=== PATIENT | male | born 1955 | race Caucasian/White ===

== ENCOUNTER 2018-02-07 08:35 | Observation (INO) | payer BC ==
[2018-02-04 18:41] LABS: BASOPHILS % 0.9 % (0.0-1.0); EOSINOPHILS # (AUTO) 0.1 (0.0-0.4); EOSINOPHILS % 2.9 % (0.0-6.0); HEMATOCRIT 30.9 % (38.2-49.6); HEMOGLOBIN 10.2 g/dL (14.0-18.0); LYMPHOCYTES # (AUTO) 0.9 (1.0-3.2); LYMPHOCYTES % 21.3 % (18.0-39.1); MEAN CORPUSCULAR HEMOGLOBIN 31.2 pg (28-32); MEAN CORPUSCULAR VOLUME 94.5 fL (81-99); MONOCYTES # (AUTO) 0.5 (0.2-0.8); MONOCYTES % 10.9 % (4.4-11.3); NEUTROPHILS # (AUTO) 2.8 (2.1-6.9); NEUTROPHILS % 63.5 % (38.7-80.0); PLATELET COUNT 72 x10e3/uL (140-360); RED BLOOD COUNT 3.27 x10e6/uL (4.3-5.7); RED CELL DISTRIBUTION WIDTH 15.5 % (11.7-14.4)
[2018-02-04 18:56] LABS: ALANINE AMINOTRANSFERASE 20 IU/L (0-55); ALBUMIN 2.7 g/dL (3.5-5.0); ALBUMIN/GLOBULIN RATIO 0.9 (0.8-2.0); ALKALINE PHOSPHATASE 134 IU/L (40-150); ANION GAP 12.6 mmol/L (8-16); BLOOD UREA NITROGEN 8 mg/dL (7-26); BUN/CREATININE RATIO 9 (6-25); CALCIUM 8.7 mg/dL (8.4-10.2); CARBON DIOXIDE 29 mmol/L (22-29); CHLORIDE 101 mmol/L (98-107); CREATININE, SERUM 0.92 mg/dL (0.72-1.25); EST GLOMERULAR FILTRATION RATE > 60 ML/MIN (60-); GLUCOSE 102 mg/dL (74-118); POTASSIUM 3.6 mmol/L (3.5-5.1); SODIUM 139 mmol/L (136-145)
[2018-02-04 18:57] LABS: INR 1.29; PROTHROMBIN TIME 17.2 seconds (11.9-14.5)
[2018-02-04 18:58] LABS: PARTIAL THROMBOPLASTIN TIME 37.4 seconds (23.8-35.5)
--- NOTE | 2018-02-04 19:04 | Diagnostic Imaging Report ---
EXAMINATION: CHEST 2 VIEWS INDICATION: ^PRE ADMIT ^[id number] ^175 COMPARISON: None FINDINGS: PA and lateral views TUBES and LINES: None. LUNGS: Lungs are well inflated. Right lower lobe airspace opacity with mild volume loss. There is no evidence of pneumonia or pulmonary edema. PLEURA: Small right pleural effusion. No pneumothorax. HEART AND MEDIASTINUM: The cardiomediastinal silhouette is unremarkable. BONES AND SOFT TISSUES: Degenerative changes of the thoracic spine. Soft tissues are unremarkable. UPPER ABDOMEN: No free air under the diaphragm. IMPRESSION: Small right pleural effusion with adjacent small airspace opacity of indeterminate significance. Recommend further evaluation due to without IV contrast. Signed by: Dr. Elsa Jensen M.D. on 02/04/2018 7:00 PM
[~2018-02-07] VITALS: Ht 177.8 cm; Wt 89.1 kg
[~2018-02-07 08:35] MED LIST: B-COMPLEX PLUS1 EACH; CALCIUM 500+D1 EACH; COLCRYS0.6 MG PO; ERGOCALCIF8000 UNIT/; FUROSEMIDE40 MG PO; GABAPENTIN100 MG; GENERLAC10 GM/15 M PO; JANUVIA100 MG PO; OMEPRAZOLE40 MG; PRAVASTATIN SOD40 MG PO; SPIRONOLACTONE25 MG PO; TEMAZEPAM15 MG PO; ULTRAM50 MG PO; XIFAXAN550 MG
--- OUTSIDE RECORDS SUMMARY | 2018-02-07 08:37 | XMS REPORT | Clinical Summary ---
Author Author [facility] [employer] Address Unknown Phone Unavailable Care Team Providers Care Swimming Professor Name Role Phone Patric Romero MD PCP Unavailable Allergies No Known Allergies Medications End Date Status Medication Sig Dispensed Refills Start Date Active JANUVIA 25 mg tablet TK 1 T PO QD 11 6 Active lactulose (GENERLAC) 10 Take 45 mL by 0 gram/15 mL solution mouth 2 (two) times a day. Active CALCIUM CARBONATE/VITAMIN Take by 0 D3 (CALTRATE 600 + D mouth. ORAL) Active b complex vitamins Take 1 0 capsule capsule by mouth. Active cholecalciferol, vitamin Take 1,000 0 D3, (VITAMIN D3) 1,000 Units by unit capsule mouth. Active gabapentin (NEURONTIN) TK 1 C PO 2 x 0 100 mg capsule daily 6 Active omeprazole (PriLOSEC) 20 Take 40 mg by 0 MG capsule mouth. Active pravastatin (PRAVACHOL) TK 1 T PO D 0 40 MG tablet 6 Active riFAXimin (XIFAXAN) 550 TK 1 T PO 0 mg tablet BID 6 Active ergocalciferol (VITAMIN Take 50,000 0 D2) 50,000 unit capsule Units by mouth once a week. Active temazepam (RESTORIL) 15 Take 15 mg by 0 mg capsule mouth nightly as needed for sleep. Active traMADol (ULTRAM) 50 mg Take 50 mg by 0 tablet mouth every 6 (six) hours as needed for moderate pain. 08/23/2017 Discontinued ferrous sulfate 325 (65 TK ONE T PO 3 FE) MG tablet TID 6 08/23/2017 Discontinued gabapentin (NEURONTIN) TK 1 C PO TID 0 400 MG capsule 6 08/26/2017 Discontinued XIFAXAN 550 mg tablet TK 1 T PO 10 BID 6 08/23/2017 Discontinued spironolactone TK 2 TS PO QD 3 (ALDACTONE) 50 MG tablet 6 08/26/2017 Discontinued potassium chloride TK 1 T PO BID 10 (K-DUR) 20 MEQ CR tablet 6 08/23/2017 Discontinued pravastatin (PRAVACHOL) TK 1 T PO D 0 40 MG tablet 6 12/24/2017 Discontinued acetaminophen-codeine TK 1 T PO QID 0 (TYLENOL with CODEINE #4) 6 300-60 mg per tablet 08/23/2017 Discontinued omeprazole (PriLOSEC) 40 Take 40 mg by 0 MG capsule mouth daily. 08/23/2017 Discontinued cholecalciferol, vitamin Take 1,000 0 D3, (VITAMIN D3) 1,000 Units by unit tablet mouth daily. 08/26/2017 Discontinued chlordiazePOXIDE Take 5 mg by 0 (LIBRIUM) 5 MG capsule mouth 3 (three) times a day as needed for anxiety. 08/23/2017 Discontinued furosemide (LASIX) 40 mg Take 40 mg by 0 tablet mouth 2 (two) times a day. 08/26/2017 Discontinued VITAMIN B COMPLEX VIT C Take by 0 NO.4 (SUPER B COMPLEX + C mouth. ORAL) 08/26/2017 Discontinued traMADol (ULTRAM) 50 mg Take 50 mg by 0 tablet mouth every 6 (six) hours as needed for moderate pain. 11/29/2017 Discontinued escitalopram (LEXAPRO) 5 Take 5 mg by 0 MG tablet mouth. 08/23/2017 Discontinued acetaminophen-codeine TK 1 T PO 0 (TYLENOL WITH CODEINE #4) QID. 8 300-60 mg per tablet 08/23/2017 Discontinued calcium carbonate-vitamin Take by 0 D3 600 mg(1,500mg) -200 mouth. unit per tablet 11/29/2017 Discontinued ferrous sulfate 325 (65 TK ONE T PO 0 FE) MG tablet TID 6 11/29/2017 Discontinued furosemide (LASIX) 40 mg Take 20 mg by 0 tablet mouth. 8 08/23/2017 Discontinued lactulose (CHRONULAC) 10 Take 45 mL by 0 gram/15 mL solution mouth. 08/26/2017 Discontinued sitaGLIPtin (JANUVIA) 100 TK 1 T PO QD 0 MG tablet 6 11/29/2017 Discontinued spironolactone TK 2 TS PO QD 0 (ALDACTONE) 50 MG tablet 6 12/24/2017 Discontinued apixaban (ELIQUIS) 2.5 mg Take 2.5 mg 0 tablet by mouth 2 (two) times a day. Active Problems Problem Noted Date Impingement syndrome of both shoulders 12/28/2015 Encounters Care Team Description Date Type Specialty Patric Romero MD Alcoholic cirrhosis of liver with ascites (HCC) 01/30/2018 Hospital Radiology Encounter Patric Romero MD Alcoholic cirrhosis of liver with ascites (HCC) (Primary Dx) 01/29/2018 Transcribe Access Orders Patric Romero MD Hematuria syndrome 12/27/2017 Hospital Radiology Encounter Patric Romero MD Hematuria syndrome (Primary Dx) 12/27/2017 Transcribe Access Orders Patric Romero MD Ascites due to alcoholic cirrhosis (HCC) 12/25/2017 Hospital Radiology Encounter Chrissie Huynh 12/24/2017 Telephone Radiology Chrissie Huynh 12/23/2017 Telephone Radiology Patric Romero MD Ascites due to alcoholic cirrhosis (HCC) (Primary Dx) 12/19/2017 Transcribe Access Orders Patric Romero MD Alcoholic cirrhosis of liver with ascites (HCC) 12/10/2017 Hospital Radiology Encounter Patric Romero MD Alcoholic cirrhosis of liver with ascites (HCC) (Primary Dx) 12/09/2017 Transcribe Access Orders Patric Romero MD Alcoholic cirrhosis of liver with ascites (HCC); Other ascites 11/29/2017 Hospital Radiology Encounter Patric Romero MD Alcoholic cirrhosis of liver with ascites (Primary Dx); Other ascites 11/15/2017 Transcribe Access Orders Patric Romero MD Alcoholic cirrhosis of liver with ascites 10/09/2017 Hospital Radiology Encounter Sury Klein 10/08/2017 Telephone Radiology Patric Romero MD Alcoholic cirrhosis of liver with ascites (Primary Dx) 10/07/2017 Transcribe Access Orders Patric Romero MD Alcoholic cirrhosis of liver with ascites 08/26/2017 Hospital Radiology Encounter Patric Romero MD Alcoholic cirrhosis of liver with ascites (Primary Dx) 08/22/2017 Transcribe Access Orders after 02/06/2017 Family History Medical History Relation Name Comments Heart disease Brother Heart disease Brother Hypertension Father Hypertension Mother Relation Name Status Comments Brother Alive Brother Father Mother Social History Date Tobacco Use Types Packs/Day Years Used Quit: 1989 Former Smoker Cigarettes 1 20 Smokeless Tobacco: Former Chew User Alcohol Use Drinks/Week oz/Week Comments No hx quit 4 yrs ago Sex Assigned at Date Recorded Not on file Industry Job Start Date Occupation Not on file Not on file Not on file Travel End Travel History Travel Start No recent travel history available. Last Filed Vital Signs Time Taken Vital Sign Reading 01/30/2018 1:53 PM [employer] Blood Pressure 130/65 01/30/2018 3:30 PM [employer] Pulse 80 12/25/2017 12:07 PM CDT Temperature 36.3 C (97.4 F) 01/30/2018 1:53 PM [employer] Respiratory Rate 17 01/30/2018 3:30 PM [employer] Oxygen Saturation 100% - Inhaled Oxygen - Concentration 12/25/2017 7:40 AM CDT Weight 83.4 kg (183 lb 14.4 oz) 12/25/2017 7:40 AM CDT Height 177.8 cm (5' 10") 12/25/2017 7:40 AM CDT Body Mass Index 26.39 Plan of Treatment Health Maintenance Due Date Last Done Comments COLON CANCER SCREENING 2006 SHINGLES VACCINES (1 of 2006 2) INFLUENZA VACCINE 09/25/2017 Implants Device Identifier Shelf Expiration Date Model / Serial / Lot Implanted Type Area Manufactur er 02/08/2020 [id number] / / [id number] Needle Yueh Centsis 19ga Str 5fr Surgical N/A: N/A COOK 7cm Cath Strl - [id number] Implants; INTERVENTI Implanted: 08/26/2017 (Quantity not Expanders; ONAL on file) Extenders; RADIOLOGY Surgical Wires [id number] / / Needle Yueh Centesis 19ga Pigtail Surgical N/A: N/A COOK Cath 5fr 15cm - [id number] Implants; INTERVENTI Implanted: 10/09/2017 (Quantity not Expanders; ONAL on file) Extenders; RADIOLOGY Surgical Wires 09/12/2020 [id number] / / [id number] Needle Yueh Centsis 19ga Str 5fr Surgical N/A: N/A COOK 7cm Cath Strl - [id number] Implants; INTERVENTI Implanted: 11/29/2017 (Quantity not Expanders; ONAL on file) Extenders; RADIOLOGY Surgical Wires 09/25/2020 [id number] / / [id number] Needle Yueh Centsis 19ga Str 5fr Surgical N/A: N/A COOK 7cm Cath Strl - [id number] Implants; INTERVENTI Implanted: 12/10/2017 (Quantity not Expanders; ONAL on file) Extenders; RADIOLOGY Surgical Wires 10/16/2020 [id number] / / [id number] Needle Yueh Centsis 19ga Str 5fr Surgical N/A: N/A COOK 7cm Cath Strl - [id number] Implants; INTERVENTI Implanted: 12/25/2017 (Quantity not Expanders; ONAL on file) Extenders; RADIOLOGY Surgical Wires Procedures Comments Procedure Name Priority Date/Time Associated Diagnosis US ABDOMINAL PARACENTESIS Routine 01/30/2018 Alcoholic cirrhosis of IMAGING 2:56 PM [employer] liver with ascites (HCC) ESTIMATED GFR Routine 01/30/2018 11:00 AM [employer] PARTIAL THROMBOPLASTIN Routine 01/30/2018 TIME (PTT) 11:00 AM [employer] PROTHROMBIN TIME WITH INR Routine 01/30/2018 11:00 AM [employer] BASIC METABOLIC PANEL Routine 01/30/2018 11:00 AM [employer] HC COMPLETE BLD COUNT Routine 01/30/2018 W/AUTO DIFF 11:00 AM [employer] US PELVIC NON OB LIMITED Routine 12/27/2017 Hematuria syndrome 5:08 PM CDT US ABDOMINAL PARACENTESIS Routine 12/25/2017 Ascites due to alcoholic IMAGING 12:55 PM CDT cirrhosis (HCC) PARTIAL THROMBOPLASTIN Routine 12/25/2017 TIME (PTT) 8:43 AM CDT PROTHROMBIN TIME WITH INR Routine 12/25/2017 8:43 AM CDT US ABDOMINAL PARACENTESIS Routine 12/10/2017 Alcoholic cirrhosis of IMAGING 2:03 PM CDT liver with ascites (HCC) ESTIMATED GFR Routine 12/10/2017 11:34 AM CDT PARTIAL THROMBOPLASTIN Routine 12/10/2017 TIME (PTT) 11:34 AM CDT PROTHROMBIN TIME WITH INR Routine 12/10/2017 11:34 AM CDT BASIC METABOLIC PANEL Routine 12/10/2017 11:34 AM CDT HC COMPLETE BLD COUNT Routine 12/10/2017 W/AUTO DIFF 11:34 AM CDT US ABDOMINAL PARACENTESIS Routine 11/29/2017 Alcoholic cirrhosis of IMAGING 10:11 AM CDT liver with ascites (HCC) Other ascites ESTIMATED GFR Routine 11/29/2017 7:44 AM CDT PARTIAL THROMBOPLASTIN Routine 11/29/2017 TIME (PTT) 7:44 AM CDT PROTHROMBIN TIME WITH INR Routine 11/29/2017 7:44 AM CDT BASIC METABOLIC PANEL Routine 11/29/2017 7:44 AM CDT HC COMPLETE BLD COUNT Routine 11/29/2017 W/AUTO DIFF 7:44 AM CDT POC GLUCOSE Routine 11/29/2017 7:39 AM CDT US ABDOMINAL PARACENTESIS Routine 10/09/2017 Alcoholic cirrhosis of IMAGING 9:16 AM CDT liver with ascites ZZESTIMATED GFR Routine 10/09/2017 7:00 AM CDT PARTIAL THROMBOPLASTIN Routine 10/09/2017 TIME (PTT) 7:00 AM CDT PROTHROMBIN TIME WITH INR Routine 10/09/2017 7:00 AM CDT BASIC METABOLIC PANEL Routine 10/09/2017 7:00 AM CDT HC COMPLETE BLD COUNT Routine 10/09/2017 W/AUTO DIFF 7:00 AM CDT US ABDOMINAL PARACENTESIS Routine 08/26/2017 Alcoholic cirrhosis of IMAGING 2:22 PM CDT liver with ascites POC GLUCOSE Routine 08/26/2017 12:45 PM CDT MANUAL DIFFERENTIAL Routine 08/26/2017 12:45 PM CDT ZZESTIMATED GFR Routine 08/26/2017 12:45 PM CDT PARTIAL THROMBOPLASTIN Routine 08/26/2017 TIME (PTT) 12:45 PM CDT PROTHROMBIN TIME WITH INR Routine 08/26/2017 12:45 PM CDT BASIC METABOLIC PANEL Routine 08/26/2017 12:45 PM CDT CBC WITH PLATELET AND Routine 08/26/2017 DIFFERENTIAL 12:45 PM CDT after 02/06/2017 Results * US Abdominal Paracentesis Imaging (01/30/2018 2:56 PM [employer]) Only the most recent of 6 results within the time period is included. Narrative Performed At EXAMINATION:US ABDOMINAL PARACENTESIS IMAGING [facility] CLINICAL HISTORY: K70.31 Alcoholic cirrhosis of liver with ascites, k70.31 COMPARISON: Paracentesis from December 25, 2017 TECHNIQUE: The procedure's risks, benefits, and alternatives were discussed with the patient and written, informed consent was obtained. Using ultrasound guidance, a site for needle entry was selected and the overlying skin was prepped and draped in the usual sterile fashion. 1% buffered lidocaine was used for local anesthesia. A 5 Micronesian Yueh catheter was inserted into the peritoneal cavity. 5 L of yellow peritoneal fluid was removed. Aspirated fluid was also sent for laboratory analysis. The patient tolerated the procedure without difficulty. IMPRESSION: Ultrasound-guided diagnostic and therapeuticparacentesis. [id number] Procedure Note Hm Interface, Radiology Results Incoming - 01/30/2018 5:37 PM [employer] EXAMINATION: US ABDOMINAL PARACENTESIS IMAGING CLINICAL HISTORY: K70.31 Alcoholic cirrhosis of liver with ascites, k70.31 COMPARISON: Paracentesis from December 25, 2017 TECHNIQUE: The procedure's risks, benefits, and alternatives were discussed with the patient and written, informed consent was obtained. Using ultrasound guidance, a site for needle entry was selected and the overlying skin was prepped and draped in the usual sterile fashion. 1% buffered lidocaine was used for local anesthesia. A 5 Micronesian Yueh catheter was inserted into the peritoneal cavity. 5 L of yellow peritoneal fluid was removed. Aspirated fluid was also sent for laboratory analysis. The patient tolerated the procedure without difficulty. IMPRESSION: Ultrasound-guided diagnostic and therapeutic paracentesis. [id number] Performing Organization Address City/[facility]/Zipcode Phone Number RELL [phone] [place] [address] * Estimated GFR (01/30/2018 11:00 AM [employer]) Only the most recent of 3 results within the time period is included. Estimated GFR 81 mL/min/1.73 m2 [facility] Comment: [facility] CatergoryUnitsInte rpretation G1 >=90 Normal or high G2 60-89Mildly decreased G4x67-78 Mildly to moderately decreased L2e48-62 Moderately to severely decreased G4 15-29Severely decreased G5 <15Kidney failure The eGFR was calculated using the Chronic Kidney Disease Epidemiology Collaboration (CKD-EPI) equation. Interpretation is based on recommendations of the National Kidney Foundation-Kidney Disease Outcomes Quality Initiative (NKF-KDOQI) published in 2014. Specimen Plasma specimen Performing Organization Address [facility] Cent[facility]ode Phone Number [facility] [address] [place] [address] PATHOLOGY AND GENOMIC MEDICINE [place] [address] [address] * Partial thromboplastin time, activated (01/30/2018 11:00 AM [employer]) Only the most recent of 6 results within the time period is included. PTT 39.3 (H) 23.0 - 36.0 sec [facility] Comment: [facility] PTT therapeutic range for unfractionated heparin is 61.0-112.0 seconds which corresponds to Anti-Xa 0.3-0.7 U/ml. Note:Change in Panic Value The PTT Panic Value is changing from 110 sec. to 100 sec. due to new instrumentation and reagents. Correlation studies have been performed to validate this result. Specimen Blood Performing Organization Address City/[facility]/Zipcode Phone Number [facility] [address] [place] [address] PATHOLOGY AND [facility] MEDICINE [address] * Prothrombin time with INR (01/30/2018 11:00 AM [employer]) Only the most recent of 6 results within the time period is included. Prothrombin time 15.5 (H) 11.5 - 14.5 sec [facility] INR 1.26 [facility] Comment: [facility] For patients on anticoagulant therapy, reference ranges below: Indication: INR Value Treatment of Venous Thrombosis, 2.0-3.0 pulmonary emboli, or prophylaxis of a venous thrombosis, or systemic emboli. High dose, high risk patients 3.0-4.5 with mechanical valves. NOTE:INR values over 3.0 are sometimes associated with gastrointestinal hemorrhage, especially values over 4.0. Specimen Blood Performing Organization Address City/[facility]/Zipcode Phone Number [facility] [address] [place] [phone] PATHOLOGY AND [facility] MEDICINE [address] * CBC with platelet and differential (01/30/2018 11:00 AM [employer]) Only the most recent of 5 results within the time period is included. WBC 3.4 (L) 4.2 - 11.0 k/uL [facility] RBC 3.37 (L) 4.04 - 5.86 m/uL [facility] HGB 10.3 (L) 13.0 - 17.3 g/dL [facility] HCT 32.3 (L) 34.0 - 45.0 % [facility] MCV 95.8 80.0 - 98.0 fL [facility] MCH 30.6 27.0 - 34.0 pg [facility] MCHC 31.9 31.5 - 36.5 g/dL [facility] RDW - SD 56.6 (H) 37.0 - 51.0 fL [facility] MPV 10.8 (H) 7.4 - 10.4 fL [facility] Platelet count 64 (L) 150 - 400 k/uL [facility] Nucleated RBC 0.00 /100 WBC [facility] Neutrophils 68.5 (H) 36.0 - 66.0 % [facility] Lymphocytes 19.2 (L) 24.0 - 44.0 % [facility] Monocytes 8.5 (H) 0.0 - 6.0 % [facility] Eosinophils 2.9 0.0 - 6.0 % [facility] Basophils 0.6 0.0 - 1.2 % [facility] Immature granulocytes 0.3 0.0 - 1.0 % [facility] Specimen Blood Performing Organization Address City/[facility] [place] [address] PATHOLOGY AND GENOMIC MEDICINE [address] * Basic metabolic panel (01/30/2018 11:00 AM [employer]) Only the most recent of 5 results within the time period is included. Sodium 142 135 - 150 mEq/L [facility] Potassium 3.6 3.5 - 5.0 mEq/L [facility] Chloride 101 98 - 112 mEq/L [facility] CO2 33 (H) 24 - 31 mmol/L [facility] Anion gap 8@ANIO 7 - 15 mEq/L [facility] BUN 9 7 - 18 mg/dL [facility] Creatinine 1.00 0.70 - 1.20 mg/dL [facility] Glucose 88 65 - 100 mg/dL [facility] Calcium 9.0 8.8 - 10.2 mg/dL [facility] Specimen Plasma specimen Performing Organization Address City/[facility]/Zipcode Phone Number [facility] [address] [facility] [place] [address] PATHOLOGY AND GENOMIC MEDICINE [facility] [address] [place], [place] [id number] [place] [address] * US Pelvic Non Ob Limited (12/27/2017 5:08 PM CDT) Narrative Performed At Procedure: US PELVIC NON OB LIMITED [facility] REFERRING PHYSICIAN: PATRIC ROMERO HISTORY: R31.9 Hematuriaunspecified, HEMATURIA SYNDROME COMPARISON: None TECHNIQUE: Transabdominal grayscale and Doppler pelvic ultrasound was performed. FINDINGS: The prevoid urinary bladder volume is 143 ACC. The postvoid volume is 49.4 cc. The urinary bladder wall measuring approximately 5.4 mm on the prevoid images. Moderate ascites is noted. IMPRESSION: Unilateral wall thickening which may be due to poor distention. However, cystitis cannot be entirely excluded. Recommend clinical correlation. [id number] Procedure Note Interface, Radiology Results Incoming - 12/27/2017 5:48 PM CDT Procedure: US PELVIC NON OB LIMITED REFERRING PHYSICIAN: PATRIC ROMERO HISTORY: R31.9 Hematuria unspecified, HEMATURIA SYNDROME COMPARISON: None TECHNIQUE: Transabdominal grayscale and Doppler pelvic ultrasound was performed. FINDINGS: The prevoid urinary bladder volume is 143 ACC. The postvoid volume is 49.4 cc. The urinary bladder wall measuring approximately 5.4 mm on the prevoid images. Moderate ascites is noted. IMPRESSION: Unilateral wall thickening which may be due to poor distention. However, cystitis cannot be entirely excluded. Recommend clinical correlation. [id number] Performing Organization Address City/State/Zipcode Phone Number [facility] [address] [place] [address] * POC glucose (11/29/2017 7:39 AM CDT) Only the most recent of 2 results within the time period is included. POC glucose 109 (H) 65 - 100 mg/dL [facility] DEPARTMENT OF Comment: PATHOLOGY AND Meter ID: [id number] GENOMIC MEDICINE Conductor Sleeping Car: Lori Jones Performing Organization Address City/State/Zipcode Phone Number [facility] DEPARTMENT OF [address] [place] [address] PATHOLOGY AND GENOMIC MEDICINE * Estimated GFR (10/09/2017 7:00 AM CDT) Only the most recent of 2 results within the time period is included. GFR Non Af Amer 68 mL/min/1.73 m2 [facility] DEPARTMENT OF PATHOLOGY AND GENOMIC MEDICINE GFR Af Amer 82 mL/min/1.73 m2 [facility] DEPARTMENT OF Comment: PATHOLOGY AND Chronic kidney disease: <60 GENOMIC MEDICINE mL/min/1.73m2 Kidney failure: <15 mL/min/1.73m2 The estimated GFR is calculated from the IDMS-traceable Modification of Diet in Renal Disease Equation. The accuracy of the calculation is poor when the creatinine is normal. Calculated values >90 mL/min/1.73m2 are not reported. This equation has not been validated in children (<18 years), women, the elderly (>70 years), or ethnic groups other than Caucasians and Americans. Specimen Plasma specimen Performing Organization Address City/State/[facility] Cent[facility]ode Phone Number [place] [phone] [facility] [place] [address] PATHOLOGY AND GENOMIC MEDICINE * Manual differential (08/26/2017 12:45 PM CDT) Manual differential PERFORMED [facility] DEPARTMENT OF PATHOLOGY AND GENOMIC MEDICINE Neutrophils 79.0 (H) 36.0 - 66.0 % [facility] DEPARTMENT OF PATHOLOGY AND GENOMIC MEDICINE Lymphocytes 17.0 (L) 24.0 - 44.0 % [facility] DEPARTMENT OF PATHOLOGY AND GENOMIC MEDICINE Monocytes 4.0 0.0 - 6.0 % [facility] DEPARTMENT OF PATHOLOGY AND GENOMIC MEDICINE Eosinophils 0.0 0.0 - 6.0 % [facility] DEPARTMENT OF PATHOLOGY AND GENOMIC MEDICINE Basophils 0.0 0.0 - 1.2 % [facility] DEPARTMENT OF PATHOLOGY AND GENOMIC MEDICINE Metamyelocytes 0 0 - 1 % [facility] DEPARTMENT OF PATHOLOGY AND GENOMIC MEDICINE Promyelocytes 0 0 - 1 % [facility] DEPARTMENT OF PATHOLOGY AND GENOMIC MEDICINE Platelet slide review Decreased (A) [facility] DEPARTMENT OF PATHOLOGY AND GENOMIC MEDICINE Ovalocytes Few [facility] DEPARTMENT OF PATHOLOGY AND GENOMIC MEDICINE Enlarged platelets Rare [facility] DEPARTMENT OF PATHOLOGY AND GENOMIC MEDICINE Performing Organization Address City/State/Zipcode Phone Number [facility] [address] [facility] [place] [address] PATHOLOGY AND GENOMIC MEDICINE after 02/06/2017 Insurance Payer Benefit Subscriber ID Type Phone Address Plan / Group BCBS BCBS xxxxxxxxxxxx PPO CHOICE PPO/CHERIE HODGES PPO Advance Directives Patient has advance care planning documents on file. For more information, [place] contact: Chris Pike [address] [place] [address]
--- OUTSIDE RECORDS SUMMARY | 2018-02-07 08:38 | XMS REPORT ---
[facility] Address Unknown Phone Unavailable Care Team Providers Care Pile Driving Technician Name Role Phone MEAGAN LEY Unavailable Unavailable ANANDA VELAZQUEZ Unavailable Unavailable Costa IRBY Unavailable Unavailable DELMAR RENNER Unavailable Unavailable Costa WALLACE Unavailable Unavailable ALAN, ARIF Unavailable Unavailable Problems This patient has no known problems. Allergies, Adverse Reactions, Alerts This patient has no known allergies or adverse reactions. Medications This patient has no known medications. Results Test Description Test Time Test Comments Text Results Atomic Results Result Comments CHEST 2 VIEWS 2018-02-04 18:59:00 [place] [address] Patient Name: SANAZ GRADY MR #: [id number] : 1955 Age/Sex: 62/M Req #: [id number] Adm Physician: Ordered by: MEAGAN LEY MD Report #: [id number] Location: OR Room/Bed: Procedure: [id number] DX/CHEST 2 VIEWS Exam Date: 02/04/18 Exam Time: 1754 REPORT STATUS: Signed EXAMINATION: CHEST 2 VIEWS INDICATION: PRE ADMIT [id number] COMPARISON: None FINDINGS: PA and lateral views TUBES and LINES: None. LUNGS: Lungs are well inflated. Right lower lobe airspace opacity with mild volume loss. There is no evidence of pneumonia or pulmonary edema. PLEURA: Small right pleural effusion. No pneumothorax. HEART AND MEDIASTINUM: The cardiomediastinal silhouette is unremarkable. BONES AND SOFT TISSUES: Degenerative changes of the thoracic spine. Soft tissues are unremarkable. UPPER ABDOMEN: No free air under the diaphragm. IMPRESSION: Small right pleural effusion with adjacent small airspace opacity of indeterminate significance. Recommend further evaluation due to without IV contrast. Signed by: Dr. Elsa Jensen M.D. on 02/04/2018 7:00 PM Dictated By: ELSA JENSEN MD 99 Transcribed By: CHRISTINA on 02/04/181899 COPY TO: MEAGAN LEY MD BODY FLUID CULTURE + GRAM STAIN 2018-01-04 13:30:00 CULTURE (BEAKER) (test wnvw=9915) No growth GRAM STAIN RESULT (BEAKER) (test pbye=0676) No White blood cells seen GRAM STAIN RESULT (BEAKER) (test adqu=37774) No organisms seen POCT-GLUCOSE [id number] 08:45:00* Test Item Value Reference Range Comments POC-GLUCOSE METER (BEAKER) (test owjm=2545) 102 mg/dL 70-110 TESTED AT [facility] [address] [facility] [address] BODY FLUID CELL COUNT WITH [id number] 17:16:00* Test Item Value Reference Range Comments APPEARANCE FLUID (BEAKER) (test bfbb=660) Slightly Hazy Clear COLOR FLUID (BEAKER) (test hvww=071) Straw Colorless, Straw RBC FLUID (BEAKER) (test crvb=716) 1420 /cu mm <=1 ADJUSTED WBC FLUID (BEAKER) (test sqcw=4416) 103 /cu mm <=5 LINING CELLS (BEAKER) (test jzij=7475) 10 /cu mm <=1 NEUTROPHILS FLUID (BEAKER) (test hmsb=7522) 0 % LYMPHS FLUID (BEAKER) (test euko=843) 26 % MONO/MACROPHAGE FLUID (BEAKER) (test wbna=302) 74 % EOSINOPHILS FLUID (BEAKER) (test cgta=755) 0 % BASO FLUID (BEAKER) (test xctk=349) 0 % CONTAINER BODY FLUID (BEAKER) (test sldt=9743) EDTA Tube U/S, [id number] 10:04:00Referring: Dr. Francis Jeronimo Jr.Reason for exam:->ascitesFINAL REPORT PROCEDURE: Ultrasound- guided paracentesis. INDICATION: 62-year-old man with ascites. DESCRIPTION: After obtaining informed written consent, ultrasound scan of the abdomen identified ascites in the right lower quadrant. The overlying skin was prepped and draped in the usual, sterile fashion and local 1% lidocaine anesthesia was administered. A 5 Palau[place] catheter was advanced into the peritoneal cavity and 4500 cc of serous fluid was removed. The catheter was removed without immediate complication. Samples were sent for analysis. IMPRESSION:Uncomplicated ultrasound-guided paracentesis with 4500 cc fluid removed. Signed: Chad Palma Verified Date/Time: 01/01/2018 10:04:31 Reading Location: [address] Ultrasound Reading Room GLOBIN [id number] 09:06:00* Test Item Value Reference Range Comments HEMOGLOBIN A1C (BEAKER) (test yiip=537) 5.5 % 4.3-6.1 POCT-GLUCOSE [id number] 08:15:00* Test Item Value Reference Range Comments POC-GLUCOSE METER (BEAKER) (test kwfu=2453) 138 mg/dL 70-110 TESTED AT [address] [address] CBC W/PLT COUNT & AUTO [id number] 05:21:00* Test Item Value Reference Range Comments WHITE BLOOD CELL COUNT (BEAKER) (test uvch=491) 3.8 K/ L 3.5-10.5 RED BLOOD CELL COUNT (BEAKER) (test seyf=235) 3.02 M/ L 4.63-6.08 HEMOGLOBIN (BEAKER) (test nski=933) 9.2 GM/DL 13.7-17.5 HEMATOCRIT (BEAKER) (test puyg=241) 29.3 % 40.1-51.0 MEAN CORPUSCULAR VOLUME (BEAKER) (test kcxa=982) 97.0 fL 79.0-92.2 MEAN CORPUSCULAR HEMOGLOBIN (BEAKER) (test paxo=380) 30.5 pg 25.7-32.2 MEAN CORPUSCULAR HEMOGLOBIN CONC (BEAKER) (test nyns=021) 31.4 GM/DL 32.3-36.5 RED CELL DISTRIBUTION WIDTH (BEAKER) (test kbyk=624) 16.3 % 11.6-14.4 PLATELET COUNT (BEAKER) (test rupb=674) 62 K/CU MM 150-450 MEAN PLATELET VOLUME (BEAKER) (test mkgj=518) 11.0 fL 9.4-12.4 NUCLEATED RED BLOOD CELLS (BEAKER) (test avzy=215) 0 /100 WBC 0-0 NEUTROPHILS RELATIVE PERCENT (BEAKER) (test puex=516) 84 % LYMPHOCYTES RELATIVE PERCENT (BEAKER) (test ovbl=533) 10 % MONOCYTES RELATIVE PERCENT (BEAKER) (test bjxm=562) 6 % EOSINOPHILS RELATIVE PERCENT (BEAKER) (test iyaj=356) 0 % BASOPHILS RELATIVE PERCENT (BEAKER) (test nbge=244) 0 % NEUTROPHILS ABSOLUTE COUNT (BEAKER) (test tknj=854) 3.24 K/ L 1.78-5.38 LYMPHOCYTES ABSOLUTE COUNT (BEAKER) (test ufuw=632) 0.38 K/ L 1.32-3.57 MONOCYTES ABSOLUTE COUNT (BEAKER) (test gbwe=927) 0.21 K/ L 0.30-0.82 EOSINOPHILS ABSOLUTE COUNT (BEAKER) (test lwxb=307) 0.00 K/ L 0.04-0.54 BASOPHILS ABSOLUTE COUNT (BEAKER) (test ccys=892) 0.00 K/ L 0.01-0.08 IMMATURE GRANULOCYTES-RELATIVE PERCENT (BEAKER) (test xpiy=4620) 0 % 0-1 [id number] 05:15:00* Test Item Value Reference Range Comments PHOSPHORUS (BEAKER) (test aing=306) 3.0 mg/dL 2.3-4.7 [id number] 05:15:00* Test Item Value Reference Range Comments MAGNESIUM (BEAKER) (test syal=449) 1.9 mg/dL 1.6-2.6 BASIC METABOLIC [id number] 05:15:00* Test Item Value Reference Range Comments SODIUM (BEAKER) (test cksr=648) 135 meq/L 136-145 POTASSIUM (BEAKER) (test gcdc=442) 3.9 meq/L 3.5-5.1 CHLORIDE (BEAKER) (test aukg=516) 110 meq/L 98-107 CO2 (BEAKER) (test rgvr=768) 21 meq/L 22-29 BLOOD UREA NITROGEN (BEAKER) (test kdwd=497) 12 mg/dL 7-21 CREATININE (BEAKER) (test yiqk=944) 1.16 mg/dL 0.57-1.25 GLUCOSE RANDOM (BEAKER) (test gyif=842) 137 mg/dL 70-105 CALCIUM (BEAKER) (test tlah=009) 8.5 mg/dL 8.4-10.2 EGFR (BEAKER) (test iaus=8122) 64 mL/min/1.73 sq m ESTIMATED GFR IS NOT ACCURATE CREATININE CLEARANCE IN PREDICTING GLOMERULAR FILTRATION RATE. ESTIMATED GFR IS NOT APPLICABLE FOR DIALYSIS PATIENTS. HEPATIC FUNCTION [id number] 05:15:00* Test Item Value Reference Range Comments TOTAL PROTEIN (BEAKER) (test ckmq=501) 5.5 gm/dL 6.0-8.3 ALBUMIN (BEAKER) (test tdds=8344) 2.9 g/dL 3.5-5.0 BILIRUBIN TOTAL (BEAKER) (test kfku=127) 0.8 mg/dL 0.2-1.2 BILIRUBIN DIRECT (BEAKER) (test jxee=241) 0.4 mg/dL 0.1-0.5 ALKALINE PHOSPHATASE (BEAKER) (test aqnd=409) 64 U/L 40-150 AST (SGOT) (BEAKER) (test fhmm=086) 55 U/L 5-34 ALT (SGPT) (BEAKER) (test edds=804) 26 U/L 6-55 PROTHROMBIN [id number] 04:59:00* Test Item Value Reference Range Comments PROTIME (BEAKER) (test adaw=344) 18.6 seconds 11.7-14.7 INR (BEAKER) (test yixb=772) 1.6 <=5.9 RECOMMENDED COUMADIN/WARFARIN INR THERAPY RANGESSTANDARD DOSE: 2.0 - 3.0 Inclu tabatha: PROPHYLAXIS for venous thrombosis, systemic embolization; TREATMENT for jace ous thrombosis and/or pulmonary embolus.HIGH RISK: Target INR is 2.5-3.5 for pat ients with mechanical heart valves.POCT-GLUCOSE [id number] 22:18:00* Test Item Value Reference Range Comments POC-GLUCOSE METER (BEAKER) (test npkn=4887) 203 mg/dL 70-110 TESTED AT [facility] [address] [facility] [address] POCT-GLUCOSE [id number] 16:47:00* Test Item Value Reference Range Comments POC-GLUCOSE METER (BEAKER) (test mxbw=8698) 164 mg/dL 70-110 TESTED AT [facility] [address] [facility] [address] [place], [id number] 11:58:00Referring: Dr. Francis Jeronimo Jr.Reason for Exam:->Ascites, Portal HypertensionFINAL REPORT Procedure: TIPS, 01/01/2008 HISTORY: Refractory ascites and hydrothorax Anesthesia: General Modality: Ultrasound and fluoroscopy, fluoroscopy time: 24.1 minutes, total dose: 945 mGy, reference air method Approach: Right internal jugular vein TECHNIQUE: After obtaining written informed consent, this procedure was performed without untoward effect. Right internal jugular vein was evaluated with ultrasound and found be patent. Images the patent vein were saved on PACS. Right internal jugular vein was accessed percutaneously and a catheter was advanced into the inferior vena cava. Subsequent, hepatic vein was catheterized and a sheath placed. A coaxial 16-gauge/21-gauge, Colapinto/Chiba needle complex was advanced in the liver. Two passes were made with a 21-gauge needle for entering the left portal vein. A catheter was then advanced centrally followed by portography. The main portal vein exhibits mild narrowing. There is retrograde flow down the inferior mesenteric vein. The tract through the liver was initially dilated with a 6 mm balloon catheter permitting placement of a 10 Palauan long sheath. A Viatorr 8 cm in length, up to 10 mm in diameter stent graft was placed with its distal portion in the main portal vein. The Viatorr was dilated to 8 mm in diameter but there was a residual 14 mm gradient. A 9 mm balloon was then used to dilate the stent graft reducing the portosystemic gradi ent to 7- 8 mm. The catheters were removed and hemostasis was obtained. CONCLUSI ON: Placement of TIPS. Signed: Celestine Landerosort Verified Date/Time: 12/31 11:58:08 Reading Location: [facility] P048 Angio Body Reading Room Electr onically signed by: CELESTINE LANDEROS M.D. on 12/31/2017 11:58 AM POCT-GLUCOSE [id number] 11:46:00* Test Item Value Reference Range Comments POC-GLUCOSE METER (BEAKER) (test alhe=6556) 136 mg/dL 70-110 TESTED AT [facility] [address] [facility] [address] COMPREHENSIVE METABOLIC [id number] 07:32:00* Test Item Value Reference Range Comments TOTAL PROTEIN (BEAKER) (test zyyg=961) 7.1 gm/dL 6.0-8.3 ALBUMIN (BEAKER) (test xrpy=6083) 3.7 g/dL 3.5-5.0 ALKALINE PHOSPHATASE (BEAKER) (test afaf=478) 78 U/L 40-150 BILIRUBIN TOTAL (BEAKER) (test tnbx=675) 0.8 mg/dL 0.2-1.2 SODIUM (BEAKER) (test bixe=726) 137 meq/L 136-145 POTASSIUM (BEAKER) (test btog=689) 3.7 meq/L 3.5-5.1 CHLORIDE (BEAKER) (test ahdq=997) 108 meq/L 98-107 CO2 (BEAKER) (test rhdw=563) 26 meq/L 22-29 BLOOD UREA NITROGEN (BEAKER) (test fayv=295) 12 mg/dL 7-21 CREATININE (BEAKER) (test yryg=692) 1.32 mg/dL 0.57-1.25 GLUCOSE RANDOM (BEAKER) (test lbmo=966) 109 mg/dL 70-105 CALCIUM (BEAKER) (test apvj=024) 9.0 mg/dL 8.4-10.2 AST (SGOT) (BEAKER) (test llpv=634) 35 U/L 5-34 ALT (SGPT) (BEAKER) (test nnqi=981) 17 U/L 6-55 EGFR (BEAKER) (test fiiw=7929) 55 mL/min/1.73 sq m ESTIMATED GFR IS NOT ACCURATE CREATININE CLEARANCE IN PREDICTING GLOMERULAR FILTRATION RATE. ESTIMATED GFR IS NOT APPLICABLE FOR DIALYSIS PATIENTS. PT/[id number] 07:09:00* Test Item Value Reference Range Comments PROTIME (BEAKER) (test hczt=788) 16.7 seconds 11.7-14.7 INR (BEAKER) (test glry=070) 1.4 <=5.9 PARTIAL THROMBOPLASTIN TIME (BEAKER) (test nlek=092) 28.9 seconds 22.5-36.0 RECOMMENDED COUMADIN/WARFARIN INR THERAPY RANGESSTANDARD DOSE: 2.0 - 3.0 Inclu tabatha: PROPHYLAXIS for venous thrombosis, systemic embolization; TREATMENT for jace ous thrombosis and/or pulmonary embolus.HIGH RISK: Target INR is 2.5-3.5 for pat ients with mechanical heart valves.CBC (HEMOGRAM ONLY)2017-12-31 07:03:00* Test Item Value Reference Range Comments WHITE BLOOD CELL COUNT (BEAKER) (test afrm=095) 2.2 K/ L 3.5-10.5 RED BLOOD CELL COUNT (BEAKER) (test zklp=632) 3.44 M/ L 4.63-6.08 HEMOGLOBIN (BEAKER) (test jguq=205) 10.2 GM/DL 13.7-17.5 HEMATOCRIT (BEAKER) (test mnkt=490) 33.1 % 40.1-51.0 MEAN CORPUSCULAR VOLUME (BEAKER) (test itug=262) 96.2 fL 79.0-92.2 MEAN CORPUSCULAR HEMOGLOBIN (BEAKER) (test dkmo=076) 29.7 pg 25.7-32.2 MEAN CORPUSCULAR HEMOGLOBIN CONC (BEAKER) (test fuhe=614) 30.8 GM/DL 32.3-36.5 RED CELL DISTRIBUTION WIDTH (BEAKER) (test mnuu=268) 16.2 % 11.6-14.4 PLATELET COUNT (BEAKER) (test eiio=262) 66 K/CU MM 150-450 MEAN PLATELET VOLUME (BEAKER) (test lorb=713) 10.1 fL 9.4-12.4 NUCLEATED RED BLOOD CELLS (BEAKER) (test aqfw=493) 0 /100 WBC 0-0 BLOOD [id number] 23:01:00* Test Item Value Reference Range Comments CULTURE (BEAKER) (test ujes=6284) No growth in 5 days BLOOD [id number] 23:01:00* Test Item Value Reference Range Comments CULTURE (BEAKER) (test vlzi=6280) No growth in 5 days RAD, CHEST, 2 [id number] 19:07:00Referring: Dr. Francis Jeronimo Jr.Reason for exam:->ABDOMINAL PAINReason for exam:->TREMORSFINAL REPORT Technique: 2 views of the chest COMPARISON: 11/19/2017 FINDINGS: There is a moderate right pleural effusion with nonspecific adjacent airspace disease. Lungs otherwise grossly clear. Cardiac silhouette is within normal limits. No acute skeletal abnormality. Signed: Ray Escobar MDReport Verified Date/Time: 12/24/2017 19:07:07 Reading Location: [facility] Mammo Reading Room , ABDOMEN 2017-12-24 17:52:00Referring: Dr. Francis Jeronimo Jr.FINAL REPORT DOSE REDUCTION: The examination was performed according to departmental dose-optimization program which includes automated exposure control, adjustment of the mA and/or kV according to patient size and/or use of iterative reconstruction technique. TECHNIQUE: CT of the abdomen and pelvis without intravenous contrast. Enteric contrast was not administered. COMPARISON: CT of the abdomen and pelvis, 11/16/2017 DISCUSSION: Limited study without intravenous contrast; detection of some masses, vascular pathology, and infecti ous/inflammatory process may be difficult. There is a partially depicted moder ate right pleural effusion. There is right lower lobe consolidation/atelectasis. Liver is nodular suggesting cirrhosis. Spleen is enlarged. Mild fatty infiltrat ion of the pancreas. Punctate nonobstructing bilateral renal stones are seen. A 1.2 cm right renal cyst is seen. Otherwise noncontrast appearance of the kidneys is unremarkable. Gallstones are suspected. No findings of cholecystitis. No bile duct dilatation. Large amount of stool throughout the colon. No evidence of co lonic obstruction. There are severe wall thickening involving the cecum and asce nding colon. Mild to moderate wall thickening elsewhere. The pattern is similar to CT from 11/16/2017. There are multifocal areas of small bowel dilatation of sm all bowel wall thickening. Degree of dilatation is decreased when compared to . A clear transition point within the small bowel is difficult to visuali ze. Some of the distal small bowel is decompressed. This probably represents mul tifocal enterocolitis, or sequela of ascites/hypoalbuminemia. A moderate partial small bowel obstruction cannot excluded. No bowel wall pneumatosis. No free ext raluminal air. Moderate amount of ascites with diffuse mesenteric edema and stra nding. No definite well-defined abscess. Upper abdominal and mesenteric lymph no tabatha are grossly stable. Aorta and IVC are normal in caliber. Upper abdominal jace ous collaterals are seen. Evaluation of the vasculature is limited without contr ast. The bladder, prostate and seminal vesicles are unremarkable. Right inguinal hernia containing fluid. There is soft tissue anasarca elsewhere. Degenerative changes along the spine. IMPRESSION: 1. Partially depicted moderate right pleura l effusion with right lower lobe consolidation. 2. Multifocal colonic and small bowel wall thickening with areas of small bowel dilatation. Findings are similar to the CT of 11/16/2017, although decreased in severity when compared to the pre vious exam. Appearance is nonspecific, this could represent multifocal enterocol itis, and/or partial small bowel obstruction. 3. Moderate amount of ascites. Sig donavan: Ray Escobar MDReport Verified Date/Time: 12/24/2017 17:52:09 Reading Locat ion: [facility] Mammo Reading Room [id number] 17:40:00* Test Item Value Reference Range Comments AMMONIA (BEAKER) (test vzok=012) 43 mol/L 18-72 [id number] 16:08:00* Test Item Value Reference Range Comments LIPASE (BEAKER) (test ojis=530) 20 U/L 8-78 [id number] 16:08:00* Test Item Value Reference Range Comments AMYLASE (BEAKER) (test rhks=730) 25 U/L 25-125 BASIC METABOLIC [id number] 16:08:00* Test Item Value Reference Range Comments SODIUM (BEAKER) (test rmtz=772) 137 meq/L 136-145 POTASSIUM (BEAKER) (test nsyc=657) 4.2 meq/L 3.5-5.1 CHLORIDE (BEAKER) (test euja=590) 108 meq/L 98-107 CO2 (BEAKER) (test qyav=377) 21 meq/L 22-29 BLOOD UREA NITROGEN (BEAKER) (test eykw=820) 13 mg/dL 7-21 CREATININE (BEAKER) (test aayd=005) 1.36 mg/dL 0.57-1.25 GLUCOSE RANDOM (BEAKER) (test ywht=038) 139 mg/dL 70-105 CALCIUM (BEAKER) (test geoz=376) 9.1 mg/dL 8.4-10.2 EGFR (BEAKER) (test lahx=5274) 53 mL/min/1.73 sq m ESTIMATED GFR IS NOT ACCURATE CREATININE CLEARANCE IN PREDICTING GLOMERULAR FILTRATION RATE. ESTIMATED GFR IS NOT APPLICABLE FOR DIALYSIS PATIENTS. HEPATIC FUNCTION [id number] 16:08:00* Test Item Value Reference Range Comments TOTAL PROTEIN (BEAKER) (test opcx=103) 6.9 gm/dL 6.0-8.3 ALBUMIN (BEAKER) (test rnge=1906) 3.5 g/dL 3.5-5.0 BILIRUBIN TOTAL (BEAKER) (test kuyq=227) 1.0 mg/dL 0.2-1.2 BILIRUBIN DIRECT (BEAKER) (test wpyg=086) 0.5 mg/dL 0.1-0.5 ALKALINE PHOSPHATASE (BEAKER) (test cvdo=471) 91 U/L 40-150 AST (SGOT) (BEAKER) (test zikq=477) 28 U/L 5-34 ALT (SGPT) (BEAKER) (test kqao=611) 13 U/L 6-55 CBC W/PLT COUNT & AUTO [id number] 15:42:00* Test Item Value Reference Range Comments WHITE BLOOD CELL COUNT (BEAKER) (test yqzb=331) 3.8 K/ L 3.5-10.5 RED BLOOD CELL COUNT (BEAKER) (test ngla=953) 3.38 M/ L 4.63-6.08 HEMOGLOBIN (BEAKER) (test dfim=644) 10.0 GM/DL 13.7-17.5 HEMATOCRIT (BEAKER) (test dyyn=879) 32.5 % 40.1-51.0 MEAN CORPUSCULAR VOLUME (BEAKER) (test tnbz=405) 96.2 fL 79.0-92.2 MEAN CORPUSCULAR HEMOGLOBIN (BEAKER) (test prjt=009) 29.6 pg 25.7-32.2 MEAN CORPUSCULAR HEMOGLOBIN CONC (BEAKER) (test betu=913) 30.8 GM/DL 32.3-36.5 RED CELL DISTRIBUTION WIDTH (BEAKER) (test lisn=115) 16.3 % 11.6-14.4 PLATELET COUNT (BEAKER) (test omng=222) 74 K/CU MM 150-450 MEAN PLATELET VOLUME (BEAKER) (test khva=562) 10.7 fL 9.4-12.4 NUCLEATED RED BLOOD CELLS (BEAKER) (test tcbg=864) 0 /100 WBC 0-0 NEUTROPHILS RELATIVE PERCENT (BEAKER) (test iaoj=923) 70 % LYMPHOCYTES RELATIVE PERCENT (BEAKER) (test djgd=303) 15 % MONOCYTES RELATIVE PERCENT (BEAKER) (test dkcd=692) 13 % EOSINOPHILS RELATIVE PERCENT (BEAKER) (test xppd=982) 1 % BASOPHILS RELATIVE PERCENT (BEAKER) (test fuot=114) 1 % NEUTROPHILS ABSOLUTE COUNT (BEAKER) (test xoid=872) 2.62 K/ L 1.78-5.38 LYMPHOCYTES ABSOLUTE COUNT (BEAKER) (test xnss=028) 0.56 K/ L 1.32-3.57 MONOCYTES ABSOLUTE COUNT (BEAKER) (test shht=775) 0.50 K/ L 0.30-0.82 EOSINOPHILS ABSOLUTE COUNT (BEAKER) (test fnji=184) 0.03 K/ L 0.04-0.54 BASOPHILS ABSOLUTE COUNT (BEAKER) (test myiw=755) 0.02 K/ L 0.01-0.08 IMMATURE GRANULOCYTES-RELATIVE PERCENT (BEAKER) (test bqaz=8149) 1 % 0-1 BLOOD GAS, [id number] 11:32:00* Test Item Value Reference Range Comments PH ARTERIAL (BEAKER) (test wmqp=838) 7.41 7.35-7.45 PCO2 ARTERIAL (BEAKER) (test oaeh=480) 35 mmHg 35-45 PO2 ARTERIAL (BEAKER) (test yitu=636) 89 mmHg 80-90 O2 SATURATION ARTERIAL (BEAKER) (test mdqv=950) 96.9 % 96.0-97.0 HCO3 ARTERIAL (BEAKER) (test vsja=227) 22 mmol/L 21-29 BASE EXCESS ARTERIAL (BEAKER) (test jucr=794) -2.3 mmol/L -2.0-3.0 PATIENT TEMPERATURE (BEAKER) (test sfle=9979) 37.0 C FIO2 (BEAKER) (test lryg=5215) 21.0 % MR, ABDOMEN, [id number] 10:31:00Referring: Dr. Francis Jeronimo Jr.FINAL REPORT MRI of the abdomen. CLINICAL HISTORY: Portal vein thrombosisscreen for HCC. COMPARISON STUDY: CT scan dated November 16, 2017 and MRI dated June 27, 2017. Technique: Multiplanar, multisequence imaging of the abdomen was acquired both pre and post administration of intravenous gadolinium in a dynamic fashion. No oral contrast was administered. FINDINGS: A moderate to large right-sided pleural effusion is seen. There is no left-sided effusion. The liver is nodular and cirrhotic in appearance. Post administration of intravenous gadolinium in a dynamic fashion, no suspicious enhancing masses are seen. A tiny cyst is seen in the peripheral portion of the medial segment of the left lobe. There is partial thrombosis of the portal vein proximally, as on previous. The more distal portal vein measures 9 mm. The degree of thrombus is similar. No SMV thrombosis seen. There is artifact from the patient's ascites which is mil m-yv-isvhgddi in nature. The pancreas, kidneys and adrenal glands are unremarkab le. Evidence of portal systemic shunting is seen with multiple dilated short gas tric veins. Retroperitoneal collaterals also seen with some prominence of the re troperitoneal soft tissue, stable. The spleen is enlarged measuring 17.4 cm in l ength. Aorta is normal in caliber. Retroperitoneal collaterals are seen. There a re prominent upper abdominal lymph nodes, as on previous. The visualized osseous structures demonstrate marrow conversion. IMPRESSION:1. Moderately large right- sided pleural effusion with adjacent atelectasis or consolidation, similar to pr evious.2. Gxyr-nc-cnfuujba ascites, also similar to previous.3. Nodular, cirrhot ic appearing liver with no suspicious masses. Evidence of portal hypertension wi th splenomegaly and portosystemic shunting.4. Partial thrombosis of the proximal portal vein, similar to previous. Signed: John Richardson MDReport Verified Deion e/Time: 12/12/2017 10:31:25 Reading Location: [facility] C013Y CT Body Reading Room -[id number] 09:16:00* Test Item Value Reference Range Comments POC-CREATININE (BEAKER) (test ecqg=2961) 0.9 mg/dL 0.6-1.3 TESTED AT [address] [address] POC-EGFR (BEAKER) (test vuqd=4197) 86 mL/min/1.73M2 MISCELLANEOUS LAB [id number] 10:40:00* Test Item Value Reference Range Comments SCAN RESULT (test ubse=[id number]) BODY FLUID CULTURE + GRAM [id number] 15:44:00* Test Item Value Reference Range Comments CULTURE (BEAKER) (test qpsf=8425) No growth GRAM STAIN RESULT (BEAKER) (test crzr=7741) 1+ WBCs GRAM STAIN RESULT (BEAKER) (test htkj=08602) No organisms seen BODY FLUID CULTURE + GRAM [id number] 15:44:00* Test Item Value Reference Range Comments CULTURE (BEAKER) (test cxfz=4241) No growth GRAM STAIN RESULT (BEAKER) (test iaff=9645) 1+ WBCs GRAM STAIN RESULT (BEAKER) (test acey=38349) No organisms seen POCT-GLUCOSE [id number] 13:22:00* Test Item Value Reference Range Comments POC-GLUCOSE METER (BEAKER) (test sbwi=1690) 122 mg/dL 70-110 TESTED AT [place] [id number] [facility] [id number] CYTOMEGALOVIRUS ANTIBODY, [id number] 13:10:00* Test Item Value Reference Range Comments CYTOMEGALOVIRUS, IGG (BEAKER) (test xzfn=7772) Positive Negative, Equivocal CMV IgG Result Interpretation: </=0.8 Al Negative 0.9-1.0 Al Equivocal >/=1.1 Al PositiveCYTOMEGALOVIRUS ANTIBODY, [id number] 13:10:00* Test Item Value Reference Range Comments CYTOMEGALOVIRUS IGM ANTIBODY (BEAKER) (test lsne=1434) Negative Negative, Equivocal CMV IgM Result Interpretation: </=0.8 Al Negative 0.9-1.0 Al Equivocal > /=1.1 Al PositiveEBV ANTIBODY, [id number] 13:10:00* Test Item Value Reference Range Comments DELFINO BALDWIN VIRAL CAPSID ANTIGEN IGG (BEAKER) (test eaze=6590) Positive Negative, Equivocal Delfino Baldwin Viral Capsid Antigen IgG Result Interpretation: </=0.8 Al Negative 0.9-1.0 Al Equivocal >/=1.1 Al PositiveEBV ANTIBODY, [id number] 13:10:00* Test Item Value Reference Range Comments DELFINO BALDWIN VIRAL CAPSID ANTIGEN IGM (BEAKER) (test qbva=8311) Negative Negative, Equivocal Delfino Baldwin Viral Capsid Antigen IgM Result Interpretation: </=0.8 Al Negative 0.9-1.0 Al Equivocal >/=1.1 Al PositivePOCT-GLUCOSE [id number] 07:46:00* Test Item Value Reference Range Comments POC-GLUCOSE METER (BEAKER) (test msar=8150) 187 mg/dL 70-110 TESTED AT [facility] [address] [facility] [address] [id number] 05:21:00* Test Item Value Reference Range Comments PHOSPHORUS (BEAKER) (test ytfz=240) 2.7 mg/dL 2.3-4.7 [id number] 05:21:00* Test Item Value Reference Range Comments MAGNESIUM (BEAKER) (test pcrm=052) 1.7 mg/dL 1.6-2.6 BASIC METABOLIC [id number] 05:21:00* Test Item Value Reference Range Comments SODIUM (BEAKER) (test iifd=931) 135 meq/L 136-145 POTASSIUM (BEAKER) (test kpnu=666) 3.8 meq/L 3.5-5.1 CHLORIDE (BEAKER) (test katv=215) 102 meq/L 98-107 CO2 (BEAKER) (test nhja=071) 28 meq/L 22-29 BLOOD UREA NITROGEN (BEAKER) (test eswv=482) 15 mg/dL 7-21 CREATININE (BEAKER) (test uyfr=952) 1.50 mg/dL 0.57-1.25 GLUCOSE RANDOM (BEAKER) (test wzmh=517) 137 mg/dL 70-105 CALCIUM (BEAKER) (test mnqy=462) 8.6 mg/dL 8.4-10.2 EGFR (BEAKER) (test hhzv=5741) 48 mL/min/1.73 sq m ESTIMATED GFR IS NOT ACCURATE CREATININE CLEARANCE IN PREDICTING GLOMERULAR FILTRATION RATE. ESTIMATED GFR IS NOT APPLICABLE FOR DIALYSIS PATIENTS. CBC W/PLT COUNT & AUTO [id number] 04:54:00* Test Item Value Reference Range Comments WHITE BLOOD CELL COUNT (BEAKER) (test qhzy=122) 2.1 K/ L 3.5-10.5 RED BLOOD CELL COUNT (BEAKER) (test iffj=878) 2.82 M/ L 4.63-6.08 HEMOGLOBIN (BEAKER) (test lomv=273) 8.4 GM/DL 13.7-17.5 HEMATOCRIT (BEAKER) (test thkl=217) 27.3 % 40.1-51.0 MEAN CORPUSCULAR VOLUME (BEAKER) (test jwzs=376) 96.8 fL 79.0-92.2 MEAN CORPUSCULAR HEMOGLOBIN (BEAKER) (test ohek=808) 29.8 pg 25.7-32.2 MEAN CORPUSCULAR HEMOGLOBIN CONC (BEAKER) (test zmbj=824) 30.8 GM/DL 32.3-36.5 RED CELL DISTRIBUTION WIDTH (BEAKER) (test eivk=508) 14.6 % 11.6-14.4 PLATELET COUNT (BEAKER) (test vycj=299) 85 K/CU MM 150-450 MEAN PLATELET VOLUME (BEAKER) (test aywr=341) 10.3 fL 9.4-12.4 NUCLEATED RED BLOOD CELLS (BEAKER) (test mali=315) 0 /100 WBC 0-0 NEUTROPHILS RELATIVE PERCENT (BEAKER) (test fydz=095) 65 % LYMPHOCYTES RELATIVE PERCENT (BEAKER) (test ymln=325) 21 % MONOCYTES RELATIVE PERCENT (BEAKER) (test ihhi=408) 11 % EOSINOPHILS RELATIVE PERCENT (BEAKER) (test vboy=609) 2 % BASOPHILS RELATIVE PERCENT (BEAKER) (test ydnu=921) 1 % NEUTROPHILS ABSOLUTE COUNT (BEAKER) (test azfg=711) 1.36 K/ L 1.78-5.38 LYMPHOCYTES ABSOLUTE COUNT (BEAKER) (test lrlq=305) 0.43 K/ L 1.32-3.57 MONOCYTES ABSOLUTE COUNT (BEAKER) (test joxu=824) 0.23 K/ L 0.30-0.82 EOSINOPHILS ABSOLUTE COUNT (BEAKER) (test dwjk=764) 0.04 K/ L 0.04-0.54 BASOPHILS ABSOLUTE COUNT (BEAKER) (test bmqe=391) 0.01 K/ L 0.01-0.08 IMMATURE GRANULOCYTES-RELATIVE PERCENT (BEAKER) (test xhxp=9101) 1 % 0-1 POCT-GLUCOSE [id number] 16:40:00* Test Item Value Reference Range Comments POC-GLUCOSE METER (BEAKER) (test hach=4880) 167 mg/dL 70-110 TESTED AT [address] [address] RAD, CHEST, 1 VIEW, NON [id number] 12:42:00Referring: Dr. Francis Jeronimo Jr.Reason for exam:->eval R pleural effusionShould this be performed at the bedside?->YesFINAL REPORT CLINICAL HISTORY: eval R pleural effusion TECHNIQUE: 1 view of the chest. COMPARISON: 11/18/2017 IMPRESSION: There are mildly increased right lung airspace opacities. A small right pleural effusion is unchanged. The left lung remains relatively well- aerated. The cardiomediastinal silhouette is within normal limits for size. Signed: Mariya Wiggins Verified Date/Time: 11/19/2017 12:42:26 Reading Location: [facility] Radiology Reading Room -GLUCOSE [id number] 12:14:00* Test Item Value Reference Range Comments POC-GLUCOSE METER (BEAKER) (test atgg=9303) 199 mg/dL 70-110 TESTED AT [address] [address] RAD, MANDIBLE, MIN 4 [id number] 10:36:00Referring: Dr. Francis Jeronimo Jr.Reason for exam:->liver transplant evalShould this be performed at the bedside?->YesFINAL REPORT CLINICAL HISTORY: liver transplant eval TECHNIQUE: Five views of the mandible COMPARISON: None IMPRESSION: The paranasal sinuses appear to be well-aerated. There is dental hardware, but the mandible is otherwise intact. Signed: Mariya Wiggins Verified Date/Time: 11/19/2017 10:36:00 Reading Location: [facility] Radiology Reading Room U/S, ABDOMINAL, WITH [id number] 09:44:00Referring: Dr. Francis Jeronimo Jr. Reason for exam:->evaluate presents of PVT (noted on MRI 06/2017)FINAL REPORT Ultrasound of the Abdomen and Doppler evaluation Clinical History: Evaluate presence of portal vein thrombosis Discussion: Sonographic evaluation of the abdomen is performed. In addition, color Doppler and spectral wave form analysis evaluations of the abdominal vasculature are performed. Liver: 12.6 cm in length at the right midclavicular line. Cirrhotic in morphology with markedly coarse in echotexture. No discrete mass is identified by ultrasound. Main portal vein diameter 1.5 cm. There is thrombus at the splenoportal confluence. Biliary tree: Common duct 6 mm. No biliary dilatation. Gallbladder: Contains multiple small shadowing calculi. Wall thickening is nonspecific. Negative sonographic Camacho's sign. Pancreas: Partially visualized, unremarkable. Ascites: Present. There is also a right pleural effusion. Spleen: 18.4 cm in length. Kidneys: Right kidney 10.8 x 5.2 x 5 cm. Left kidney 12.6 x 6.4 x 4.5 cm. Normal cortical echogenicity. No mass. In the left upper pole, there is a 3 mm shadowing stone. No hydronephrosis. IVC/Aorta: Segments partially seen. Unremarkable Doppler: The peak systolic velocity of the main portal vein is 31 cm/sec, slightly increased. There is thrombosis of the splenoportal confluence. The main portal, right portal, and left portal veins demonstrate normal direction of flow, hepatopetal. The splenic vein is visualized at the splenic hilum and demonstrates normal direction of flow, hepatopetal. The proper hepatic, right hepatic, and left hepatic arteries demonstrate normal arterial wave forms, resistive indices are mildly elevated, measuring 0.8. Segments of the right hepatic, middle hepatic, and left hepatic veins visualized demonstrate flow and phasic venous waveforms. Impression: Cirrhosis, splenomegaly, and ascites. Right pleural effusion. Thrombosis at the splenoportal confluence. Main, left and r ight portal veins are patent. Mildly elevated hepatic artery resistive indices, in keeping with liver parenchymal disease. Cholelithiasis. Nonspecific gallbladd er wall thickening. 3 mm nonobstructive stone at the upper pole of the left kidn ey. Signed: Farheen Venturaeport Verified Date/Time: 11/19/2017 09:44:31 Reading L ocation: [place] B1 P006J Ultrasound Reading Room IUM, [id number] 04:48:00* Test Item Value Reference Range Comments CALCIUM IONIZED (BEAKER) (test tddl=399) 1.09 mmol/L 1.12-1.27 PH, BLOOD (BEAKER) (test gmpj=5149) 7.50 [id number] 04:46:00* Test Item Value Reference Range Comments PHOSPHORUS (BEAKER) (test wmaq=400) 2.6 mg/dL 2.3-4.7 [id number] 04:46:00* Test Item Value Reference Range Comments MAGNESIUM (BEAKER) (test ybpe=787) 1.8 mg/dL 1.6-2.6 BASIC METABOLIC [id number] 04:46:00* Test Item Value Reference Range Comments SODIUM (BEAKER) (test nqmj=399) 139 meq/L 136-145 POTASSIUM (BEAKER) (test zhvk=007) 3.7 meq/L 3.5-5.1 CHLORIDE (BEAKER) (test srml=414) 105 meq/L 98-107 CO2 (BEAKER) (test tlek=119) 26 meq/L 22-29 BLOOD UREA NITROGEN (BEAKER) (test cdbc=416) 14 mg/dL 7-21 CREATININE (BEAKER) (test teau=186) 1.57 mg/dL 0.57-1.25 GLUCOSE RANDOM (BEAKER) (test mzfl=472) 115 mg/dL 70-105 CALCIUM (BEAKER) (test iyqm=661) 9.1 mg/dL 8.4-10.2 EGFR (BEAKER) (test blud=3783) 45 mL/min/1.73 sq m ESTIMATED GFR IS NOT ACCURATE CREATININE CLEARANCE IN PREDICTING GLOMERULAR FILTRATION RATE. ESTIMATED GFR IS NOT APPLICABLE FOR DIALYSIS PATIENTS. HEPATIC FUNCTION [id number] 04:46:00* Test Item Value Reference Range Comments TOTAL PROTEIN (BEAKER) (test vdvj=090) 6.2 gm/dL 6.0-8.3 ALBUMIN (BEAKER) (test qvux=0560) 3.6 g/dL 3.5-5.0 BILIRUBIN TOTAL (BEAKER) (test rxrv=636) 0.6 mg/dL 0.2-1.2 BILIRUBIN DIRECT (BEAKER) (test pzep=312) 0.3 mg/dL 0.1-0.5 ALKALINE PHOSPHATASE (BEAKER) (test wzsi=149) 54 U/L 40-150 AST (SGOT) (BEAKER) (test bruk=855) 15 U/L 5-34 ALT (SGPT) (BEAKER) (test rbak=038) 8 U/L 6-55 [id number] 04:35:00* Test Item Value Reference Range Comments PARTIAL THROMBOPLASTIN TIME (BEAKER) (test jsgs=406) 36.4 seconds 22.5-36.0 PROTHROMBIN TIME/[id number] 04:33:00* Test Item Value Reference Range Comments PROTIME (BEAKER) (test hzsz=404) 18.2 seconds 11.7-14.7 INR (BEAKER) (test yfyg=996) 1.5 <=5.9 RECOMMENDED COUMADIN/WARFARIN INR THERAPY RANGESSTANDARD DOSE: 2.0 - 3.0 Inclu tabatha: PROPHYLAXIS for venous thrombosis, systemic embolization; TREATMENT for jace ous thrombosis and/or pulmonary embolus.HIGH RISK: Target INR is 2.5-3.5 for pat ients with mechanical heart valves.CBC (HEMOGRAM ONLY)2017-11-19 04:27:00* Test Item Value Reference Range Comments WHITE BLOOD CELL COUNT (BEAKER) (test mvcd=826) 1.9 K/ L 3.5-10.5 RED BLOOD CELL COUNT (BEAKER) (test cjus=055) 2.95 M/ L 4.63-6.08 HEMOGLOBIN (BEAKER) (test bytf=351) 8.7 GM/DL 13.7-17.5 HEMATOCRIT (BEAKER) (test qhqq=392) 28.5 % 40.1-51.0 MEAN CORPUSCULAR VOLUME (BEAKER) (test avwr=287) 96.6 fL 79.0-92.2 MEAN CORPUSCULAR HEMOGLOBIN (BEAKER) (test jtol=975) 29.5 pg 25.7-32.2 MEAN CORPUSCULAR HEMOGLOBIN CONC (BEAKER) (test lzqk=180) 30.5 GM/DL 32.3-36.5 RED CELL DISTRIBUTION WIDTH (BEAKER) (test qxou=447) 14.8 % 11.6-14.4 PLATELET COUNT (BEAKER) (test ixog=507) 86 K/CU MM 150-450 MEAN PLATELET VOLUME (BEAKER) (test ejyk=449) 9.9 fL 9.4-12.4 NUCLEATED RED BLOOD CELLS (BEAKER) (test mpnv=607) 0 /100 WBC 0-0 CRYPTOCOCCAL [id number] 02:15:00* Test Item Value Reference Range Comments CRYPTOCOCCAL ANTIGEN, SERUM (BEAKER) (test ytut=9317) Negative Negative, Interference [id number] 02:11:00* Test Item Value Reference Range Comments RPR SCREEN (BEAKER) (test wmct=705) Nonreactive Nonreactive POCT-GLUCOSE [id number] 23:18:00* Test Item Value Reference Range Comments POC-GLUCOSE METER (BEAKER) (test rygx=8762) 184 mg/dL 70-110 TESTED AT [facility] [address] [facility] [address] EOSINOPHIL SMEAR, [id number] 22:28:00* Test Item Value Reference Range Comments EOSINOPHIL SMEAR, URINE (BEAKER) (test glkr=3545) No EOS seen No EOS seen URINALYSIS W/ [id number] 22:18:00* Test Item Value Reference Range Comments COLOR (BEAKER) (test hehs=859) Yellow CLARITY (BEAKER) (test jdpa=953) Clear SPECIFIC GRAVITY UA (BEAKER) (test rzpk=489) 1.033 1.001-1.035 PH UA (BEAKER) (test bmkx=032) 6.0 5.0-8.0 PROTEIN UA (BEAKER) (test dkur=397) 10 mg/dL Negative GLUCOSE UA (BEAKER) (test ufis=350) Negative Negative KETONES UA (BEAKER) (test arzc=453) Negative Negative BILIRUBIN UA (BEAKER) (test jqui=936) Negative Negative BLOOD UA (BEAKER) (test zahm=815) Negative Negative NITRITE UA (BEAKER) (test lacv=312) Negative Negative LEUKOCYTE ESTERASE UA (BEAKER) (test hcco=819) Negative Negative UROBILINOGEN UA (BEAKER) (test xkxq=223) 0.2 mg/dL 0.2-1.0 RBC UA (BEAKER) (test bseh=667) 3 /HPF WBC UA (BEAKER) (test fuog=493) 2 /HPF SOURCE(BEAKER) (test xdnn=0618) Urine, Voided HIV-1 ANTIGEN WITH HIV-1/2 [id number] 21:16:00* Test Item Value Reference Range Comments HIV-1 ANTIGEN WITH HIV 1\T\2 ANTIBODY (2) (BEAKER) (test fcpj=7717) Nonreactive Nonreactive This screening test for HIV antigen/antibodies may give false positive results. All reactive specimens are submitted for confirmatory testing, the results of wh ich will be reported separately. Only a reactive HIV antigen/antibody test in co njunction with a positive confirmatory test indicates HIV infection.HEMOGLOBIN [id number] 20:31:00* Test Item Value Reference Range Comments HEMOGLOBIN A1C (BEAKER) (test texn=086) 5.3 % 4.3-6.1 [id number] 19:41:00* Test Item Value Reference Range Comments PROSTATE SPECIFIC ANTIGEN (BEAKER) (test mwno=612) 0.4 ng/mL 0.0-4.0 [id number] 19:26:00* Test Item Value Reference Range Comments T4 TOTAL (BEAKER) (test fggm=039) 4.6 ug/dL 4.9-11.7 [id number] 19:26:00* Test Item Value Reference Range Comments T3 TOTAL (BEAKER) (test bcys=993) 50 ng/dL 48-159 CARCINOEMBRYONIC ANTIGEN (CEA)2017-11-18 19:26:00* Test Item Value Reference Range Comments CARCINOEMBRYONIC ANTIGEN (BEAKER) (test hncr=864) 6.1 ng/mL 0.0-5.0 VITAMIN D, [id number] 19:26:00* Test Item Value Reference Range Comments VITAMIN D 25-OH (BEAKER) (test itpi=0558) 24.6 ng/mL 6.6-49.9 Effective 12/05/2016: Reference Range ChangeNew: 6.6-49.9 ng/mL Previous: 13.0 -47.8 ng/mLRecommended Vitamin D Target Range: 30.0-40.0 ng/[id number] 19:12:00* Test Item Value Reference Range Comments ACTIVATED CLOTTING TIME (BEAKER) (test gcpr=376) 158 sec TESTED AT [facility] [address] [facility] [address] [id number] 19:07:00* Test Item Value Reference Range Comments TRANSFERRIN (BEAKER) (test fesq=807) 114 mg/dL 174-382 URIC [id number] 18:43:00* Test Item Value Reference Range Comments URIC ACID (BEAKER) (test arpy=609) 10.3 mg/dL 2.6-7.2 LIPID [id number] 18:43:00* Test Item Value Reference Range Comments TRIGLYCERIDES (BEAKER) (test hvas=322) 48 mg/dL CHOLESTEROL (BEAKER) (test pvqr=333) 95 mg/dL HDL CHOLESTEROL (BEAKER) (test tkbe=051) 23 mg/dL LDL CHOLESTEROL CALCULATED (BEAKER) (test kkeu=460) 62 mg/dL Triglyceride Reference Range: Low Risk <150 Borderline 150-199 High Risk 200-499 Very High Risk >=500Cholesterol Reference Range: Low Risk <200 Borderline 200-239 High Risk >240HDL Cholesterol Reference Range: Low Risk >=60 High Risk <40LDL Cholesterol Reference Range: Optimal <100 Near Optimal 100-129 Borderline 130-159 High 160-189 Very High >=190 GAMMA GLUTAMYL TRANSFERASE (GGT)2017-11-18 18:43:00* Test Item Value Reference Range Comments GAMMA GLUTAMYL TRANSFERASE (BEAKER) (test abmt=905) 23 U/L 9-64 [id number] 18:40:00* Test Item Value Reference Range Comments ETHANOL (BEAKER) (test syna=313) < mg/dL <=10 [id number] 18:39:00* Test Item Value Reference Range Comments FIBRINOGEN LEVEL (BEAKER) (test wxuo=541) 178 mg/dl 225-434 [id number] 18:35:00* Test Item Value Reference Range Comments ACTIVATED CLOTTING TIME (BEAKER) (test kveo=399) 175 sec TESTED AT [place] [address] [id number] 17:17:00* Test Item Value Reference Range Comments ACTIVATED CLOTTING TIME (BEAKER) (test zfhu=528) 208 sec TESTED AT [place] [address] [id number] 15:51:00* Test Item Value Reference Range Comments ACTIVATED CLOTTING TIME (BEAKER) (test lxda=189) 191 sec TESTED AT [place] [address] [id number] 15:39:00* Test Item Value Reference Range Comments ACTIVATED CLOTTING TIME (BEAKER) (test trec=616) 175 sec TESTED AT [place] [address] POCT-GLUCOSE [id number] 12:27:00* Test Item Value Reference Range Comments POC-GLUCOSE METER (BEAKER) (test ikwq=2140) 198 mg/dL 70-110 TESTED AT [place] [address] LACTATE DEHYDROGENASE (LDH)2017-11-18 10:49:00* Test Item Value Reference Range Comments LACTATE DEHYDROGENASE (BEAKER) (test mnyx=490) 135 U/L 125-220 CBC W/PLT COUNT & AUTO [id number] 08:55:00* Test Item Value Reference Range Comments WHITE BLOOD CELL COUNT (BEAKER) (test fisz=758) 1.7 K/ L 3.5-10.5 RED BLOOD CELL COUNT (BEAKER) (test fcul=805) 2.74 M/ L 4.63-6.08 HEMOGLOBIN (BEAKER) (test pefh=448) 8.1 GM/DL 13.7-17.5 HEMATOCRIT (BEAKER) (test bena=949) 26.3 % 40.1-51.0 MEAN CORPUSCULAR VOLUME (BEAKER) (test oerk=088) 96.0 fL 79.0-92.2 MEAN CORPUSCULAR HEMOGLOBIN (BEAKER) (test gkvt=098) 29.6 pg 25.7-32.2 MEAN CORPUSCULAR HEMOGLOBIN CONC (BEAKER) (test ekor=203) 30.8 GM/DL 32.3-36.5 RED CELL DISTRIBUTION WIDTH (BEAKER) (test eeob=365) 14.7 % 11.6-14.4 PLATELET COUNT (BEAKER) (test lavf=180) 75 K/CU MM 150-450 MEAN PLATELET VOLUME (BEAKER) (test gjbo=974) 10.0 fL 9.4-12.4 NUCLEATED RED BLOOD CELLS (BEAKER) (test qrcm=296) 0 /100 WBC 0-0 (CELLAVISION MANUAL DIFF)2017-11-18 08:55:00* Test Item Value Reference Range Comments NEUTROPHILS - REL (CELLAVISION)(BEAKER) (test samu=9178) 74 % LYMPHOCYTES - REL (CELLAVISION)(BEAKER) (test uutw=2402) 14 % MONOCYTES - REL (CELLAVISION)(BEAKER) (test lbqt=7603) 9 % EOSINOPHILS - REL (CELLAVISION)(BEAKER) (test waav=8740) 2 % BLASTS - REL (CELLAVISION)(BEAKER) (test maxw=3020) 1 % 0-0 NEUTROPHILS - ABS (CELLAVISION)(BEAKER) (test wsoi=5425) 1.26 K/ul 1.78-5.38 LYMPHOCYTES - ABS (CELLAVISION)(BEAKER) (test lxpi=5310) 0.24 K/ul 1.32-3.57 MONOCYTES - ABS (CELLAVISION)(BEAKER) (test fjha=8315) 0.15 K/uL 0.30-0.82 EOSINOPHILS - ABS (CELLAVISION)(BEAKER) (test gycr=4777) 0.03 K/uL 0.04-0.54 BLASTS - ABS (CELLAVISION)(BEAKER) (test mrut=9461) 0.02 K/uL 0.00-0.00 TOTAL COUNTED (BEAKER) (test mexf=5877) 100 SMUDGE CELLS (BEAKER) (test bjbl=7387) Present GIANT PLATELETS (BEAKER) (test blxg=225) Present ANISOCYTOSIS (BEAKER) (test lgby=497) 1+ few POIKILOCYTES (BEAKER) (test zbfu=580) 1+ few OVALOCYTES (BEAKER) (test ogzz=127) 1+ few TEAR DROP CELLS (BEAKER) (test skbd=561) 1+ few STOMATOCYTES (BEAKER) (test lpch=788) 1+ few ARTIFACT (CELLAVISION)(BEAKER) (test nuzz=5284) Present PLATELET CONCENTRATION (CELLAVISION)(BEAKER) (test hclb=5826) Decreased Received comment: User comments: Slide comments: POCT-GLUCOSE [id number] 08:33:00* Test Item Value Reference Range Comments POC-GLUCOSE METER (BEAKER) (test fjam=4000) 101 mg/dL 70-110 TESTED AT [facility] [address] [facility] [address] RAD, CHEST, 1 VIEW, NON [id number] 08:03:00Referring: Dr. Francis Jeronimo Jr.Reason for exam:->upright, eval pleural effusionShould this be performed at the bedside?->YesFINAL REPORT CHEST AP PORTABLE Comparison exam: 11/17/2017 History provided: Pleural effusion evaluation 1200 cc right thoracentesis was performed yesterday. There is a small amount of residual effusion on the right. The lungs are otherwise clear and heart size and vascularity normal. IMPRESSION: Small residual right pleural effusion is stable. Signed: Shaye Monsivais MDReport Verified Date/Time: 11/18/2017 08:03:02 Reading Location: [facility] Diagnostic Imaging Reading Room - [facility] 1310.12 PHORUS 2017-11-18 05:58:00* Test Item Value Reference Range Comments PHOSPHORUS (BEAKER) (test akpe=116) 2.3 mg/dL 2.3-4.7 [id number] 05:58:00* Test Item Value Reference Range Comments MAGNESIUM (BEAKER) (test tckf=423) 1.8 mg/dL 1.6-2.6 HEPATIC FUNCTION [id number] 05:58:00* Test Item Value Reference Range Comments TOTAL PROTEIN (BEAKER) (test xrzx=066) 6.3 gm/dL 6.0-8.3 ALBUMIN (BEAKER) (test bvcm=4205) 3.8 g/dL 3.5-5.0 BILIRUBIN TOTAL (BEAKER) (test oeib=339) 0.9 mg/dL 0.2-1.2 BILIRUBIN DIRECT (BEAKER) (test pwui=188) 0.5 mg/dL 0.1-0.5 ALKALINE PHOSPHATASE (BEAKER) (test xbxy=599) 51 U/L 40-150 AST (SGOT) (BEAKER) (test mswo=387) 15 U/L 5-34 ALT (SGPT) (BEAKER) (test xmng=778) 8 U/L 6-55 COMPREHENSIVE METABOLIC [id number] 05:58:00* Test Item Value Reference Range Comments TOTAL PROTEIN (BEAKER) (test bjta=925) 6.3 gm/dL 6.0-8.3 ALBUMIN (BEAKER) (test urux=0380) 3.8 g/dL 3.5-5.0 ALKALINE PHOSPHATASE (BEAKER) (test xcxg=384) 51 U/L 40-150 BILIRUBIN TOTAL (BEAKER) (test uttm=285) 0.9 mg/dL 0.2-1.2 SODIUM (BEAKER) (test hzvi=804) 141 meq/L 136-145 POTASSIUM (BEAKER) (test gdxz=367) 3.4 meq/L 3.5-5.1 CHLORIDE (BEAKER) (test lhnn=092) 103 meq/L 98-107 CO2 (BEAKER) (test aktd=165) 29 meq/L 22-29 BLOOD UREA NITROGEN (BEAKER) (test npig=798) 14 mg/dL 7-21 CREATININE (BEAKER) (test tmhx=962) 1.38 mg/dL 0.57-1.25 GLUCOSE RANDOM (BEAKER) (test tcju=246) 92 mg/dL 70-105 CALCIUM (BEAKER) (test fixz=626) 9.7 mg/dL 8.4-10.2 AST (SGOT) (BEAKER) (test hgqe=387) 15 U/L 5-34 ALT (SGPT) (BEAKER) (test jmuo=883) 8 U/L 6-55 EGFR (BEAKER) (test ljpy=7485) 52 mL/min/1.73 sq m ESTIMATED GFR IS NOT ACCURATE CREATININE CLEARANCE IN PREDICTING GLOMERULAR FILTRATION RATE. ESTIMATED GFR IS NOT APPLICABLE FOR DIALYSIS PATIENTS. PROTHROMBIN TIME/[id number] 05:49:00* Test Item Value Reference Range Comments PROTIME (BEAKER) (test muob=539) 19.0 seconds 11.7-14.7 INR (BEAKER) (test spng=088) 1.6 <=5.9 RECOMMENDED COUMADIN/WARFARIN INR THERAPY RANGESSTANDARD DOSE: 2.0 - 3.0 Inclu tabatha: PROPHYLAXIS for venous thrombosis, systemic embolization; TREATMENT for jace ous thrombosis and/or pulmonary embolus.HIGH RISK: Target INR is 2.5-3.5 for pat ients with mechanical heart valves.CALCIUM, [id number] 04:08:00* Test Item Value Reference Range Comments CALCIUM IONIZED (BEAKER) (test etpo=528) 1.14 mmol/L 1.12-1.27 PH, BLOOD (BEAKER) (test vqom=7795) 7.48 POCT-GLUCOSE [id number] 23:37:00* Test Item Value Reference Range Comments POC-GLUCOSE METER (BEAKER) (test zfjv=2718) 131 mg/dL 70-110 TESTED AT [facility] [address] [facility] [address] SODIUM, RANDOM [id number] 22:22:00* Test Item Value Reference Range Comments SODIUM URINE (BEAKER) (test blwl=034) 21 meq/L Reference Range: No NormalsCREATININE, RANDOM [id number] 22:20:00* Test Item Value Reference Range Comments CREATININE URINE (BEAKER) (test iaxd=019) 129.1 mg/dL Reference Range: No NormalsPROTEIN, RANDOM [id number] 22:20:00* Test Item Value Reference Range Comments PROTEIN, URINE (BEAKER) (test mvad=9314) 11 mg/dL 0-14 BODY FLUID CELL COUNT WITH [id number] 17:26:00* Test Item Value Reference Range Comments APPEARANCE FLUID (BEAKER) (test bhmw=401) Slightly Hazy Clear COLOR FLUID (BEAKER) (test yszq=985) Straw Colorless, Straw RBC FLUID (BEAKER) (test ygwh=777) 140 /cu mm <=1 ADJUSTED WBC FLUID (BEAKER) (test gmkd=4109) 150 /cu mm <=5 LINING CELLS (BEAKER) (test iokr=1549) 5 /cu mm <=1 NEUTROPHILS FLUID (BEAKER) (test dagi=8617) 11 % LYMPHS FLUID (BEAKER) (test xdhe=037) 23 % MONO/MACROPHAGE FLUID (BEAKER) (test mupg=842) 66 % EOSINOPHILS FLUID (BEAKER) (test edfn=032) 0 % BASO FLUID (BEAKER) (test zokg=335) 0 % CONTAINER BODY FLUID (BEAKER) (test ymvx=4984) EDTA Tube BODY FLUID CELL COUNT WITH [id number] 16:50:00* Test Item Value Reference Range Comments APPEARANCE FLUID (BEAKER) (test fjwb=241) Slightly Hazy Clear COLOR FLUID (BEAKER) (test ohyv=574) Straw Colorless, Straw RBC FLUID (BEAKER) (test eyvp=451) 960 /cu mm <=1 ADJUSTED WBC FLUID (BEAKER) (test pkkw=2818) 239 /cu mm <=5 LINING CELLS (BEAKER) (test hgxp=6663) 21 /cu mm <=1 NEUTROPHILS FLUID (BEAKER) (test ttze=2455) 10 % LYMPHS FLUID (BEAKER) (test sesj=465) 11 % MONO/MACROPHAGE FLUID (BEAKER) (test ysua=205) 79 % EOSINOPHILS FLUID (BEAKER) (test gdgs=436) 0 % BASO FLUID (BEAKER) (test rfhc=446) 0 % CONTAINER BODY FLUID (BEAKER) (test lcnd=6066) EDTA Tube ALBUMIN, BODY [id number] 15:23:00* Test Item Value Reference Range Comments ALBUMIN FLUID (BEAKER) (test qnuc=186) 1.1 gm/dL Reference Range: No Normals Assay performance has not been validated for this type of specimen.PROTEIN, BODY [id number] 15:05:00* Test Item Value Reference Range Comments PROTEIN FLUID (BEAKER) (test svqj=520) 1.8 g/dL Absence of reference range indicates that normals have not been defined.Assay pe rformance has not been validated for this type of specimen.POCT-GLUCOSE METER 2017-11-17 14:55:00* Test Item Value Reference Range Comments POC-GLUCOSE METER (BEAKER) (test mvak=1239) 127 mg/dL 70-110 TESTED AT [facility] [address] [facility] [address] LACTATE DEHYDROGENASE (LDH), BODY [id number] 14:37:00* Test Item Value Reference Range Comments LACTATE DEHYDROGENASE FLUID (BEAKER) (test uvgo=897) < U/L Light's criteria identifies effusions if one or more are pre Absence of reference range indicates that normals have not been defined.Assay pe rformance has not been validated for this type of specimen.PROTEIN, BODY FLUID 2017-11-17 14:37:00* Test Item Value Reference Range Comments PROTEIN FLUID (BEAKER) (test hulm=246) 2.6 g/dL Light's criteria identifies effusions if one or more are pre Absence of reference range indicates that normals have not been defined.Assay pe rformance has not been validated for this type of specimen.RAD, CHEST, 1 VIEW, NON [id number] 13:22:00Referring: Dr. Francis Jeronimo Jr.Reason for exam:- >post right thoracentesisReason for exam:->us room 1FINAL REPORT Chest, 1 view Clinical history: post right thoracentesisus room 1 Comparison: Same date Discussion: There has been interval decrease in right pleural effusion. No definite pneumothorax is seen. There is bibasilar atelectasis. The cardiac silhouette is magnified by portable technique. No acute osseous abnormality. Signed: Chung Mclean MDReport Verified Date/Time: 11/17/2017 13:22:54 Reading Location: [address] Ortho Consult Reading Room U/S, [id number] 13:21:00Referring: Dr. Francis Jeronimo Jr.Laterality?- >RightReason for exam:->fluid, pleural effusionFINAL REPORT Ultrasound guided right thoracentesis: Pre/post procedure diagnosis: Pleural effusion Approach: Right Posterior Lateral Intercostal Sedation: None Local Anesthesia: 1% Xylocaine Findings: The risks, benefits, and alternatives of the procedure were explained. Questions were answered, and informed, written consent was then obtained. After an appropriate site for drainage was found, the skin was prepped and draped, and local anesthesia was given. A 5 F multipurpose catheter was inserted into the right pleural space, and approximately 1200 cc of clear yellow pleural fluid was aspirated. Specimen were collected for the lab. No immediate complications were noted. A post-procedure chest radiograph is pending. Estimated blood loss: None. Impression: Uncomplicated ultrasound-guided right thoracentesis Signed: Chung Mclean Verified Date/Time: 11/17/2017 13:21:46 Reading Location: [place] [address] Ortho Consult Reading Room U/S, [id number] 12:58:00Referring: Dr. Francis Jeronimo Jr.Reason for exam:->ABDOMINAL PAINFINAL REPORT Procedure: Ultrasound Guided Paracentesis: Pre procedure Diagnosis: Ascites Post procedure Diagnosis: Same Sedation: None Local anesthesia: 1% Xylocaine. Description/findings: The risks, benefits, and alternatives of the procedure were explained. Questions were answered, and informed, written consent was then obtained. The right lower quadrant was prepped and draped and local anesthesia given. A 5 F paracentesis catheter was inserted into the peritoneal space and 3700 cc of clear yellow ascites was aspirated. Specimen were collected for the lab. No immediate complications were noted. Estimated blood loss: none. Impression: Uncomplicated ultrasound-guided paracentesis Signed: Chung Mclean Verified Date/Time: 11/17/2017 12:58:55 Reading Location: [place] [address] Ortho Consult Reading Room , CHEST, 1 VIEW, NON [id number] 09:17:00Referring: Dr. Francis Jeronimo Jr.Reason for exam:->pleural effusionShould this be performed at the bedside?-> YesFINAL REPORT CHEST ONE VIEW HISTORY: Pleural effusion COMPARISON: 10/25/2017 FINDINGS: Single portable AP examination of the chest was performed. Small to moderate right pleural effusion, likely increased since 10/25/2017. There is mild vascular congestion. No left pleural effusion. No pneumothorax. Cardiac shadow normal in size. Nasogastric tube passes below the diaphragm, with the tip not imaged. Signed: Mita Mata Verified Date/Time: 11/17/2017 09:17:19 Reading Location: [place] [address] Transitional Reading Room [id number] 07:01:00* Test Item Value Reference Range Comments MAGNESIUM (BEAKER) (test ykcc=348) 1.5 mg/dL 1.6-2.6 BASIC METABOLIC [id number] 07:01:00* Test Item Value Reference Range Comments SODIUM (BEAKER) (test gnhz=465) 140 meq/L 136-145 POTASSIUM (BEAKER) (test jsvo=952) 4.6 meq/L 3.5-5.1 CHLORIDE (BEAKER) (test vczw=327) 103 meq/L 98-107 CO2 (BEAKER) (test onzn=729) 29 meq/L 22-29 BLOOD UREA NITROGEN (BEAKER) (test igna=082) 17 mg/dL 7-21 CREATININE (BEAKER) (test dara=721) 1.43 mg/dL 0.57-1.25 GLUCOSE RANDOM (BEAKER) (test ervb=880) 112 mg/dL 70-105 CALCIUM (BEAKER) (test cmho=051) 10.0 mg/dL 8.4-10.2 EGFR (BEAKER) (test nbcs=9369) 50 mL/min/1.73 sq m ESTIMATED GFR IS NOT ACCURATE CREATININE CLEARANCE IN PREDICTING GLOMERULAR FILTRATION RATE. ESTIMATED GFR IS NOT APPLICABLE FOR DIALYSIS PATIENTS. HEPATIC FUNCTION [id number] 07:01:00* Test Item Value Reference Range Comments TOTAL PROTEIN (BEAKER) (test ubzf=302) 6.5 gm/dL 6.0-8.3 ALBUMIN (BEAKER) (test pcfs=6859) 3.5 g/dL 3.5-5.0 BILIRUBIN TOTAL (BEAKER) (test wpni=253) 0.7 mg/dL 0.2-1.2 BILIRUBIN DIRECT (BEAKER) (test jpug=935) 0.4 mg/dL 0.1-0.5 ALKALINE PHOSPHATASE (BEAKER) (test upkv=566) 63 U/L 40-150 AST (SGOT) (BEAKER) (test eccs=704) 18 U/L 5-34 ALT (SGPT) (BEAKER) (test sgzc=478) 9 U/L 6-55 PROTHROMBIN [id number] 06:41:00* Test Item Value Reference Range Comments PROTIME (BEAKER) (test lpev=884) 17.2 seconds 11.7-14.7 INR (BEAKER) (test suto=673) 1.4 <=5.9 RECOMMENDED COUMADIN/WARFARIN INR THERAPY RANGESSTANDARD DOSE: 2.0 - 3.0 Inclu tabatha: PROPHYLAXIS for venous thrombosis, systemic embolization; TREATMENT for jace ous thrombosis and/or pulmonary embolus.HIGH RISK: Target INR is 2.5-3.5 for pat ients with mechanical heart valves.CBC (HEMOGRAM ONLY)2017-11-17 06:34:00* Test Item Value Reference Range Comments WHITE BLOOD CELL COUNT (BEAKER) (test pjei=630) 1.9 K/ L 3.5-10.5 RED BLOOD CELL COUNT (BEAKER) (test qtxp=476) 2.98 M/ L 4.63-6.08 HEMOGLOBIN (BEAKER) (test fdmu=983) 9.0 GM/DL 13.7-17.5 HEMATOCRIT (BEAKER) (test sxzo=251) 28.7 % 40.1-51.0 MEAN CORPUSCULAR VOLUME (BEAKER) (test cqfp=153) 96.3 fL 79.0-92.2 MEAN CORPUSCULAR HEMOGLOBIN (BEAKER) (test dljd=151) 30.2 pg 25.7-32.2 MEAN CORPUSCULAR HEMOGLOBIN CONC (BEAKER) (test oxzc=723) 31.4 GM/DL 32.3-36.5 RED CELL DISTRIBUTION WIDTH (BEAKER) (test oazo=192) 15.0 % 11.6-14.4 PLATELET COUNT (BEAKER) (test laiz=430) 72 K/CU MM 150-450 MEAN PLATELET VOLUME (BEAKER) (test pnxx=790) 10.7 fL 9.4-12.4 NUCLEATED RED BLOOD CELLS (BEAKER) (test taqc=886) 0 /100 WBC 0-0 POCT-GLUCOSE [id number] 06:24:00* Test Item Value Reference Range Comments POC-GLUCOSE METER (BEAKER) (test fhdm=8477) 123 mg/dL 70-110 TESTED AT [facility] [address] [facility] [address] [place], [id number] 21:36:00Referring: Dr. Francis Jeronimo Jr.Reason for exam:->abdominal painWhat is the patient's sedation requirement?->No Sedation FINAL REPORT CLINICAL HISTORY: Acute abdominal pain, con cern for bowel obstruction FINDINGS: Multiple axial images of the abdomen and pe lvis were performed without intravenous contrast. Oral contrast was not given. T his exam was performed according to our departmental dose-optimization program, which includes automated exposure control, adjustment of the mA and/or kV accord ing to patient size and/or use of the iterative reconstruction technique. Compar jacinta:None. Lower chest: Moderate to large right pleural effusion, partially visu alized. Adjacent atelectasis versus pneumonitis. Visualized cardiac contours nor mal. Liver: Small nodular liver, consistent with cirrhosis Gallbladder and bilia ry tree: Cholelithiasis Spleen: Splenomegaly, measuring at least 17 cm in cranio caudal dimension Adrenal Glands: No significant findings. Kidneys and ureters: S everal punctate nonobstructing left kidney stones. Punctate nonobstructing right kidney stone. No ureteral stone or noncontrast CT evidence of obstructive uropa thy. Stomach and Duodenum: Distended with fluid Pancreas: Atrophic Bowel: Multip le dilated small bowel loops in the midabdomen. No definite transition point. St ool and gas is present in normal caliber large intestine. No pneumatosis intesti nalis. Appendix: Nonvisualized Bladder: No significant findings. Major vascul ar structures: Atherosclerotic calcifications Reproductive organs: No significan t findings Other: Moderate to large volume ascites including extension into a ri ght inguinal hernia. Skeleton: No acute bony abnormality. IMPRESSION: Multip le dilated small bowel loops in the midabdomen without definite transition point the appearance is nonspecific and could reflect an early or partial small bowel obstruction versus enteritis with infectious, inflammatory and ischemic causes considered. Cirrhosis and evidence of portal hypertension, including moderate to large volume ascites. Cholelithiasis. Moderate to large right pleural effusion with adjacent atelectasis versus pneumonitis. Bilateral nonobstructing kidney st ones. Signed: Binh Saucedo Verified Date/Time: 11/16/2017 21:36:01 Re ading Location: [address] Reading Room [id number] 20:55:00* Test Item Value Reference Range Comments LIPASE (BEAKER) (test fsze=189) 21 U/L 8-78 BASIC METABOLIC [id number] 20:55:00* Test Item Value Reference Range Comments SODIUM (BEAKER) (test pqqc=008) 137 meq/L 136-145 POTASSIUM (BEAKER) (test cozm=304) 4.1 meq/L 3.5-5.1 CHLORIDE (BEAKER) (test bxvu=209) 99 meq/L 98-107 CO2 (BEAKER) (test repz=652) 28 meq/L 22-29 BLOOD UREA NITROGEN (BEAKER) (test iyza=813) 16 mg/dL 7-21 CREATININE (BEAKER) (test ttcy=801) 1.51 mg/dL 0.57-1.25 GLUCOSE RANDOM (BEAKER) (test oobz=738) 145 mg/dL 70-105 CALCIUM (BEAKER) (test oged=331) 10.9 mg/dL 8.4-10.2 EGFR (BEAKER) (test ohye=8671) 47 mL/min/1.73 sq m ESTIMATED GFR IS NOT ACCURATE CREATININE CLEARANCE IN PREDICTING GLOMERULAR FILTRATION RATE. ESTIMATED GFR IS NOT APPLICABLE FOR DIALYSIS PATIENTS. HEPATIC FUNCTION [id number] 20:55:00* Test Item Value Reference Range Comments TOTAL PROTEIN (BEAKER) (test rkux=012) 7.8 gm/dL 6.0-8.3 ALBUMIN (BEAKER) (test qemw=4305) 4.2 g/dL 3.5-5.0 BILIRUBIN TOTAL (BEAKER) (test kglh=092) 1.1 mg/dL 0.2-1.2 BILIRUBIN DIRECT (BEAKER) (test uasa=637) 0.5 mg/dL 0.1-0.5 ALKALINE PHOSPHATASE (BEAKER) (test akzj=435) 75 U/L 40-150 AST (SGOT) (BEAKER) (test qphn=886) 21 U/L 5-34 ALT (SGPT) (BEAKER) (test iquf=536) 11 U/L 6-55 CBC W/PLT COUNT & AUTO [id number] 20:41:00* Test Item Value Reference Range Comments WHITE BLOOD CELL COUNT (BEAKER) (test ouit=815) 3.6 K/ L 3.5-10.5 RED BLOOD CELL COUNT (BEAKER) (test tomy=979) 3.48 M/ L 4.63-6.08 HEMOGLOBIN (BEAKER) (test nkop=666) 10.3 GM/DL 13.7-17.5 HEMATOCRIT (BEAKER) (test lbjj=433) 33.2 % 40.1-51.0 MEAN CORPUSCULAR VOLUME (BEAKER) (test osxj=476) 95.4 fL 79.0-92.2 MEAN CORPUSCULAR HEMOGLOBIN (BEAKER) (test rxdm=964) 29.6 pg 25.7-32.2 MEAN CORPUSCULAR HEMOGLOBIN CONC (BEAKER) (test nmpc=487) 31.0 GM/DL 32.3-36.5 RED CELL DISTRIBUTION WIDTH (BEAKER) (test ijij=500) 15.0 % 11.6-14.4 PLATELET COUNT (BEAKER) (test bmrq=533) 83 K/CU MM 150-450 MEAN PLATELET VOLUME (BEAKER) (test htqp=229) 9.6 fL 9.4-12.4 NUCLEATED RED BLOOD CELLS (BEAKER) (test oewg=612) 0 /100 WBC 0-0 (CELLAVISION MANUAL DIFF)2017-11-16 20:41:00* Test Item Value Reference Range Comments NEUTROPHILS - REL (CELLAVISION)(BEAKER) (test otdk=4378) 86 % LYMPHOCYTES - REL (CELLAVISION)(BEAKER) (test smcl=0712) 6 % MONOCYTES - REL (CELLAVISION)(BEAKER) (test xwuh=4789) 3 % EOSINOPHILS - REL (CELLAVISION)(BEAKER) (test amtd=2556) 1 % BASOPHILS - REL (CELLAVISION)(BEAKER) (test vxsi=8741) 1 % ATYPICAL LYMPHOCYTES - REL (CELLAVISION)(BEAKER) (test oopq=5828) 3 % 0-0 NEUTROPHILS - ABS (CELLAVISION)(BEAKER) (test wgqt=9302) 3.10 K/ul 1.78-5.38 LYMPHOCYTES - ABS (CELLAVISION)(BEAKER) (test tmpd=1682) 0.22 K/ul 1.32-3.57 MONOCYTES - ABS (CELLAVISION)(BEAKER) (test lhbp=1930) 0.11 K/uL 0.30-0.82 EOSINOPHILS - ABS (CELLAVISION)(BEAKER) (test owxb=5327) 0.04 K/uL 0.04-0.54 BASOPHILS - ABS (CELLAVISION)(BEAKER) (test potl=7146) 0.04 K/uL 0.01-0.08 ATYPICAL LYMPHOCYTES - ABS (CELLAVISION)(BEAKER) (test krza=7082) 0.11 K/uL 0.00-0.00 TOTAL COUNTED (BEAKER) (test miaf=5339) 100 WBC MORPHOLOGY (BEAKER) (test rlql=818) Normal PLT MORPHOLOGY (BEAKER) (test jwey=303) Normal ANISOCYTOSIS (BEAKER) (test qxqy=502) 1+ few MACROCYTES (BEAKER) (test elqd=036) 1+ few POIKILOCYTES (BEAKER) (test nqer=835) 1+ few OVALOCYTES (BEAKER) (test snbd=237) 2+ moderate TEAR DROP CELLS (BEAKER) (test qevt=978) 1+ few ARTIFACT (CELLAVISION)(BEAKER) (test xlep=2217) Present PLATELET CONCENTRATION (CELLAVISION)(BEAKER) (test wqmz=0940) Decreased Received comment: User comments: Slide comments: CBC W/PLT COUNT & AUTO [id number] 14:49:00* Test Item Value Reference Range Comments WHITE BLOOD CELL COUNT (BEAKER) (test rffo=195) 4.9 K/ L 3.5-10.5 RED BLOOD CELL COUNT (BEAKER) (test mwvw=698) 3.47 M/ L 4.63-6.08 HEMOGLOBIN (BEAKER) (test abjr=971) 10.4 GM/DL 13.7-17.5 HEMATOCRIT (BEAKER) (test ompk=778) 33.8 % 40.1-51.0 MEAN CORPUSCULAR VOLUME (BEAKER) (test iuxn=142) 97.4 fL 79.0-92.2 MEAN CORPUSCULAR HEMOGLOBIN (BEAKER) (test eofk=629) 30.0 pg 25.7-32.2 MEAN CORPUSCULAR HEMOGLOBIN CONC (BEAKER) (test hlzq=401) 30.8 GM/DL 32.3-36.5 RED CELL DISTRIBUTION WIDTH (BEAKER) (test piik=808) 15.5 % 11.6-14.4 PLATELET COUNT (BEAKER) (test fglj=909) 99 K/CU MM 150-450 MEAN PLATELET VOLUME (BEAKER) (test wsso=389) 10.4 fL 9.4-12.4 NUCLEATED RED BLOOD CELLS (BEAKER) (test jvli=514) 0 /100 WBC 0-0 (CELLAVISION MANUAL DIFF)2017-11-15 14:49:00* Test Item Value Reference Range Comments NEUTROPHILS - REL (CELLAVISION)(BEAKER) (test phhu=6666) 86 % LYMPHOCYTES - REL (CELLAVISION)(BEAKER) (test dpjc=8428) 9 % MONOCYTES - REL (CELLAVISION)(BEAKER) (test dodq=9464) 4 % EOSINOPHILS - REL (CELLAVISION)(BEAKER) (test wqxx=4704) 1 % NEUTROPHILS - ABS (CELLAVISION)(BEAKER) (test sulk=9202) 4.21 K/ul 1.78-5.38 LYMPHOCYTES - ABS (CELLAVISION)(BEAKER) (test tiuk=5548) 0.44 K/ul 1.32-3.57 MONOCYTES - ABS (CELLAVISION)(BEAKER) (test gfki=9491) 0.20 K/uL 0.30-0.82 EOSINOPHILS - ABS (CELLAVISION)(BEAKER) (test xdcc=3055) 0.05 K/uL 0.04-0.54 TOTAL COUNTED (BEAKER) (test aywo=3887) 100 WBC MORPHOLOGY (BEAKER) (test xccz=540) Normal PLT MORPHOLOGY (BEAKER) (test glai=898) Normal ANISOCYTOSIS (BEAKER) (test mtav=350) 1+ few POIKILOCYTES (BEAKER) (test tsat=337) 1+ few ARTIFACT (CELLAVISION)(BEAKER) (test lwpp=8131) Present PLATELET CONCENTRATION (CELLAVISION)(BEAKER) (test ctjv=7741) Decreased Received comment: User comments: Slide comments: ALPHA FETOPROTEIN (AFP), TUMOR [id number] 13:54:00* Test Item Value Reference Range Comments ALPHA-FETOPROTEIN (BEAKER) (test vblc=9229) < ng/mL <10.0 HEPATIC FUNCTION [id number] 13:40:00* Test Item Value Reference Range Comments TOTAL PROTEIN (BEAKER) (test kgqp=073) 7.9 gm/dL 6.0-8.3 ALBUMIN (BEAKER) (test snyg=3701) 4.3 g/dL 3.5-5.0 BILIRUBIN TOTAL (BEAKER) (test efmb=327) 1.5 mg/dL 0.2-1.2 BILIRUBIN DIRECT (BEAKER) (test hgkc=396) 0.6 mg/dL 0.1-0.5 ALKALINE PHOSPHATASE (BEAKER) (test faln=871) 80 U/L 40-150 AST (SGOT) (BEAKER) (test kxtr=667) 21 U/L 5-34 ALT (SGPT) (BEAKER) (test eehi=074) 10 U/L 6-55 BASIC METABOLIC [id number] 13:40:00* Test Item Value Reference Range Comments SODIUM (BEAKER) (test tpgg=163) 137 meq/L 136-145 POTASSIUM (BEAKER) (test yzoy=229) 4.9 meq/L 3.5-5.1 CHLORIDE (BEAKER) (test xjrt=336) 101 meq/L 98-107 CO2 (BEAKER) (test ujdd=647) 26 meq/L 22-29 BLOOD UREA NITROGEN (BEAKER) (test gawm=208) 15 mg/dL 7-21 CREATININE (BEAKER) (test tkvb=715) 1.39 mg/dL 0.57-1.25 GLUCOSE RANDOM (BEAKER) (test iymk=058) 115 mg/dL 70-105 CALCIUM (BEAKER) (test dcyb=762) 11.0 mg/dL 8.4-10.2 EGFR (BEAKER) (test ppor=6421) 52 mL/min/1.73 sq m ESTIMATED GFR IS NOT ACCURATE CREATININE CLEARANCE IN PREDICTING GLOMERULAR FILTRATION RATE. ESTIMATED GFR IS NOT APPLICABLE FOR DIALYSIS PATIENTS. PROTHROMBIN [id number] 13:20:00* Test Item Value Reference Range Comments PROTIME (BEAKER) (test ligi=849) 16.2 seconds 11.7-14.7 INR (BEAKER) (test elss=714) 1.3 <=5.9 RECOMMENDED COUMADIN/WARFARIN INR THERAPY RANGESSTANDARD DOSE: 2.0 - 3.0 Inclu tabatha: PROPHYLAXIS for venous thrombosis, systemic embolization; TREATMENT for jace ous thrombosis and/or pulmonary embolus.HIGH RISK: Target INR is 2.5-3.5 for pat ients with mechanical heart valves.URINE [id number] 11:56:00* Test Item Value Reference Range Comments CULTURE (BEAKER) (test qstk=0152) No growth BLOOD [id number] 00:00:00* Test Item Value Reference Range Comments CULTURE (BEAKER) (test amsw=7768) No growth in 5 days BLOOD [id number] 00:00:00* Test Item Value Reference Range Comments CULTURE (BEAKER) (test wxvi=1357) No growth in 5 days BODY FLUID CULTURE + GRAM [id number] 15:01:00* Test Item Value Reference Range Comments CULTURE (BEAKER) (test pvtc=8803) No growth GRAM STAIN RESULT (BEAKER) (test tpfz=3582) <1+ WBCs GRAM STAIN RESULT (BEAKER) (test dnhv=84005) No organisms seen POCT-GLUCOSE [id number] 12:47:00* Test Item Value Reference Range Comments POC-GLUCOSE METER (BEAKER) (test dylc=6261) 179 mg/dL 70-110 TESTED AT [address] [address] BASIC METABOLIC [id number] 12:09:00* Test Item Value Reference Range Comments SODIUM (BEAKER) (test cpba=298) 135 meq/L 136-145 POTASSIUM (BEAKER) (test qgtu=048) 3.6 meq/L 3.5-5.1 CHLORIDE (BEAKER) (test caps=308) 105 meq/L 98-107 CO2 (BEAKER) (test tuqs=689) 25 meq/L 22-29 BLOOD UREA NITROGEN (BEAKER) (test uxwu=423) 20 mg/dL 7-21 CREATININE (BEAKER) (test fxwg=368) 1.59 mg/dL 0.57-1.25 GLUCOSE RANDOM (BEAKER) (test puoy=157) 145 mg/dL 70-105 CALCIUM (BEAKER) (test edih=620) 7.9 mg/dL 8.4-10.2 EGFR (BEAKER) (test tzmj=4563) 44 mL/min/1.73 sq m ESTIMATED GFR IS NOT ACCURATE CREATININE CLEARANCE IN PREDICTING GLOMERULAR FILTRATION RATE. ESTIMATED GFR IS NOT APPLICABLE FOR DIALYSIS PATIENTS. CBC W/PLT COUNT & AUTO [id number] 10:45:00* Test Item Value Reference Range Comments WHITE BLOOD CELL COUNT (BEAKER) (test efnn=608) 1.8 K/ L 3.5-10.5 RED BLOOD CELL COUNT (BEAKER) (test hizh=829) 3.01 M/ L 4.63-6.08 HEMOGLOBIN (BEAKER) (test pyxx=127) 9.2 GM/DL 13.7-17.5 HEMATOCRIT (BEAKER) (test ayam=122) 29.1 % 40.1-51.0 MEAN CORPUSCULAR VOLUME (BEAKER) (test rnnj=351) 96.7 fL 79.0-92.2 MEAN CORPUSCULAR HEMOGLOBIN (BEAKER) (test rhad=668) 30.6 pg 25.7-32.2 MEAN CORPUSCULAR HEMOGLOBIN CONC (BEAKER) (test xrkt=142) 31.6 GM/DL 32.3-36.5 RED CELL DISTRIBUTION WIDTH (BEAKER) (test hixx=403) 13.7 % 11.6-14.4 PLATELET COUNT (BEAKER) (test tgqo=510) 79 K/CU MM 150-450 MEAN PLATELET VOLUME (BEAKER) (test vrte=341) 10.4 fL 9.4-12.4 NUCLEATED RED BLOOD CELLS (BEAKER) (test rqgd=606) 0 /100 WBC 0-0 (CELLAVISION MANUAL DIFF)2017-10-30 10:45:00* Test Item Value Reference Range Comments NEUTROPHILS - REL (CELLAVISION)(BEAKER) (test bcsy=8239) 72 % LYMPHOCYTES - REL (CELLAVISION)(BEAKER) (test hrcc=5728) 18 % MONOCYTES - REL (CELLAVISION)(BEAKER) (test sfyk=8128) 5 % EOSINOPHILS - REL (CELLAVISION)(BEAKER) (test omts=8034) 4 % ATYPICAL LYMPHOCYTES - REL (CELLAVISION)(BEAKER) (test ksps=1400) 1 % 0-0 NEUTROPHILS - ABS (CELLAVISION)(BEAKER) (test pexo=5413) 1.30 K/ul 1.78-5.38 LYMPHOCYTES - ABS (CELLAVISION)(BEAKER) (test beaw=8723) 0.32 K/ul 1.32-3.57 MONOCYTES - ABS (CELLAVISION)(BEAKER) (test johc=9572) 0.09 K/uL 0.30-0.82 EOSINOPHILS - ABS (CELLAVISION)(BEAKER) (test ojdf=8685) 0.07 K/uL 0.04-0.54 ATYPICAL LYMPHOCYTES - ABS (CELLAVISION)(BEAKER) (test zdnz=8285) 0.02 K/uL 0.00-0.00 TOTAL COUNTED (BEAKER) (test pell=0487) 100 SMUDGE CELLS (BEAKER) (test esbj=3148) Present GIANT PLATELETS (BEAKER) (test jpqb=481) Present ANISOCYTOSIS (BEAKER) (test foxi=759) 1+ few POIKILOCYTES (BEAKER) (test flap=665) 1+ few ARTIFACT (CELLAVISION)(BEAKER) (test ejci=4485) Present PLATELET CONCENTRATION (CELLAVISION)(BEAKER) (test bosj=5513) Decreased Received comment: User comments: Slide comments: POCT-GLUCOSE [id number] 07:20:00* Test Item Value Reference Range Comments POC-GLUCOSE METER (BEAKER) (test nrgp=0864) 109 mg/dL 70-110 TESTED AT [facility] [address] [facility] [address] [id number] 06:20:00* Test Item Value Reference Range Comments PHOSPHORUS (BEAKER) (test xkgw=422) 1.9 mg/dL 2.3-4.7 [id number] 06:20:00* Test Item Value Reference Range Comments MAGNESIUM (BEAKER) (test gekt=869) 1.9 mg/dL 1.6-2.6 COMPREHENSIVE METABOLIC [id number] 06:20:00* Test Item Value Reference Range Comments TOTAL PROTEIN (BEAKER) (test aqph=612) 6.7 gm/dL 6.0-8.3 ALBUMIN (BEAKER) (test dypy=9566) 4.2 g/dL 3.5-5.0 ALKALINE PHOSPHATASE (BEAKER) (test khef=368) 49 U/L 40-150 BILIRUBIN TOTAL (BEAKER) (test pfbq=631) 0.5 mg/dL 0.2-1.2 SODIUM (BEAKER) (test blaa=212) 141 meq/L 136-145 POTASSIUM (BEAKER) (test geix=733) 3.8 meq/L 3.5-5.1 CHLORIDE (BEAKER) (test wepp=064) 109 meq/L 98-107 CO2 (BEAKER) (test smdo=716) 24 meq/L 22-29 BLOOD UREA NITROGEN (BEAKER) (test yadr=461) 19 mg/dL 7-21 CREATININE (BEAKER) (test ptqy=009) 1.63 mg/dL 0.57-1.25 GLUCOSE RANDOM (BEAKER) (test gfdz=130) 98 mg/dL 70-105 CALCIUM (BEAKER) (test aild=559) 8.3 mg/dL 8.4-10.2 AST (SGOT) (BEAKER) (test esla=476) 16 U/L 5-34 ALT (SGPT) (BEAKER) (test gegv=224) 8 U/L 6-55 EGFR (BEAKER) (test zwjm=4934) 43 mL/min/1.73 sq m ESTIMATED GFR IS NOT ACCURATE CREATININE CLEARANCE IN PREDICTING GLOMERULAR FILTRATION RATE. ESTIMATED GFR IS NOT APPLICABLE FOR DIALYSIS PATIENTS. CALCIUM, [id number] 06:08:00* Test Item Value Reference Range Comments CALCIUM IONIZED (BEAKER) (test wkps=875) 1.06 mmol/L 1.12-1.27 PH, BLOOD (BEAKER) (test cxai=4270) 7.33 POCT-GLUCOSE [id number] 22:49:00* Test Item Value Reference Range Comments POC-GLUCOSE METER (BEAKER) (test cqdb=6653) 186 mg/dL 70-110 TESTED AT [facility] [address] [facility] [address] URINALYSIS W/ [id number] 18:35:00* Test Item Value Reference Range Comments COLOR (BEAKER) (test zdjd=683) Yellow CLARITY (BEAKER) (test jhtu=981) Clear SPECIFIC GRAVITY UA (BEAKER) (test vife=658) 1.016 1.001-1.035 PH UA (BEAKER) (test fhtc=987) 6.0 5.0-8.0 PROTEIN UA (BEAKER) (test svod=058) 10 mg/dL Negative GLUCOSE UA (BEAKER) (test ypgs=998) Negative Negative KETONES UA (BEAKER) (test bpkc=406) Negative Negative BILIRUBIN UA (BEAKER) (test gedo=967) Negative Negative BLOOD UA (BEAKER) (test ijee=789) Small Negative NITRITE UA (BEAKER) (test zoxj=498) Negative Negative LEUKOCYTE ESTERASE UA (BEAKER) (test xgrw=017) Negative Negative UROBILINOGEN UA (BEAKER) (test llhx=626) 0.2 mg/dL 0.2-1.0 RBC UA (BEAKER) (test dafk=533) 12 /HPF WBC UA (BEAKER) (test cbna=900) 8 /HPF SQUAMOUS EPITHELIAL (BEAKER) (test ytsg=113) 1 /HPF HYALINE CASTS (BEAKER) (test mvau=871) 2 /LPF SOURCE(BEAKER) (test wvrp=5564) Urine, Voided POCT-GLUCOSE [id number] 17:51:00* Test Item Value Reference Range Comments POC-GLUCOSE METER (BEAKER) (test afwa=4829) 99 mg/dL 70-110 TESTED AT [facility] [address] [facility] [address] POCT-GLUCOSE [id number] 12:34:00* Test Item Value Reference Range Comments POC-GLUCOSE METER (BEAKER) (test eqqe=7901) 226 mg/dL 70-110 TESTED AT [place] [id number] [facility] [address] CBC W/PLT COUNT & AUTO [id number] 08:05:00* Test Item Value Reference Range Comments WHITE BLOOD CELL COUNT (BEAKER) (test coew=203) 1.7 K/ L 3.5-10.5 RED BLOOD CELL COUNT (BEAKER) (test mouk=501) 2.95 M/ L 4.63-6.08 HEMOGLOBIN (BEAKER) (test zhln=589) 8.9 GM/DL 13.7-17.5 HEMATOCRIT (BEAKER) (test rzok=424) 28.3 % 40.1-51.0 MEAN CORPUSCULAR VOLUME (BEAKER) (test bltd=228) 95.9 fL 79.0-92.2 MEAN CORPUSCULAR HEMOGLOBIN (BEAKER) (test cpnl=750) 30.2 pg 25.7-32.2 MEAN CORPUSCULAR HEMOGLOBIN CONC (BEAKER) (test gtlx=112) 31.4 GM/DL 32.3-36.5 RED CELL DISTRIBUTION WIDTH (BEAKER) (test kdjg=884) 13.6 % 11.6-14.4 PLATELET COUNT (BEAKER) (test erzg=647) 81 K/CU MM 150-450 MEAN PLATELET VOLUME (BEAKER) (test bqda=417) 10.0 fL 9.4-12.4 NUCLEATED RED BLOOD CELLS (BEAKER) (test dalk=094) 0 /100 WBC 0-0 (CELLAVISION MANUAL DIFF)2017-10-29 08:05:00* Test Item Value Reference Range Comments NEUTROPHILS - REL (CELLAVISION)(BEAKER) (test bxkq=9182) 78 % LYMPHOCYTES - REL (CELLAVISION)(BEAKER) (test yhsz=1278) 13 % MONOCYTES - REL (CELLAVISION)(BEAKER) (test bdvj=1551) 5 % EOSINOPHILS - REL (CELLAVISION)(BEAKER) (test maus=2505) 1 % BASOPHILS - REL (CELLAVISION)(BEAKER) (test jomu=3668) 2 % BANDS - REL (CELLAVISION)(BEAKER) (test glkw=4906) 1 % 0-10 NEUTROPHILS - ABS (CELLAVISION)(BEAKER) (test qdlr=8379) 1.33 K/ul 1.78-5.38 LYMPHOCYTES - ABS (CELLAVISION)(BEAKER) (test ramd=4376) 0.22 K/ul 1.32-3.57 MONOCYTES - ABS (CELLAVISION)(BEAKER) (test qunw=7732) 0.09 K/uL 0.30-0.82 EOSINOPHILS - ABS (CELLAVISION)(BEAKER) (test vyqd=6239) 0.02 K/uL 0.04-0.54 BASOPHILS - ABS (CELLAVISION)(BEAKER) (test yrib=4497) 0.03 K/uL 0.01-0.08 BANDS - ABS (CELLAVISION)(BEAKER) (test bjmg=3025) 0.02 K/uL 0.00-0.80 TOTAL COUNTED (BEAKER) (test mqis=0963) 100 WBC MORPHOLOGY (BEAKER) (test uxby=824) Normal PLT MORPHOLOGY (BEAKER) (test qbhm=674) Normal ANISOCYTOSIS (BEAKER) (test bggw=006) 1+ few MICROCYTES (BEAKER) (test bnar=714) 1+ few POIKILOCYTES (BEAKER) (test gqxy=613) 2+ moderate OVALOCYTES (BEAKER) (test uqgx=243) 1+ few ARTIFACT (CELLAVISION)(BEAKER) (test qpcc=0964) Present PLATELET CONCENTRATION (CELLAVISION)(BEAKER) (test hcty=3283) Decreased Received comment: User comments: Slide comments: POCT-GLUCOSE [id number] 07:52:00* Test Item Value Reference Range Comments POC-GLUCOSE METER (BEAKER) (test fpmu=0280) 107 mg/dL 70-110 TESTED AT [facility] [address] [facility] [address] [id number] 07:50:00* Test Item Value Reference Range Comments PHOSPHORUS (BEAKER) (test mcgx=908) 2.2 mg/dL 2.3-4.7 [id number] 07:50:00* Test Item Value Reference Range Comments MAGNESIUM (BEAKER) (test bylv=173) 1.7 mg/dL 1.6-2.6 COMPREHENSIVE METABOLIC [id number] 07:50:00* Test Item Value Reference Range Comments TOTAL PROTEIN (BEAKER) (test ceiw=656) 6.4 gm/dL 6.0-8.3 ALBUMIN (BEAKER) (test sbwt=9521) 3.8 g/dL 3.5-5.0 ALKALINE PHOSPHATASE (BEAKER) (test kadu=747) 48 U/L 40-150 BILIRUBIN TOTAL (BEAKER) (test hwdq=340) 0.7 mg/dL 0.2-1.2 SODIUM (BEAKER) (test nmqa=948) 138 meq/L 136-145 POTASSIUM (BEAKER) (test osxo=234) 3.5 meq/L 3.5-5.1 CHLORIDE (BEAKER) (test xijc=188) 106 meq/L 98-107 CO2 (BEAKER) (test waex=344) 24 meq/L 22-29 BLOOD UREA NITROGEN (BEAKER) (test zisd=779) 19 mg/dL 7-21 CREATININE (BEAKER) (test wgnv=492) 1.48 mg/dL 0.57-1.25 GLUCOSE RANDOM (BEAKER) (test hubm=165) 99 mg/dL 70-105 CALCIUM (BEAKER) (test jxmz=722) 8.3 mg/dL 8.4-10.2 AST (SGOT) (BEAKER) (test pmwi=514) 16 U/L 5-34 ALT (SGPT) (BEAKER) (test szge=770) 7 U/L 6-55 EGFR (BEAKER) (test knbp=3798) 48 mL/min/1.73 sq m ESTIMATED GFR IS NOT ACCURATE CREATININE CLEARANCE IN PREDICTING GLOMERULAR FILTRATION RATE. ESTIMATED GFR IS NOT APPLICABLE FOR DIALYSIS PATIENTS. CREATINE KINASE (CK)2017-10-29 07:50:00* Test Item Value Reference Range Comments CREATINE KINASE TOTAL (BEAKER) (test schk=440) 32 U/L 29-200 CALCIUM, [id number] 07:29:00* Test Item Value Reference Range Comments CALCIUM IONIZED (BEAKER) (test oybf=551) 1.02 mmol/L 1.12-1.27 PH, BLOOD (BEAKER) (test tnet=6890) 7.43 POCT-GLUCOSE [id number] 00:42:00* Test Item Value Reference Range Comments POC-GLUCOSE METER (BEAKER) (test mvua=8502) 192 mg/dL 70-110 TESTED AT [facility] [address] [facility] [address] CREATININE, RANDOM [id number] 17:52:00* Test Item Value Reference Range Comments CREATININE URINE (BEAKER) (test crkw=760) 105.1 mg/dL Reference Range: No NormalsPROTEIN, RANDOM [id number] 17:52:00* Test Item Value Reference Range Comments PROTEIN, URINE (BEAKER) (test gmtc=6993) 9 mg/dL 0-14 SODIUM, RANDOM [id number] 17:52:00* Test Item Value Reference Range Comments SODIUM URINE (BEAKER) (test sikl=696) 63 meq/L Reference Range: No NormalsEOSINOPHIL SMEAR, [id number] 17:23:00* Test Item Value Reference Range Comments EOSINOPHIL SMEAR, URINE (BEAKER) (test zrmm=7395) Rare EOS=less than 5% WBCs seen are EOS No EOS seen URINALYSIS W/ [id number] 17:06:00* Test Item Value Reference Range Comments COLOR (BEAKER) (test mtxo=073) Yellow CLARITY (BEAKER) (test wmrc=623) Clear SPECIFIC GRAVITY UA (BEAKER) (test dzyx=639) 1.013 1.001-1.035 PH UA (BEAKER) (test qcpe=322) 6.5 5.0-8.0 PROTEIN UA (BEAKER) (test mudd=137) 10 mg/dL Negative GLUCOSE UA (BEAKER) (test awmw=109) Negative Negative KETONES UA (BEAKER) (test ywjt=498) Negative Negative BILIRUBIN UA (BEAKER) (test gsay=968) Negative Negative BLOOD UA (BEAKER) (test qvcn=406) Moderate Negative NITRITE UA (BEAKER) (test uqrd=814) Negative Negative LEUKOCYTE ESTERASE UA (BEAKER) (test qamj=523) Negative Negative UROBILINOGEN UA (BEAKER) (test mjtc=627) 0.2 mg/dL 0.2-1.0 RBC UA (BEAKER) (test rjxc=234) 24 /HPF WBC UA (BEAKER) (test owyo=700) 3 /HPF SQUAMOUS EPITHELIAL (BEAKER) (test qiyi=132) < /HPF CRYSTALS, URINE (BEAKER) (test uaib=4923) Rare SOURCE(BEAKER) (test uyzu=2173) POCT-GLUCOSE [id number] 16:52:00* Test Item Value Reference Range Comments POC-GLUCOSE METER (BEAKER) (test qslg=1034) 161 mg/dL 70-110 TESTED AT [facility] [address] [facility] [address] BODY FLUID CELL COUNT WITH [id number] 14:12:00* Test Item Value Reference Range Comments APPEARANCE FLUID (BEAKER) (test wovl=444) Clear Clear COLOR FLUID (BEAKER) (test yxfj=291) Yellow Colorless, Straw RBC FLUID (BEAKER) (test akko=056) 215 /cu mm <=1 ADJUSTED WBC FLUID (BEAKER) (test ufru=8100) 358 /cu mm <=5 LINING CELLS (BEAKER) (test gvvj=7790) 36 /cu mm <=1 NEUTROPHILS FLUID (BEAKER) (test dkhh=0682) 3 % LYMPHS FLUID (BEAKER) (test dnpc=801) 51 % MONO/MACROPHAGE FLUID (BEAKER) (test bcbm=271) 46 % EOSINOPHILS FLUID (BEAKER) (test blir=888) 0 % BASO FLUID (BEAKER) (test pgxm=791) 0 % CONTAINER BODY FLUID (BEAKER) (test ktcj=9177) EDTA Tube POCT-GLUCOSE [id number] 11:46:00* Test Item Value Reference Range Comments POC-GLUCOSE METER (BEAKER) (test alyr=2048) 204 mg/dL 70-110 TESTED AT [address] [address] U/S, [id number] 10:24:00Referring: Dr. Francis Jeronimo Jr.Send for cell count and cultureReason for exam:->large ascites. Please limit to 5L due to URSULA. Last took eliquis on 10/24/17INAL REPORT Procedure: Ultrasound Guided Paracentesis: Pre procedure Diagnosis: Ascites Post procedure Diagnosis: Same Sedation: None Local anesthesia: 1% Xylocaine. Description/findings: The risks, benefits, and alternatives of the procedure were explained. Questions were answered, and informed, written consent was then obtained. The right lower quadrant was prepped and draped and local anesthesia given. A 5 F paracentesis catheter was inserted into the peritoneal space and 4200 cc of clear yellow ascites was aspirated. Specimen were collected for the lab. No immediate complications were noted. Estimated blood loss: none. Impression: Uncomplicated ultrasound-guided paracentesis Signed: [facility] Verified Date/Time: 10/28/2017 10:24:00 Reading Location: [address] Consult Reading Room -GLUCOSE [id number] 07:53:00* Test Item Value Reference Range Comments POC-GLUCOSE METER (BEAKER) (test ckji=0460) 119 mg/dL 70-110 TESTED AT [facility] [address] [facility] [address] CBC W/PLT COUNT & AUTO [id number] 07:43:00* Test Item Value Reference Range Comments WHITE BLOOD CELL COUNT (BEAKER) (test heny=639) 1.9 K/ L 3.5-10.5 RED BLOOD CELL COUNT (BEAKER) (test wjsu=355) 2.97 M/ L 4.63-6.08 HEMOGLOBIN (BEAKER) (test tbzp=483) 9.0 GM/DL 13.7-17.5 HEMATOCRIT (BEAKER) (test yahf=790) 28.8 % 40.1-51.0 MEAN CORPUSCULAR VOLUME (BEAKER) (test krcv=711) 97.0 fL 79.0-92.2 MEAN CORPUSCULAR HEMOGLOBIN (BEAKER) (test pawi=587) 30.3 pg 25.7-32.2 MEAN CORPUSCULAR HEMOGLOBIN CONC (BEAKER) (test blpm=338) 31.3 GM/DL 32.3-36.5 RED CELL DISTRIBUTION WIDTH (BEAKER) (test jzxl=808) 13.8 % 11.6-14.4 PLATELET COUNT (BEAKER) (test tcxq=022) 87 K/CU MM 150-450 MEAN PLATELET VOLUME (BEAKER) (test egtd=466) 10.7 fL 9.4-12.4 NUCLEATED RED BLOOD CELLS (BEAKER) (test mdtp=057) 0 /100 WBC 0-0 (CELLAVISION MANUAL DIFF)2017-10-28 07:43:00* Test Item Value Reference Range Comments NEUTROPHILS - REL (CELLAVISION)(BEAKER) (test xdya=4593) 73 % LYMPHOCYTES - REL (CELLAVISION)(BEAKER) (test pkiw=8610) 18 % MONOCYTES - REL (CELLAVISION)(BEAKER) (test fvxv=2427) 4 % EOSINOPHILS - REL (CELLAVISION)(BEAKER) (test srbd=0384) 3 % ATYPICAL LYMPHOCYTES - REL (CELLAVISION)(BEAKER) (test pekt=7200) 2 % 0-0 NEUTROPHILS - ABS (CELLAVISION)(BEAKER) (test dbll=4878) 1.39 K/ul 1.78-5.38 LYMPHOCYTES - ABS (CELLAVISION)(BEAKER) (test nvyp=3761) 0.34 K/ul 1.32-3.57 MONOCYTES - ABS (CELLAVISION)(BEAKER) (test ftfx=8918) 0.08 K/uL 0.30-0.82 EOSINOPHILS - ABS (CELLAVISION)(BEAKER) (test orjm=6676) 0.06 K/uL 0.04-0.54 ATYPICAL LYMPHOCYTES - ABS (CELLAVISION)(BEAKER) (test xqfv=6634) 0.04 K/uL 0.00-0.00 TOTAL COUNTED (BEAKER) (test tulp=1308) 100 WBC MORPHOLOGY (BEAKER) (test yzjg=095) Normal LARGE PLT(BEAKER) (test ukiu=7177) Present POLYCHROMATOPHILLIC RBCS(BEAKER) (test tgmc=155) 1+ few HYPOCHROMIA (BEAKER) (test pzru=247) 2+ moderate OVALOCYTES (BEAKER) (test wgfb=864) 1+ few ARTIFACT (CELLAVISION)(BEAKER) (test xeau=9573) Present PLATELET CONCENTRATION (CELLAVISION)(BEAKER) (test balp=9314) Decreased Received comment: User comments: Slide comments: HEPATIC FUNCTION PANEL 2017-10-28 06:57:00* Test Item Value Reference Range Comments TOTAL PROTEIN (BEAKER) (test rfrb=319) 6.7 gm/dL 6.0-8.3 ALBUMIN (BEAKER) (test xucb=9119) 3.8 g/dL 3.5-5.0 BILIRUBIN TOTAL (BEAKER) (test jrjh=070) 0.7 mg/dL 0.2-1.2 BILIRUBIN DIRECT (BEAKER) (test gqmf=043) 0.4 mg/dL 0.1-0.5 ALKALINE PHOSPHATASE (BEAKER) (test mcvt=870) 53 U/L 40-150 AST (SGOT) (BEAKER) (test ltjd=413) 17 U/L 5-34 ALT (SGPT) (BEAKER) (test gnzz=176) 8 U/L 6-55 BASIC METABOLIC [id number] 06:57:00* Test Item Value Reference Range Comments SODIUM (BEAKER) (test szlx=389) 138 meq/L 136-145 POTASSIUM (BEAKER) (test gnzo=123) 3.6 meq/L 3.5-5.1 CHLORIDE (BEAKER) (test lbas=506) 105 meq/L 98-107 CO2 (BEAKER) (test txwm=824) 22 meq/L 22-29 BLOOD UREA NITROGEN (BEAKER) (test sapw=793) 21 mg/dL 7-21 CREATININE (BEAKER) (test grkw=964) 1.64 mg/dL 0.57-1.25 GLUCOSE RANDOM (BEAKER) (test mayj=210) 103 mg/dL 70-105 CALCIUM (BEAKER) (test zovf=709) 8.9 mg/dL 8.4-10.2 EGFR (BEAKER) (test wuuu=1367) 43 mL/min/1.73 sq m ESTIMATED GFR IS NOT ACCURATE CREATININE CLEARANCE IN PREDICTING GLOMERULAR FILTRATION RATE. ESTIMATED GFR IS NOT APPLICABLE FOR DIALYSIS PATIENTS. PROTHROMBIN TIME/[id number] 06:29:00* Test Item Value Reference Range Comments PROTIME (BEAKER) (test smav=635) 19.4 seconds 11.7-14.7 INR (BEAKER) (test ygys=928) 1.6 <=5.9 RECOMMENDED COUMADIN/WARFARIN INR THERAPY RANGESSTANDARD DOSE: 2.0 - 3.0 Inclu tabatha: PROPHYLAXIS for venous thrombosis, systemic embolization; TREATMENT for jace ous thrombosis and/or pulmonary embolus.HIGH RISK: Target INR is 2.5-3.5 for pat ients with mechanical heart valves.POCT-GLUCOSE [id number] 22:21:00* Test Item Value Reference Range Comments POC-GLUCOSE METER (BEAKER) (test tcyz=9044) 157 mg/dL 70-110 TESTED AT [place] [id number] [facility] [address] POCT-GLUCOSE [id number] 17:38:00* Test Item Value Reference Range Comments POC-GLUCOSE METER (BEAKER) (test msga=3986) 204 mg/dL 70-110 TESTED AT [place] [id number] [facility] [address] POCT-GLUCOSE [id number] 16:28:00* Test Item Value Reference Range Comments POC-GLUCOSE METER (BEAKER) (test ylps=2516) 230 mg/dL 70-110 TESTED AT [address] [address] HEMOGLOBIN AND [id number] 16:22:00* Test Item Value Reference Range Comments HEMOGLOBIN (BEAKER) (test zwch=280) 8.6 GM/DL 13.7-17.5 HEMATOCRIT (BEAKER) (test tixw=722) 27.2 % 40.1-51.0 POCT-GLUCOSE [id number] 12:00:00* Test Item Value Reference Range Comments POC-GLUCOSE METER (BEAKER) (test yfwm=9428) 187 mg/dL 70-110 TESTED AT [facility] [address] [facility] [address] CBC W/PLT COUNT & AUTO [id number] 10:34:00* Test Item Value Reference Range Comments WHITE BLOOD CELL COUNT (BEAKER) (test dnrq=690) 1.8 K/ L 3.5-10.5 RED BLOOD CELL COUNT (BEAKER) (test dqwo=455) 2.81 M/ L 4.63-6.08 HEMOGLOBIN (BEAKER) (test wqri=339) 8.5 GM/DL 13.7-17.5 HEMATOCRIT (BEAKER) (test aigv=414) 26.8 % 40.1-51.0 MEAN CORPUSCULAR VOLUME (BEAKER) (test icvd=928) 95.4 fL 79.0-92.2 MEAN CORPUSCULAR HEMOGLOBIN (BEAKER) (test xnhg=075) 30.2 pg 25.7-32.2 MEAN CORPUSCULAR HEMOGLOBIN CONC (BEAKER) (test hwtt=019) 31.7 GM/DL 32.3-36.5 RED CELL DISTRIBUTION WIDTH (BEAKER) (test zjei=466) 13.7 % 11.6-14.4 PLATELET COUNT (BEAKER) (test pyxq=821) 71 K/CU MM 150-450 MEAN PLATELET VOLUME (BEAKER) (test kxkc=509) 10.3 fL 9.4-12.4 NUCLEATED RED BLOOD CELLS (BEAKER) (test kqur=075) 0 /100 WBC 0-0 (CELLAVISION MANUAL DIFF)2017-10-27 10:34:00* Test Item Value Reference Range Comments NEUTROPHILS - REL (CELLAVISION)(BEAKER) (test jlzp=5709) 75 % LYMPHOCYTES - REL (CELLAVISION)(BEAKER) (test hgvz=5823) 13 % MONOCYTES - REL (CELLAVISION)(BEAKER) (test rleo=2106) 4 % EOSINOPHILS - REL (CELLAVISION)(BEAKER) (test azdd=7898) 1 % BANDS - REL (CELLAVISION)(BEAKER) (test mkqm=9374) 7 % 0-10 NEUTROPHILS - ABS (CELLAVISION)(BEAKER) (test cqvx=8867) 1.35 K/ul 1.78-5.38 LYMPHOCYTES - ABS (CELLAVISION)(BEAKER) (test iiui=9540) 0.23 K/ul 1.32-3.57 MONOCYTES - ABS (CELLAVISION)(BEAKER) (test ecds=3795) 0.07 K/uL 0.30-0.82 EOSINOPHILS - ABS (CELLAVISION)(BEAKER) (test nsac=3157) 0.02 K/uL 0.04-0.54 BANDS - ABS (CELLAVISION)(BEAKER) (test uihq=6125) 0.13 K/uL 0.00-0.80 TOTAL COUNTED (BEAKER) (test mvzr=5162) 100 WBC MORPHOLOGY (BEAKER) (test ftox=373) Normal PLT MORPHOLOGY (BEAKER) (test vbrk=985) Normal ANISOCYTOSIS (BEAKER) (test xtct=221) 1+ few POIKILOCYTES (BEAKER) (test bfza=690) 1+ few ARTIFACT (CELLAVISION)(BEAKER) (test xsvq=0023) Present PLATELET CONCENTRATION (CELLAVISION)(BEAKER) (test iham=7892) Decreased Received comment: User comments: Slide comments: POCT-GLUCOSE [id number] 08:17:00* Test Item Value Reference Range Comments POC-GLUCOSE METER (BEAKER) (test xnhw=8642) 133 mg/dL 70-110 TESTED AT [address] [address] HEPATIC FUNCTION [id number] 06:14:00* Test Item Value Reference Range Comments TOTAL PROTEIN (BEAKER) (test gmcs=920) 6.2 gm/dL 6.0-8.3 ALBUMIN (BEAKER) (test ilzo=4049) 3.2 g/dL 3.5-5.0 BILIRUBIN TOTAL (BEAKER) (test tbhe=287) 0.8 mg/dL 0.2-1.2 BILIRUBIN DIRECT (BEAKER) (test msos=945) 0.5 mg/dL 0.1-0.5 ALKALINE PHOSPHATASE (BEAKER) (test rqok=175) 55 U/L 40-150 AST (SGOT) (BEAKER) (test nime=310) 19 U/L 5-34 ALT (SGPT) (BEAKER) (test wgdw=874) 9 U/L 6-55 BASIC METABOLIC [id number] 06:14:00* Test Item Value Reference Range Comments SODIUM (BEAKER) (test ggqp=375) 136 meq/L 136-145 POTASSIUM (BEAKER) (test wtgq=587) 3.8 meq/L 3.5-5.1 CHLORIDE (BEAKER) (test qahx=869) 104 meq/L 98-107 CO2 (BEAKER) (test xpui=407) 24 meq/L 22-29 BLOOD UREA NITROGEN (BEAKER) (test edyg=007) 18 mg/dL 7-21 CREATININE (BEAKER) (test oguv=099) 1.59 mg/dL 0.57-1.25 GLUCOSE RANDOM (BEAKER) (test ohsh=611) 123 mg/dL 70-105 CALCIUM (BEAKER) (test xozv=710) 9.3 mg/dL 8.4-10.2 EGFR (BEAKER) (test xtbh=4361) 44 mL/min/1.73 sq m ESTIMATED GFR IS NOT ACCURATE CREATININE CLEARANCE IN PREDICTING GLOMERULAR FILTRATION RATE. ESTIMATED GFR IS NOT APPLICABLE FOR DIALYSIS PATIENTS. PROTHROMBIN TIME/[id number] 05:37:00* Test Item Value Reference Range Comments PROTIME (BEAKER) (test ortv=256) 22.1 seconds 11.7-14.7 INR (BEAKER) (test qtsk=828) 1.9 <=5.9 RECOMMENDED COUMADIN/WARFARIN INR THERAPY RANGESSTANDARD DOSE: 2.0 - 3.0 Inclu tabatha: PROPHYLAXIS for venous thrombosis, systemic embolization; TREATMENT for jace ous thrombosis and/or pulmonary embolus.HIGH RISK: Target INR is 2.5-3.5 for pat ients with mechanical heart valves.U/S, ABDOMINAL, [id number] 23:10:00 Referring: Dr. Francis Jeronimo, .Reason for exam:->cirrhosisFINAL REPORT INDICATION: cirrhosis COMPARISON: None. TECHNIQUE: Real- time transabdominal lenz scale and color Doppler ultrasound of the abdomen. FINDINGS:Liver: Size: 13.3cm. Echogenicity: Increased hepatic echogenicity Masses/lesions: None. Surface Nodularity: Nodular contour. Intrahepatic bile ducts: Normal. Common bile duct: 0.4 cm. MPV: 0. 9cm. Gallbladder: Stones: Multiple echogenic stones layering within the gal lbladder lumen. Sludge: None. Wall thickness: 0.4 cm. The gallbladder kolton men is nondistended. Pericholecystic fluid: None. Sonographic Camacho's s ign: No sonographic Camacho's sign. Pancreas: Head and uncinate process: Not well seen secondary to poor acoustic window. Body and tail: Not well-seen. Spleen: Size: 17 x 5.8 x 6.5cm. Echogenicity: Unremarkable. Right kidney : Size: 10.7 x 4.8 x 5.7 cm. Parenchyma: Normal echogenicity. No cysts. No stones. Hydronephrosis: None. Left kidney: Size: 11.5 x 4.8 x 4.1 cm. Parenchyma: Normal echogenicity. No cysts. No stones. Hydronephrosis: None. Ascites: Present. Regional Vasculature: The visible abdominal IVC and hep atic veins are patent. The aorta is not well seen secondary to poor acoustic win roger. Additional findings: Moderate volume right pleural effusion.. IMPRESSION: Morphologic changes of cirrhosis with sequela of portal hypertension including intra-abdominal ascites and splenomegaly. Cholelithiasis without evidence of acu te cholecystitis. Moderate volume right pleural effusion Signed: Jeannette Hargrove MDReport Verified Date/Time: 10/26/2017 23:10:19 Reading Location: [address] Reading Room -GLUCOSE [id number] 22:02:00* Test Item Value Reference Range Comments POC-GLUCOSE METER (BEAKER) (test mrow=0822) 208 mg/dL 70-110 TESTED AT [facility] [address] [facility] [address] HEMOGLOBIN AND [id number] 22:01:00* Test Item Value Reference Range Comments HEMOGLOBIN (BEAKER) (test vkyk=139) 8.6 GM/DL 13.7-17.5 HEMATOCRIT (BEAKER) (test rfwg=913) 26.8 % 40.1-51.0 POCT-GLUCOSE [id number] 13:14:00* Test Item Value Reference Range Comments POC-GLUCOSE METER (BEAKER) (test nlab=4675) 166 mg/dL 70-110 TESTED AT [facility] [address] [facility] [address] CBC W/PLT COUNT & AUTO [id number] 10:31:00* Test Item Value Reference Range Comments WHITE BLOOD CELL COUNT (BEAKER) (test ojfw=084) 1.8 K/ L 3.5-10.5 RED BLOOD CELL COUNT (BEAKER) (test ercp=635) 2.86 M/ L 4.63-6.08 HEMOGLOBIN (BEAKER) (test puyj=010) 8.7 GM/DL 13.7-17.5 HEMATOCRIT (BEAKER) (test ozbd=349) 27.0 % 40.1-51.0 MEAN CORPUSCULAR VOLUME (BEAKER) (test bvlf=941) 94.4 fL 79.0-92.2 MEAN CORPUSCULAR HEMOGLOBIN (BEAKER) (test vcvt=669) 30.4 pg 25.7-32.2 MEAN CORPUSCULAR HEMOGLOBIN CONC (BEAKER) (test znbg=921) 32.2 GM/DL 32.3-36.5 RED CELL DISTRIBUTION WIDTH (BEAKER) (test rubb=230) 13.6 % 11.6-14.4 PLATELET COUNT (BEAKER) (test qvoi=020) 69 K/CU MM 150-450 MEAN PLATELET VOLUME (BEAKER) (test yrwb=019) 10.5 fL 9.4-12.4 NUCLEATED RED BLOOD CELLS (BEAKER) (test dywh=497) 0 /100 WBC 0-0 (CELLAVISION MANUAL DIFF)2017-10-26 10:31:00* Test Item Value Reference Range Comments NEUTROPHILS - REL (CELLAVISION)(BEAKER) (test cmhc=6873) 79 % LYMPHOCYTES - REL (CELLAVISION)(BEAKER) (test wkxc=3617) 14 % MONOCYTES - REL (CELLAVISION)(BEAKER) (test evar=8025) 3 % EOSINOPHILS - REL (CELLAVISION)(BEAKER) (test qrxu=8885) 3 % BASOPHILS - REL (CELLAVISION)(BEAKER) (test jcxy=8514) 1 % NEUTROPHILS - ABS (CELLAVISION)(BEAKER) (test msec=3758) 1.42 K/ul 1.78-5.38 LYMPHOCYTES - ABS (CELLAVISION)(BEAKER) (test urhn=3203) 0.25 K/ul 1.32-3.57 MONOCYTES - ABS (CELLAVISION)(BEAKER) (test gvjf=2094) 0.05 K/uL 0.30-0.82 EOSINOPHILS - ABS (CELLAVISION)(BEAKER) (test raqw=5519) 0.05 K/uL 0.04-0.54 BASOPHILS - ABS (CELLAVISION)(BEAKER) (test dlod=7306) 0.02 K/uL 0.01-0.08 TOTAL COUNTED (BEAKER) (test jjwy=3735) 100 WBC MORPHOLOGY (BEAKER) (test rmhj=794) Normal PLT MORPHOLOGY (BEAKER) (test ndgc=816) Normal POLYCHROMATOPHILLIC RBCS(BEAKER) (test rlla=915) 1+ few ANISOCYTOSIS (BEAKER) (test plpj=925) 1+ few POIKILOCYTES (BEAKER) (test zcgy=137) 1+ few ARTIFACT (CELLAVISION)(BEAKER) (test evsv=8354) Present PLATELET CONCENTRATION (CELLAVISION)(BEAKER) (test ezqk=7799) Decreased Received comment: User comments: Slide comments: POCT-GLUCOSE [id number] 08:31:00* Test Item Value Reference Range Comments POC-GLUCOSE METER (BEAKER) (test wvxr=4261) 105 mg/dL 70-110 TESTED AT [facility] [address] [facility] [address] HEPATIC FUNCTION [id number] 07:49:00* Test Item Value Reference Range Comments TOTAL PROTEIN (BEAKER) (test glay=567) 6.1 gm/dL 6.0-8.3 ALBUMIN (BEAKER) (test joff=0451) 3.0 g/dL 3.5-5.0 BILIRUBIN TOTAL (BEAKER) (test csxi=445) 1.0 mg/dL 0.2-1.2 BILIRUBIN DIRECT (BEAKER) (test pges=945) 0.5 mg/dL 0.1-0.5 ALKALINE PHOSPHATASE (BEAKER) (test rblw=174) 58 U/L 40-150 AST (SGOT) (BEAKER) (test exgp=775) 19 U/L 5-34 ALT (SGPT) (BEAKER) (test xfwx=584) 9 U/L 6-55 BASIC METABOLIC [id number] 07:49:00* Test Item Value Reference Range Comments SODIUM (BEAKER) (test ceyz=630) 134 meq/L 136-145 POTASSIUM (BEAKER) (test tbyu=646) 3.6 meq/L 3.5-5.1 CHLORIDE (BEAKER) (test kpwl=564) 101 meq/L 98-107 CO2 (BEAKER) (test xjyj=258) 26 meq/L 22-29 BLOOD UREA NITROGEN (BEAKER) (test zrrq=216) 15 mg/dL 7-21 CREATININE (BEAKER) (test nbzg=948) 1.53 mg/dL 0.57-1.25 GLUCOSE RANDOM (BEAKER) (test laut=996) 99 mg/dL 70-105 CALCIUM (BEAKER) (test evzm=084) 9.1 mg/dL 8.4-10.2 EGFR (BEAKER) (test ovgo=9314) 47 mL/min/1.73 sq m ESTIMATED GFR IS NOT ACCURATE CREATININE CLEARANCE IN PREDICTING GLOMERULAR FILTRATION RATE. ESTIMATED GFR IS NOT APPLICABLE FOR DIALYSIS PATIENTS. HEPATITIS PANEL, [id number] 07:37:00* Test Item Value Reference Range Comments HEPATITIS A IGM ANTIBODY (BEAKER) (test ynza=305) Nonreactive Nonreactive HEPATITIS B CORE IGM ANTIBODY (BEAKER) (test sfzq=871) Nonreactive Nonreactive HEPATITIS C ANTIBODY (BEAKER) (test qddf=300) Nonreactive Nonreactive HEPATITIS B SURFACE ANTIGEN (2) (BEAKER) (test dmgv=5094) Nonreactive Nonreactive PROTHROMBIN TIME/[id number] 06:51:00* Test Item Value Reference Range Comments PROTIME (BEAKER) (test vmsj=851) 22.3 seconds 11.7-14.7 INR (BEAKER) (test uton=428) 2.0 <=5.9 RECOMMENDED COUMADIN/WARFARIN INR THERAPY RANGESSTANDARD DOSE: 2.0 - 3.0 Inclu tabatha: PROPHYLAXIS for venous thrombosis, systemic embolization; TREATMENT for jace ous thrombosis and/or pulmonary embolus.HIGH RISK: Target INR is 2.5-3.5 for pat ients with mechanical heart valves.URINALYSIS W/ REFLEX URINE [id number] 21:37:00* Test Item Value Reference Range Comments COLOR (BEAKER) (test greb=056) Yellow CLARITY (BEAKER) (test lokx=761) Clear SPECIFIC GRAVITY UA (BEAKER) (test ebgo=772) 1.007 1.001-1.035 PH UA (BEAKER) (test bfcy=685) 6.5 5.0-8.0 PROTEIN UA (BEAKER) (test khsp=708) Negative Negative GLUCOSE UA (BEAKER) (test nygl=264) Negative Negative KETONES UA (BEAKER) (test asny=306) Negative Negative BILIRUBIN UA (BEAKER) (test hxdo=677) Negative Negative BLOOD UA (BEAKER) (test wlzg=449) Moderate Negative NITRITE UA (BEAKER) (test bsdp=341) Negative Negative LEUKOCYTE ESTERASE UA (BEAKER) (test dsbo=432) Negative Negative UROBILINOGEN UA (BEAKER) (test mwnv=139) 0.2 mg/dL 0.2-1.0 RBC UA (BEAKER) (test saxg=776) 12 /HPF WBC UA (BEAKER) (test mbbl=406) 2 /HPF SQUAMOUS EPITHELIAL (BEAKER) (test jaai=709) 1 /HPF SOURCE(BEAKER) (test zcex=7875) CT, BRAIN, WITHOUT [id number] 18:30:00Referring: Dr. Francis Jeronimo Jr.Reason for exam:->confusion since this morningWhat is the patient's sedation requirement?->No SedationFINAL REPORT CT head without contrast 10/25/2017 6:28 PM CLINICAL HISTORY: Encephalopathy, confusion since this morning TECHNIQUE: Axial noncontrast CT images through the head were obtained. This examination was performed according to our departmental dose optimization program, which includes automated exposure control, adjustment of the mA and/or kV according to patient size, and/or use of iterated reconstruction technique. COMPARISON: None available FINDINGS: There is no hemorrhage, extra-axial collection, mass, hydrocephalus, or midline shift. There is mild microvascular ischemia in the supratentorial white matter. There is atherosclerotic calcification of the intracranial arterial vasculature. There is generalized parenchymal volume loss. The visualized paranasal sinuses and mastoid air cells are well aerated. The skull is intact. IMPRESSION: No intracranial hemorrhage or mass effect. Chronic appearing microvascular and involutional changes. If concern for acute pathology persists, further evaluati on with MRI is recommended. Signed: Juan Antonio Adam Verified Date/Time: 10/25/2017 18:30:45 Reading Location: [facility] Rad[facility] Reading Room ONIN [id number] 18:11:00* Test Item Value Reference Range Comments TROPONIN I (BEAKER) (test ryjy=817) < ng/mL 0.00-0.03 Troponin I (TnI) levels must be interpreted in the context of the presenting sym ptoms and the clinical findings. Elevated TnI levels indicate myocardial damage, but are not specific for ischemic heart disease. Elevated TnI levels are seen in patients with other cardiac conditions (including myocarditis and congestive h eart failure), and slight TnI elevations occur in patients with other conditions , including sepsis, renal failure, acidosis, acute neurological disease, and per sistent tachyarrhythmia.[id number] 18:05:00* Test Item Value Reference Range Comments MAGNESIUM (BEAKER) (test qmui=424) 1.3 mg/dL 1.6-2.6 BASIC METABOLIC [id number] 18:05:00* Test Item Value Reference Range Comments SODIUM (BEAKER) (test nxzo=390) 132 meq/L 136-145 POTASSIUM (BEAKER) (test sluk=166) 3.9 meq/L 3.5-5.1 CHLORIDE (BEAKER) (test ukgh=543) 96 meq/L 98-107 CO2 (BEAKER) (test ptds=756) 27 meq/L 22-29 BLOOD UREA NITROGEN (BEAKER) (test essf=632) 16 mg/dL 7-21 CREATININE (BEAKER) (test oyqu=396) 1.65 mg/dL 0.57-1.25 GLUCOSE RANDOM (BEAKER) (test qefj=635) 136 mg/dL 70-105 CALCIUM (BEAKER) (test yvyg=503) 10.0 mg/dL 8.4-10.2 EGFR (BEAKER) (test uriq=0660) 43 mL/min/1.73 sq m ESTIMATED GFR IS NOT ACCURATE CREATININE CLEARANCE IN PREDICTING GLOMERULAR FILTRATION RATE. ESTIMATED GFR IS NOT APPLICABLE FOR DIALYSIS PATIENTS. HEPATIC FUNCTION [id number] 18:05:00* Test Item Value Reference Range Comments TOTAL PROTEIN (BEAKER) (test umbw=518) 6.9 gm/dL 6.0-8.3 ALBUMIN (BEAKER) (test zsyo=4286) 3.2 g/dL 3.5-5.0 BILIRUBIN TOTAL (BEAKER) (test oxut=924) 1.3 mg/dL 0.2-1.2 BILIRUBIN DIRECT (BEAKER) (test bxby=973) 0.6 mg/dL 0.1-0.5 ALKALINE PHOSPHATASE (BEAKER) (test zozy=467) 68 U/L 40-150 AST (SGOT) (BEAKER) (test bgvb=249) 22 U/L 5-34 ALT (SGPT) (BEAKER) (test btjd=833) 7 U/L 6-55 TSH/FREE T4 IF [id number] 17:37:00* Test Item Value Reference Range Comments THYROID STIMULATING HORMONE (BEAKER) (test zpvc=562) 1.93 uIU/mL 0.35-4.94 RAD, CHEST, 1 VIEW, NON [id number] 17:25:00Referring: Dr. Francis Jeronimo Jr.Reason for exam:->FATIGUEFINAL REPORT EXAM: Frontal chest radiograph HISTORY PROVIDED: Fatigue COMPARISON: None available IMPRESSION:There is elevation of the right hemidiaphragm as well as a small pleural effusion with adjacent basilar opacities likely representing atelectasis. Pneumonitis should be excluded clinically. A small amount of fluid is seen within the right minor fissure. The left lung is clear save for streaky opacities in the left lung base likely representing atelectasis. No discernible pneumothorax. The cardiac silhouette is normal in size. No acute osseous abnormality. There are degenerative changes of the spine. The bones appear demineralized. Signed: [facility] Verified Date/Time: 10/25/2017 17:25:34 Reading Location: [facility] Women ONIN [id number] 17:23:00* Test Item Value Reference Range Comments TROPONIN I (BEAKER) (test izys=326) 0.01 ng/mL 0.00-0.03 Troponin I (TnI) levels must be interpreted in the context of the presenting sym ptoms and the clinical findings. Elevated TnI levels indicate myocardial damage, but are not specific for ischemic heart disease. Elevated TnI levels are seen in patients with other cardiac conditions (including myocarditis and congestive h eart failure), and slight TnI elevations occur in patients with other conditions , including sepsis, renal failure, acidosis, acute neurological disease, and per sistent tachyarrhythmia.[id number] 17:08:00* Test Item Value Reference Range Comments AMMONIA (BEAKER) (test vfqn=485) 48 mol/L 18-72 CBC W/PLT COUNT & AUTO [id number] 16:52:00* Test Item Value Reference Range Comments WHITE BLOOD CELL COUNT (BEAKER) (test eixt=087) 4.8 K/ L 3.5-10.5 RED BLOOD CELL COUNT (BEAKER) (test letu=676) 3.25 M/ L 4.63-6.08 HEMOGLOBIN (BEAKER) (test tqrb=581) 9.9 GM/DL 13.7-17.5 HEMATOCRIT (BEAKER) (test jxli=544) 30.5 % 40.1-51.0 MEAN CORPUSCULAR VOLUME (BEAKER) (test ehjz=085) 93.8 fL 79.0-92.2 MEAN CORPUSCULAR HEMOGLOBIN (BEAKER) (test oqkn=870) 30.5 pg 25.7-32.2 MEAN CORPUSCULAR HEMOGLOBIN CONC (BEAKER) (test jeyq=350) 32.5 GM/DL 32.3-36.5 RED CELL DISTRIBUTION WIDTH (BEAKER) (test bpki=311) 13.7 % 11.6-14.4 PLATELET COUNT (BEAKER) (test gkka=130) 81 K/CU MM 150-450 MEAN PLATELET VOLUME (BEAKER) (test yxxa=061) 10.1 fL 9.4-12.4 NUCLEATED RED BLOOD CELLS (BEAKER) (test ltod=656) 0 /100 WBC 0-0 NEUTROPHILS RELATIVE PERCENT (BEAKER) (test domy=078) 75 % LYMPHOCYTES RELATIVE PERCENT (BEAKER) (test zrhc=281) 14 % MONOCYTES RELATIVE PERCENT (BEAKER) (test nwqj=776) 8 % EOSINOPHILS RELATIVE PERCENT (BEAKER) (test cdnm=344) 1 % BASOPHILS RELATIVE PERCENT (BEAKER) (test yabp=603) 1 % NEUTROPHILS ABSOLUTE COUNT (BEAKER) (test swko=252) 3.64 K/ L 1.78-5.38 LYMPHOCYTES ABSOLUTE COUNT (BEAKER) (test cjlk=146) 0.68 K/ L 1.32-3.57 MONOCYTES ABSOLUTE COUNT (BEAKER) (test nfwc=237) 0.37 K/ L 0.30-0.82 EOSINOPHILS ABSOLUTE COUNT (BEAKER) (test rceb=065) 0.07 K/ L 0.04-0.54 BASOPHILS ABSOLUTE COUNT (BEAKER) (test prsd=585) 0.03 K/ L 0.01-0.08 IMMATURE GRANULOCYTES-RELATIVE PERCENT (BEAKER) (test dwpd=5979) 1 % 0-1 PROTEIN, BODY [id number] 21:55:00* Test Item Value Reference Range Comments PROTEIN FLUID (BEAKER) (test dolc=015) < g/dL Absence of reference range indicates that normals have not been defined.Assay pe rformance has not been validated for this type of specimen.ALBUMIN, BODY FLUID 2017-06-27 21:55:00* Test Item Value Reference Range Comments ALBUMIN FLUID (BEAKER) (test anjm=226) 0.4 gm/dL Reference Range: No Normals Assay performance has not been validated for this type of specimen.BODY FLUID CELL COUNT WITH [id number] 21:46:00* Test Item Value Reference Range Comments APPEARANCE FLUID (BEAKER) (test ftfc=611) Clear Clear COLOR FLUID (BEAKER) (test taru=688) Straw Colorless, Straw RBC FLUID (BEAKER) (test yzhe=694) 331 /cu mm <=1 ADJUSTED WBC FLUID (BEAKER) (test dpjq=2478) 297 /cu mm <=5 LINING CELLS (BEAKER) (test xawo=3814) 3 /cu mm <=1 NEUTROPHILS FLUID (BEAKER) (test ytio=9209) 14 % LYMPHS FLUID (BEAKER) (test veqf=596) 23 % MONO/MACROPHAGE FLUID (BEAKER) (test buml=571) 63 % EOSINOPHILS FLUID (BEAKER) (test xmoh=890) 0 % BASO FLUID (BEAKER) (test hqxr=376) 0 % CONTAINER BODY FLUID (BEAKER) (test tdon=1511) EDTA Tube MR, ABDOMEN, [id number] 18:33:00Referring: Dr. Francis Jeronimo Jr.Please do after paracentesisFINAL REPORT INDICATION:61-year-old male with cirrhosis. Surveillance for hepatocellular carcinoma. COMPARISON: None. TECHNIQUE: MR of the Abdomen WITHOUT and WITH intravenous contrast. FINDINGS:Nodular liver contour and small liver size are in keeping with cirrhosis. No suspicious liver lesion or mass demonstrated. The splenic vein is enlarged measuring 17 mm in diameter and the spleen enlarged measuring 18 cm in diameter. There is near occlusive thrombus in the splenoportal confluence measuring 2.3 cm in length and 1.0 x 1.0 cm in cross-section. Main portal vein and right portal vein are slightly small in caliber. Several small proximal stomach varices noted. There is mild ascites. Gallbladder is mildly dilated. No biliary ductal dilatation demonstrated. Pancreas, adrenal glands, kidneys, and visualized bowel loops unremarkable. There is diffuse stranding and delayed enhancement of the retroperitoneal fat including that around the aorta and cava, suspicious for retroperitoneal fibrosis. No retroperitoneal mass or lymphadenopathy demonstrated. Lower thorax are notable for a large right pleural effusion. No suspicious marrow signal abnormality. IMPRESSION:Cirrhosis without evidence of hepatocellular carcinoma. Near occlusive thrombus in the splenoportal confluence. Diffuse stranding and delayed enhancement in the upper retroperitoneal fat, suspicious for retroperitoneal fibrosis. Large right pl eural effusion. Signed: Juarez Barnett MDR[facility]ort Verified Date/Time: 18:33:54 Reading Location: [facility] B1 C013Y CT Body Reading Room Electronically si gned by: JUAREZ BARNETT M.D. on 06/27/2017 06:33 PM U/S, PARACENTESIS 2017-06-27 16:42:00Referring: Dr. Francis Jeronimo Jr.Send ascitic fluid for cell count and differential, total protein, albuminIf Cr > 1.5, do not remove more than 3.5L of ascitic fluid. If > 3L removed, please administer 200 mL of albumin 25% (50 grams) IV x 1Reason for Exam:->AscitesFINAL REPORT Ultrasound guided paracentesis Clinical History: Ascites Local Anesthesia: 5 cc of 1% lidocaine Technique: Informed consent is obtained. The risks of pain, bleeding, infection, bowel perforation, injury to adjacent structures, and adverse medication reactions are discussed with the patient. After informed consent is obtained, the patient's abdomen is scanned. The right lower quadrant of the abdomen is selected for paracentesis. After the largest fluid pocket area is marked, and the anterior abdominal wall is evaluated with color Doppler to exclude presence of blood vessels traversing the area, the skin is prepped and draped in the usual sterile manner. After local anesthesia is achieved, a 5 Palauan catheter is advanced into the peritoneal cavity. Approximately 2400 cc. of serous fluid is drained, without immediate complic ations. Fluid is sent for analysis. Patient Disposition: The patient is disch arged from the ultrasound department after the paracentesis, in good condition. Impression: Successful and uncomplicated ultrasound guided paracentesis is per formed. Signed: Bill Urena MDR[facility] Verified Date/Time: 06/27/2017 16:42:41 R eading Location: [address] Ultrasound Reading Room -[id number] 15:10:00* Test Item Value Reference Range Comments POC-CREATININE (BEAKER) (test lzqf=1306) 1.0 mg/dL 0.6-1.3 TESTED AT [address] [address] POC-EGFR (BEAKER) (test wpxp=1007) 76 mL/min/1.73M2 ANTI-NUCLEAR ANTIBODY (RAMÍREZ)2017-06-26 09:55:00* Test Item Value Reference Range Comments ANTI-NUCLEAR ANTIBODY (RAMÍREZ) (BEAKER) (test kgsn=555) Positive Negative RAMÍREZ TITER AND [id number] 09:55:00* Test Item Value Reference Range Comments RAMÍREZ TITER (BEAKER) (test cxgm=2745) :160 RAMÍREZ PATTERN (BEAKER) (test honz=5459) Homogeneous [id number] 13:45:00* Test Item Value Reference Range Comments FERRITIN (BEAKER) (test zdcc=895) 39 ng/mL 5-275 HEPATITIS B SURFACE [id number] 12:22:00* Test Item Value Reference Range Comments HEPATITIS B SURFACE ANTIBODY (BEAKER) (test gqzi=821) < mIU/mL <8.0 HEPATITIS B SURFACE [id number] 12:21:00* Test Item Value Reference Range Comments HEPATITIS B SURFACE ANTIGEN (2) (BEAKER) (test hwyb=9513) Nonreactive Nonreactive HEPATITIS C [id number] 12:21:00* Test Item Value Reference Range Comments HEPATITIS C ANTIBODY (BEAKER) (test fccd=735) Nonreactive Nonreactive ALPHA FETOPROTEIN (AFP), TUMOR [id number] 12:19:00* Test Item Value Reference Range Comments ALPHA-FETOPROTEIN (BEAKER) (test lytb=6659) 2.1 ng/mL <10.0 HEPATITIS B CORE ANTIBODY, [id number] 12:19:00* Test Item Value Reference Range Comments HEPATITIS B CORE TOTAL ANTIBODY (BEAKER) (test roxg=385) Nonreactive Nonreactive HEPATITIS A ANTIBODY, [id number] 12:19:00* Test Item Value Reference Range Comments HEPATITIS A IGG ANTIBODY (BEAKER) (test hncw=1950) Nonreactive Nonreactive IRON, TIBC, % SAT. (WITHOUT FERRITIN)2017-06-24 12:06:00* Test Item Value Reference Range Comments IRON (BEAKER) (test xysw=038) 52 ug/dL 40-160 TOTAL IRON BINDING CAPACITY (BEAKER) (test yfgn=480) 245 ug/dL 250-450 IRON % SATURATION (2) (BEAKER) (test louc=6783) 21 % 20-55 COMPREHENSIVE METABOLIC [id number] 11:58:00* Test Item Value Reference Range Comments TOTAL PROTEIN (BEAKER) (test tkpk=430) 6.6 gm/dL 6.0-8.3 ALBUMIN (BEAKER) (test bnrt=9513) 3.3 g/dL 3.5-5.0 ALKALINE PHOSPHATASE (BEAKER) (test vowg=220) 80 U/L 40-150 BILIRUBIN TOTAL (BEAKER) (test vzbh=694) 0.7 mg/dL 0.2-1.2 SODIUM (BEAKER) (test phiw=543) 138 meq/L 136-145 POTASSIUM (BEAKER) (test uvnh=556) 5.1 meq/L 3.5-5.1 CHLORIDE (BEAKER) (test wxyr=676) 103 meq/L 98-107 CO2 (BEAKER) (test yckd=721) 29 meq/L 22-29 BLOOD UREA NITROGEN (BEAKER) (test sbxn=593) 18 mg/dL 7-21 CREATININE (BEAKER) (test vnhi=012) 1.25 mg/dL 0.57-1.25 GLUCOSE RANDOM (BEAKER) (test ezez=282) 151 mg/dL 70-105 CALCIUM (BEAKER) (test xtzk=745) 9.2 mg/dL 8.4-10.2 AST (SGOT) (BEAKER) (test bicu=198) 35 U/L 5-34 ALT (SGPT) (BEAKER) (test hvqa=890) 17 U/L 6-55 EGFR (BEAKER) (test wzyh=9762) 59 mL/min/1.73 sq m ESTIMATED GFR IS NOT ACCURATE CREATININE CLEARANCE IN PREDICTING GLOMERULAR FILTRATION RATE. ESTIMATED GFR IS NOT APPLICABLE FOR DIALYSIS PATIENTS. BILIRUBIN, [id number] 11:58:00* Test Item Value Reference Range Comments BILIRUBIN DIRECT (BEAKER) (test xcyo=805) 0.3 mg/dL 0.1-0.5 [id number] 11:54:00* Test Item Value Reference Range Comments ALPHA-1 ANTITRYPSIN (BEAKER) (test wnqm=405) 218.90 mg/dL 90.00-200.00 PROTHROMBIN [id number] 11:46:00* Test Item Value Reference Range Comments PROTIME (BEAKER) (test ojbz=618) 15.8 seconds 11.7-14.7 INR (BEAKER) (test fxfe=907) 1.3 <=5.9 RECOMMENDED COUMADIN/WARFARIN INR THERAPY RANGESSTANDARD DOSE: 2.0 - 3.0 Inclu tabatha: PROPHYLAXIS for venous thrombosis, systemic embolization; TREATMENT for jace ous thrombosis and/or pulmonary embolus.HIGH RISK: Target INR is 2.5-3.5 for pat ients with mechanical heart valves.CBC W/PLT COUNT & AUTO [id number] 11:35:00* Test Item Value Reference Range Comments WHITE BLOOD CELL COUNT (BEAKER) (test umvy=071) 2.5 K/ L 3.5-10.5 RED BLOOD CELL COUNT (BEAKER) (test dxrs=119) 3.75 M/ L 4.63-6.08 HEMOGLOBIN (BEAKER) (test imjt=855) 11.3 GM/DL 13.7-17.5 HEMATOCRIT (BEAKER) (test lkmw=184) 36.3 % 40.1-51.0 MEAN CORPUSCULAR VOLUME (BEAKER) (test hpei=993) 96.8 fL 79.0-92.2 MEAN CORPUSCULAR HEMOGLOBIN (BEAKER) (test ucct=123) 30.1 pg 25.7-32.2 MEAN CORPUSCULAR HEMOGLOBIN CONC (BEAKER) (test zffq=142) 31.1 GM/DL 32.3-36.5 RED CELL DISTRIBUTION WIDTH (BEAKER) (test uwpa=849) 15.0 % 11.6-14.4 PLATELET COUNT (BEAKER) (test itte=489) 66 K/CU MM 150-450 MEAN PLATELET VOLUME (BEAKER) (test orvc=519) 11.0 fL 9.4-12.4 NUCLEATED RED BLOOD CELLS (BEAKER) (test xvqq=924) 0 /100 WBC 0-0 NEUTROPHILS RELATIVE PERCENT (BEAKER) (test lqod=124) 74 % LYMPHOCYTES RELATIVE PERCENT (BEAKER) (test fpya=396) 16 % MONOCYTES RELATIVE PERCENT (BEAKER) (test ebus=928) 8 % EOSINOPHILS RELATIVE PERCENT (BEAKER) (test wobx=813) 1 % BASOPHILS RELATIVE PERCENT (BEAKER) (test htpn=639) 0 % NEUTROPHILS ABSOLUTE COUNT (BEAKER) (test fzne=527) 1.83 K/ L 1.78-5.38 LYMPHOCYTES ABSOLUTE COUNT (BEAKER) (test tnkp=824) 0.40 K/ L 1.32-3.57 MONOCYTES ABSOLUTE COUNT (BEAKER) (test czmi=174) 0.21 K/ L 0.30-0.82 EOSINOPHILS ABSOLUTE COUNT (BEAKER) (test tgsl=061) 0.03 K/ L 0.04-0.54 BASOPHILS ABSOLUTE COUNT (BEAKER) (test qcbk=834) 0.01 K/ L 0.01-0.08 IMMATURE GRANULOCYTES-RELATIVE PERCENT (BEAKER) (test ioxl=8554) 0 % 0-1
[2018-02-07] MEDS ORDERED: CEFOXITIN SOD 1 GM VIAL ONE (10:35)
[2018-02-07] MEDS ORDERED: IOPAMIDOL 610MG/1ML 300 MG/ML VIAL IV ONE (11:09)
[2018-02-07] MEDS ORDERED: HEPARIN SOD (PORCINE) 1000 UNIT/ML SDV ONE (11:23)
[2018-02-07] MEDS ORDERED: SODIUM CHLORIDE 0.9% 500ML 500 ML ONE (11:24)
[2018-02-07] MEDS: SODIUM CHLORIDE 0.9% 1000ML 1,000 ML IV SCH ×2 (13:05→23:05)
[2018-02-07] MEDS ORDERED: GABAPENTIN 100 MG CAP PO SCH (13:15)
[2018-02-07] MEDS ORDERED: ETOMIDATE 2 MG/ML 10 ML INJ IV ONE (13:39)
--- NOTE | 2018-02-07 13:40 | Diagnostic Imaging Report ---
EXAM: CHEST SINGLE (PORTABLE), AP Portable DATE: 02/07/2018 1:10 PM Time stamp on exam: 1:21 PM INDICATION: Central line placement COMPARISON: 02/04/2018 FINDINGS: LINES/TUBES: Left subclavian catheter with tip overlying the SVC. LUNGS: Right basilar opacity likely secondary to infiltrate. PLEURA: Small right pleural effusion. No pneumothorax. HEART AND MEDIASTINUM: Normal size and contour. BONES AND SOFT TISSUES: No acute findings. IMPRESSION: Right basilar opacity with small right pleural effusion. Signed by: Dr. Feliberto Lugo DO on 02/07/2018 1:36 PM
--- NOTE | 2018-02-07 13:40 | Operative Report ---
DATE OF PROCEDURE: February 07, 2018 PREOPERATIVE DIAGNOSIS: Bladder cancer. POSTOPERATIVE DIAGNOSIS: Bladder tumor of unknown behavior. OPERATION PERFORMED: Transurethral resection of bladder tumor, 2 cm in size. ANESTHESIA: General. INDICATIONS: This patient is a 62-year-old white male with chronic liver failure, ascites and a pleural effusion. He had been having intermittent episodes of gross hematuria since November of 2017. The patient went on to have a cystoscopy, which revealed a massive ascites and some small my of obstructing stones present in his kidneys, but no evidence of hydronephrosis. The patient went on to have a cystoscopy in my office, which was very uncomfortable for the patient. When I scoped him in the office, I saw very discolored urine and what I thought was a bladder tumor at the floor of the bladder. Since that time, the patient states he has passed several blood clots from his urine and his urine has cleared up. Further details, please refer to the history and physical. DESCRIPTION OF PROCEDURE: The patient was first seen by anesthesia who obtained an arterial line on him and a central line for intraoperative monitoring. The patient was placed under general anesthesia, dressed with Hibiclens in the lithotomy position in the usual fashion. The urethra was dilated from 18-Danish to 30-Danish with Leanne sounds. A 25-Danish Olympus resectoscope was inserted with a 30-degree oblique lens and the visual obturator. The sphincter and verumontanum appeared to be intact. The verumontanum was small. The prostate was estimated at about 35 g. Clear efflux was seen from both ureteral orifices. As I entered the bladder and irrigated with the sterile saline, visualization was much better now than it was in my office. In fact, I just saw a tiny stone in the bladder, which was flushed out with an Ellik. The area around the trigone appeared healthy. There was moderate bladder trabeculation. On the posterior wall and floor of the bladder, there was an area that appeared inflamed. I could not tell if this was chronic inflammation or carcinoma in situ. Therefore, I replaced the visual obturator with the resectoscope. I resected this area, which was about 2 cm to 1.5 cm to 2 cm in size. The cutting was set at 180 with a bipolar electrode and the coagulation at 100. Hemostasis was good. The specimens were collected with the Ellik and sent for pathology. A 20-Danish Flores catheter was inserted. The patient left the operating room in good condition. Blood loss was minimal. My impression at this time is that I most likely mistook a bunch of blood clots near the trigone as tumor when I did the cystoscopy in my office, but it was uncomfortable for him. I really could not get good visualization with the flexible cystoscope in the office. My visualization was much better at the time of the procedure today. Will see what the specimen comes back. The findings today with the rigid cystoscope and good bladder irrigation was substantially different than it was in my office 2 weeks ago. Also, it should be noted that the patient states he passed some blood clots, and it could be that I saw in the floor of the trigone and trigone of the bladder initially may have well just been blood clot. The patient will be monitored postoperatively in the hospital. A Flores catheter will be removed in the morning for a trial of voiding. If he can urinate tomorrow, I anticipate sending him home and further recommendations will be made after I get the final pathology report back. Job#: [id number] MAHENDRA
--- NOTE | 2018-02-07 14:03 | NUR ---
Patient admitted to unit from PACU. Patient is post op TURB. Patient lung hernandez clear to auscultation. Bowel sounds present buy hypoactive. Abdomen round and distended. No c/o pain. Flores catheter in place with blood tinged urine noted. 2+ edema noted to BLE. Right forearm IV in place with IV fluids infusing. No s/s of distress noted. Family at bedside
--- OUTSIDE RECORDS SUMMARY | 2018-02-07 14:15 | XMS REPORT | Clinical Summary ---
Author Author [facility] Organization [facility] Address Unknown Phone Unavailable Care Team Providers Care Cutter Grind Tool Technician Name Role Phone Patric Romero MD PCP [...] Taken Vital Sign Reading 01/30/2018 1:53 PM REFERENCE ASSISTANT Blood Pressure 130/65 01/30/2018 3:30 PM REFERENCE ASSISTANT Pulse 80 12/25/2017 12:07 PM CDT Temperature 36.3 C (97.4 F) 01/30/2018 1:53 PM REFERENCE ASSISTANT Respiratory Rate 17 01/30/2018 3:30 PM REFERENCE ASSISTANT Oxygen Saturation 100% - Inhaled Oxygen - [...] Lot Implanted Type Area Manufactur er 02/08/2020 [id number] / / [id number] Needle Yueh Centsis 19ga Str 5fr Surgical N/A: N/A COOK 7cm Cath Strl - [id number] Implants; INTERVENTI Implanted: 08/26/2017 (Quantity not Expanders; ONAL on file) Extenders; RADIOLOGY Surgical Wires [id number] / / Needle Yueh Centesis 19ga Pigtail Surgical N/A: N/A COOK Cath 5fr 15cm - [id number] Implants; INTERVENTI Implanted: 10/09/2017 (Quantity not Expanders; ONAL on file) Extenders; RADIOLOGY Surgical Wires 09/12/2020 [id number] / / [id number] Needle Yueh Centsis 19ga Str 5fr Surgical N/A: N/A COOK 7cm Cath Strl - [id number] Implants; INTERVENTI Implanted: 11/29/2017 (Quantity not Expanders; ONAL on file) Extenders; RADIOLOGY Surgical Wires 09/25/2020 [id number] / / [id number] Needle Yueh Centsis 19ga Str 5fr Surgical N/A: N/A COOK 7cm Cath Strl - [id number] Implants; INTERVENTI Implanted: 12/10/2017 (Quantity not Expanders; ONAL on file) Extenders; RADIOLOGY Surgical Wires 10/16/2020 [id number] / / [id number] Needle Yueh Centsis 19ga Str 5fr Surgical N/A: N/A COOK 7cm Cath Strl - [id number] Implants; INTERVENTI Implanted: 12/25/2017 (Quantity not Expanders; ONAL on file) Extenders; RADIOLOGY Surgical Wires Procedures Comments Procedure Name Priority Date/Time Associated Diagnosis US ABDOMINAL PARACENTESIS Routine 01/30/2018 Alcoholic cirrhosis of IMAGING 2:56 PM REFERENCE ASSISTANT liver with ascites (HCC) ESTIMATED GFR Routine 01/30/2018 11:00 AM REFERENCE ASSISTANT PARTIAL THROMBOPLASTIN Routine 01/30/2018 TIME (PTT) 11:00 AM REFERENCE ASSISTANT PROTHROMBIN TIME WITH INR Routine 01/30/2018 11:00 AM REFERENCE ASSISTANT BASIC METABOLIC PANEL Routine 01/30/2018 11:00 AM REFERENCE ASSISTANT HC COMPLETE BLD COUNT Routine 01/30/2018 W/AUTO DIFF 11:00 AM REFERENCE ASSISTANT US PELVIC NON OB LIMITED Routine 12/27/2017 [...] US Abdominal Paracentesis Imaging (01/30/2018 2:56 PM REFERENCE ASSISTANT) Only the most recent of 6 results [...] was used for local anesthesia. A 5 Algerian Yueh catheter was inserted into the peritoneal cavity. 5 L of yellow peritoneal fluid was removed. Aspirated fluid was also sent for laboratory analysis. The patient tolerated the procedure without difficulty. IMPRESSION: Ultrasound-guided diagnostic and therapeuticparacentesis. [id number] Procedure Note Hm Interface, Radiology Results Incoming - 01/30/2018 5:37 PM REFERENCE ASSISTANT EXAMINATION: US ABDOMINAL PARACENTESIS IMAGING CLINICAL HISTORY: [...] was used for local anesthesia. A 5 Algerian Yueh catheter was inserted into the peritoneal cavity. 5 L of yellow peritoneal fluid was removed. Aspirated fluid was also sent for laboratory analysis. The patient tolerated the procedure without difficulty. IMPRESSION: Ultrasound-guided diagnostic and therapeutic paracentesis. [facility] [place] [id number] Performing Organization Address City/[facility]/Zipcode Phone Number RELL [address] [place] [address] * Estimated GFR (01/30/2018 11:00 AM REFERENCE ASSISTANT) Only the most recent of 3 results within the time period is included. Estimated GFR 81 mL/min/1.73 m2 [facility] Comment: [facility] CatergoryUnitsInte rpretation G1 >=90 Normal or high G2 60-89Mildly decreased [id number] Mildly to moderately decreased [id number] Moderately to severely decreased G4 15-29Severely decreased G5 <15Kidney failure The eGFR was calculated using the Chronic Kidney Disease Epidemiology Collaboration (CKD-EPI) equation. Interpretation is based on recommendations of the National Kidney Foundation-Kidney Disease Outcomes Quality Initiative (NKF-KDOQI) published in 2014. Specimen Plasma specimen Performing Organization Address [facility] Phone Number [facility] [address] [place] [address] PATHOLOGY AND GENOMIC MEDICINE [place] [address] [address] * Partial thromboplastin time, activated (01/30/2018 11:00 AM REFERENCE ASSISTANT) Only the most recent of 6 results within the time period is included. PTT 39.3 (H) 23.0 - 36.0 sec [facility] Comment: [facility] PTT therapeutic range for unfractionated heparin is 61.0-112.0 seconds which corresponds to Anti-Xa 0.3-0.7 U/ml. Note:Change in Panic Value The PTT Panic Value is changing from 110 sec. to 100 sec. due to new instrumentation and reagents. Correlation studies have been performed to validate this result. Specimen Blood Performing Organization Address City/[facility]/Zipcode Phone Number [facility] [address] [place] [address] PATHOLOGY AND [facility] MEDICINE [address] * Prothrombin time with INR (01/30/2018 11:00 AM REFERENCE ASSISTANT) Only the most recent of 6 results within the time period is included. Prothrombin time 15.5 (H) 11.5 - 14.5 sec [facility] INR 1.26 [facility] Comment: [facility] For patients on anticoagulant therapy, reference ranges below: Indication: INR Value Treatment of Venous Thrombosis, 2.0-3.0 pulmonary emboli, or prophylaxis of a venous thrombosis, or systemic emboli. High dose, high risk patients 3.0-4.5 with mechanical valves. NOTE:INR values over 3.0 are sometimes associated with gastrointestinal hemorrhage, especially values over 4.0. Specimen Blood Performing Organization Address City/[facility]/Zipcode Phone Number [facility] [address] [place] [phone] PATHOLOGY AND [facility] MEDICINE [address] * CBC with platelet and differential (01/30/2018 11:00 AM REFERENCE ASSISTANT) Only the most recent of 5 results within the time period is included. WBC 3.4 (L) 4.2 - 11.0 k/uL [facility] RBC 3.37 (L) 4.04 - 5.86 m/uL [facility] HGB 10.3 (L) 13.0 - 17.3 g/dL [facility] HCT 32.3 (L) 34.0 - 45.0 % [facility] MCV 95.8 80.0 - 98.0 fL [facility] MCH 30.6 27.0 - 34.0 pg [facility] MCHC 31.9 31.5 - 36.5 g/dL [facility] RDW - SD 56.6 (H) 37.0 - 51.0 fL [facility] MPV 10.8 (H) 7.4 - 10.4 fL [facility] Platelet count 64 (L) 150 - 400 k/uL [facility] Nucleated RBC 0.00 /100 WBC [facility] Neutrophils 68.5 (H) 36.0 - 66.0 % [facility] Lymphocytes 19.2 (L) 24.0 - 44.0 % [facility] Monocytes 8.5 (H) 0.0 - 6.0 % [facility] Eosinophils 2.9 0.0 - 6.0 % [facility] Basophils 0.6 0.0 - 1.2 % [facility] Immature granulocytes 0.3 0.0 - 1.0 % [facility] Specimen Blood Performing Organization Address City/[facility] [place] [address] PATHOLOGY AND GENOMIC MEDICINE [address] * Basic metabolic panel (01/30/2018 11:00 AM REFERENCE ASSISTANT) Only the most recent of 5 results within the time period is included. Sodium 142 135 - 150 mEq/L [facility] Potassium 3.6 3.5 - 5.0 mEq/L [facility] Chloride 101 98 - 112 mEq/L [facility] CO2 33 (H) 24 - 31 mmol/L [facility] Anion gap 8@ANIO 7 - 15 mEq/L [facility] BUN 9 7 - 18 mg/dL [facility] Creatinine 1.00 0.70 - 1.20 mg/dL [facility] Glucose 88 65 - 100 mg/dL [facility] Calcium 9.0 8.8 - 10.2 mg/dL [facility] Specimen Plasma specimen Performing Organization Address City/[facility]/Zipcode Phone Number [facility] [address] [facility] [place] [address] PATHOLOGY AND GENOMIC MEDICINE [facility] [address] [place], [place] [id number] [place] [address] * US Pelvic Non Ob Limited (12/27/2017 [...] cannot be entirely excluded. Recommend clinical correlation. [facility] [place] [id number] Procedure Note Interface, Radiology Results Incoming - [...] cannot be entirely excluded. Recommend clinical correlation. [facility] [place] [place]-[id number] Performing Organization Address City/State/Zipcode Phone Number [facility] [address] [place] [address] * POC glucose (11/29/2017 7:39 AM CDT) Only the most recent of 2 results within the time period is included. POC glucose 109 (H) 65 - 100 mg/dL [facility] [place] [place] DEPARTMENT OF Comment: PATHOLOGY AND Meter ID: [id number] GENOMIC MEDICINE Patent Drafter: Lori Jones Performing Organization Address City/State/Zipcode Phone Number [facility] [place] [place] DEPARTMENT OF [address] [place] [address] PATHOLOGY AND GENOMIC MEDICINE * Estimated GFR (10/09/2017 7:00 AM CDT) Only the most recent of 2 results within the time period is included. GFR Non Af Amer 68 mL/min/1.73 m2 [facility] [place] [place] DEPARTMENT OF PATHOLOGY AND GENOMIC MEDICINE GFR Af Amer 82 mL/min/1.73 m2 [facility] [place] [place] DEPARTMENT OF Comment: PATHOLOGY AND Chronic kidney [...] Americans. Specimen Plasma specimen Performing Organization Address City/State/[facility] Phone Number [place] [phone] [facility] [place] [address] PATHOLOGY AND GENOMIC MEDICINE * Manual differential (08/26/2017 12:45 PM CDT) Manual differential PERFORMED [facility] [place] [place] DEPARTMENT OF PATHOLOGY AND GENOMIC MEDICINE Neutrophils 79.0 (H) 36.0 - 66.0 % [facility] [place] [place] DEPARTMENT OF PATHOLOGY AND GENOMIC MEDICINE Lymphocytes 17.0 (L) 24.0 - 44.0 % [facility] [place] [place] DEPARTMENT OF PATHOLOGY AND GENOMIC MEDICINE Monocytes 4.0 0.0 - 6.0 % [facility] [place] [place] DEPARTMENT OF PATHOLOGY AND GENOMIC MEDICINE Eosinophils 0.0 0.0 - 6.0 % [facility] [place] [place] DEPARTMENT OF PATHOLOGY AND GENOMIC MEDICINE Basophils 0.0 0.0 - 1.2 % [facility] [place] [place] DEPARTMENT OF PATHOLOGY AND GENOMIC MEDICINE Metamyelocytes 0 0 - 1 % [facility] [place] [place] DEPARTMENT OF PATHOLOGY AND GENOMIC MEDICINE Promyelocytes 0 0 - 1 % [facility] [place] [place] DEPARTMENT OF PATHOLOGY AND GENOMIC MEDICINE Platelet slide review Decreased (A) [facility] [place] [place] DEPARTMENT OF PATHOLOGY AND GENOMIC MEDICINE Ovalocytes Few [facility] [place] [place] DEPARTMENT OF PATHOLOGY AND GENOMIC MEDICINE Enlarged platelets Rare [facility] [place] [place] DEPARTMENT OF PATHOLOGY AND GENOMIC MEDICINE Performing Organization Address City/State/Zipcode Phone Number [facility] [address] [facility] [place] [address] PATHOLOGY AND GENOMIC MEDICINE after 02/06/2017 Insurance Payer Benefit Subscriber ID Type Phone Address Plan / Group BCBS BCBS xxxxxxxxxxxx PPO CHOICE PPO/CHERIE HODGES PPO Advance Directives Patient has advance care planning documents on file. For more information, [place] contact: Chris Pike [address] [place] [address]
[2018-02-07 14:18] VITALS: BP 115/56
[2018-02-07 14:43] VITALS: BP 115/56
[2018-02-07 14:47] VITALS: BP 115/56
[2018-02-07] MEDS ORDERED: GABAPENTIN 300 MG CAP PO SCH (15:00)
[2018-02-07] MEDS: HYDROCODONE/APAP 7.5MG-325MG 1 EA TAB PO PRN ×2 (15:13→19:11)
[2018-02-07 16:18] VITALS: BP 119/61
[2018-02-07] MEDS ORDERED: TEMAZEPAM 15 MG CAP PO SCH ×2 (17:00→21:00)
[2018-02-07] MEDS: CEFOXITIN 1GM/ NS 50ML 50 ML IV SCH (17:54)
[2018-02-07] MEDS: SPIRONOLACTONE 25 MG TAB PO SCH (17:55)
[2018-02-07] MEDS: DOCUSATE SODIUM 100 MG CAP PO SCH (17:55)
[2018-02-07] MEDS ORDERED: MIDAZOLAM HCL 2 MG/2 ML VIAL ONE (18:49)
[2018-02-07] MEDS ORDERED: FENTANYL CITRATE/PF 100MCG/2 ML INJ ONE (18:49)
--- NOTE | 2018-02-07 19:25 | NUR ---
received patient aaox3, resting in bed. no s/s of distress observed. family member at bedside. no needs voiced at this time. encouraged to call for help. bed locked and in lowest position, call light within easy reach. will continue to monitor the patient.
[2018-02-07] MEDS ORDERED: ONDANSETRON HCL INJ 2 MG/ML VIAL ONE (19:47)
[2018-02-07] MEDS ORDERED: SUCCINYLCHOLINE 200 MG/10 ML SYR ONE (19:47)
[2018-02-07] MEDS ORDERED: DEXAMETHASONE SOD PHOS INJ 4 MG/ML VIAL ONE (19:47)
[2018-02-07] MEDS ORDERED: SEVOFLURANE INHAL SOLN 250 ML PEN BTL ONE (19:47)
[2018-02-07 20:34] VITALS: BP 133/72
[2018-02-07] MEDS: GABAPENTIN 100 MG CAP PO SCH (20:34)
[2018-02-07] MEDS ORDERED: NON-FORMULARY MEDICATION (Pravastatin Sodium 40 MG) PO SCH (21:00)
[2018-02-07] MEDS ORDERED: PRAVASTATIN 20 MG TAB PO SCH (21:00)
[2018-02-07] MEDS ORDERED: LACTULOSE PO SCH (21:00)
[2018-02-07] MEDS ORDERED: LACTULOSE SYRUP 20 GM/30 ML UDC PO SCH (21:00)
[2018-02-08] VITALS: BP_SYST 107; BP_SYST 133; BP_DIAS 55; BP_DIAS 72
[2018-02-08] MEDS: CEFOXITIN 1GM/ NS 50ML 50 ML IV SCH ×3 (00:08→12:16)
--- NOTE | 2018-02-08 00:32 | Consultation ---
DATE OF CONSULTATION: ADDENDUM Patient with right pleural effusion, will continue with Lasix. Job#: [id number] RENETTA
--- NOTE | 2018-02-08 01:02 | History and Physical ---
PRIMARY CARE PHYSICIAN: . REQUESTING PHYSICIAN: Dr. Mann. CHIEF COMPLAINT: Neoplasm of the bladder. 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 Mann. Patient is now resting comfortably in bed with Flores in place with blood-tinged material draining into the Flores bag. He has mild pain. Denies any dizziness, chest pain, or shortness of breath. He denies any other symptoms. PAST MEDICAL HISTORY: Gout, neuropathy, GERD, hyperlipidemia, diabetes mellitus type 2, insomnia, thrombocytopenia, cirrhosis, BPH, urinary stone, peripheral vascular disease, alcohol abuse, alcoholic cirrhosis, esophageal varices without bleeding, and portal hypertension. PAST SURGICAL HISTORY: Hernia repair. ALLERGIES: PER ELECTRONIC MEDICAL RECORD. SOCIAL HISTORY: Patient is . He quit cigarettes in 1989. No alcohol since December 2013. MEDICATIONS: Per electronic medical record. REVIEW OF SYSTEMS: Denies any fevers, chills, sweats, nausea, vomiting, diarrhea, headache, chest pain, shortness of breath, or vision changes. PHYSICAL EXAMINATION VITAL SIGNS: Reviewed. GENERAL: A tired-appearing man resting in bed. HEENT: Anicteric. CARDIOVASCULAR: Normal S1 and S2. LUNGS: Moderate breath sounds. ABDOMEN: Soft, nontender, and nondistended. : Has a Flores in place with blood-tinged material draining in the Flores bag. EXTREMITIES: No edema. SKIN: Dry. PSYCHIATRIC: Normal affect. NEUROLOGIC: Alert and oriented x3, moving all extremities. LABS: Reviewed. MEDICATIONS: Reviewed. ASSESSMENT 1. Bladder mass. 2. Alcoholic cirrhosis. 3. Thrombocytopenia. 4. Hyperbilirubinemia. 5. Right pleural effusion. 6. Diabetes mellitus type 2. 7. Gastroesophageal reflux disease. 8. Hyperlipidemia. 9. Gout. PLAN 1. Bladder irrigation. 2. Restart home medication regimen. 3. Continue antibiotic regimen. 4. Continue rifaximin. 5. Check ammonia if patient becomes confused. 6. Use SCDs. 7. Continue PPI for GI prophylaxis. 8. Continue 40 mg of Lasix daily. 9. Follow up renal function in the morning. 10. Follow up with pathology. Job#: [id number] RENETTA
[2018-02-08 04:00] VITALS: BP 103/56
[2018-02-08] MEDS: HYDROCODONE/APAP 7.5MG-325MG 1 EA TAB PO PRN ×2 (04:40→11:30)
[2018-02-08 05:48] LABS: BASOPHILS % 0.3 % (0.0-1.0); HEMATOCRIT 25.5 % (38.2-49.6); HEMOGLOBIN 8.6 g/dL (14.0-18.0); LYMPHOCYTES # (AUTO) 0.4 (1.0-3.2); LYMPHOCYTES % 10.1 % (18.0-39.1); MEAN CORPUSCULAR HGB CONC 33.7 g/dL (31-35); MEAN CORPUSCULAR VOLUME 92.1 fL (81-99); MONOCYTES # (AUTO) 0.2 (0.2-0.8); MONOCYTES % 4.8 % (4.4-11.3); NEUTROPHILS # (AUTO) 3.2 (2.1-6.9); NEUTROPHILS % 84.5 % (38.7-80.0); PLATELET COUNT 52 x10e3/uL (140-360); RED BLOOD COUNT 2.77 x10e6/uL (4.3-5.7); RED CELL DISTRIBUTION WIDTH 14.6 % (11.7-14.4)
[2018-02-08 06:06] LABS: ALANINE AMINOTRANSFERASE 12 IU/L (0-55); ALBUMIN 2.2 g/dL (3.5-5.0); ALBUMIN/GLOBULIN RATIO 0.8 (0.8-2.0); ALKALINE PHOSPHATASE 104 IU/L (40-150); ANION GAP 10.8 mmol/L (8-16); BLOOD UREA NITROGEN 14 mg/dL (7-26); BUN/CREATININE RATIO 15 (6-25); CALCIUM 8.1 mg/dL (8.4-10.2); CARBON DIOXIDE 27 mmol/L (22-29); CHLORIDE 104 mmol/L (98-107); CREATININE, SERUM 0.92 mg/dL (0.72-1.25); EST GLOMERULAR FILTRATION RATE > 60 ML/MIN (60-); GLUCOSE 149 mg/dL (74-118); POTASSIUM 3.8 mmol/L (3.5-5.1); SODIUM 138 mmol/L (136-145)
--- NOTE | 2018-02-08 06:15 | NUR ---
kyle cath removed with tip intact per orders, patient tolerated well. dtv
[2018-02-08 06:18] LABS: CHOL/HDL RATIO 2.8 (3.9-4.7)
--- NOTE | 2018-02-08 07:11 | NUR ---
IM- progress note O/N; kyle removed. REVIEW OF SYSTEMS: Denies any fevers, chills, sweats, nausea, vomiting, diarrhea, headache, chest pain, shortness of breath, or vision changes. PHYSICAL EXAMINATION VITAL SIGNS: Reviewed. GENERAL: A tired-appearing man resting in bed. HEENT: Anicteric. CARDIOVASCULAR: Normal S1 and S2. LUNGS: Moderate breath sounds. ABDOMEN: Soft, nontender, and nondistended. : kyle absent. EXTREMITIES: No edema. SKIN: Dry. PSYCHIATRIC: Normal affect. NEUROLOGIC: Alert and oriented x3, moving all extremities. LABS: Reviewed. MEDICATIONS: Reviewed. ASSESSMENT 1. Bladder mass. 2. Alcoholic cirrhosis. 3. Thrombocytopenia. 4. Hyperbilirubinemia. 5. Right pleural effusion. 6. Diabetes mellitus type 2. 7. Gastroesophageal reflux disease. 8. Hyperlipidemia. 9. Gout. PLAN 1. Bladder irrigation. 2. Restart home medication regimen. 3. Continue antibiotic regimen. 4. Continue rifaximin. 5. Check ammonia if patient becomes confused. 6. Use SCDs. 7. Continue PPI for GI prophylaxis. 8. Continue 40 mg of Lasix daily. 9. Follow up renal function in the morning. 10. Follow up with pathology. 02/08 Hba1c/LDL 4.0/54. kyle out; doing well; d/c planning; Shankar Arevalo MD, PhD.
--- NOTE | 2018-02-08 07:30 | NUR ---
Rcvd patient in report this am. Patient is asleep in bed at this time. NO s/s of distress noted
[2018-02-08] MEDS: SPIRONOLACTONE 25 MG TAB PO SCH (08:57)
[2018-02-08] MEDS: GABAPENTIN 100 MG CAP PO SCH (08:57)
[2018-02-08] MEDS: DOCUSATE SODIUM 100 MG CAP PO SCH (08:57)
[2018-02-08] MEDS: SODIUM CHLORIDE 0.9% 1000ML 1,000 ML IV SCH ×2 (08:58→11:16)
[2018-02-08] MEDS ORDERED: SITAGLIPTIN 100 MG TAB PO SCH (09:00)
[2018-02-08] MEDS ORDERED: FUROSEMIDE 40 MG TAB PO SCH (09:00)
[2018-02-08] MEDS ORDERED: TRAMADOL HCL 50 MG TAB PO SCH (09:00)
[2018-02-08] MEDS ORDERED: RIFAXIMIN 550 MG TABLET PO SCH (09:00)
[2018-02-08] MEDS ORDERED: LACTULOSE SYRUP 20 GM/30 ML UDC PO SCH (09:00)
[2018-02-08] MEDS ORDERED: PANTOPRAZOLE SOD 40 MG TABEC PO SCH (09:00)
[2018-02-08 09:16] VITALS: BP 107/51
[2018-02-08 10:00] VITALS: BP 107/51
--- NOTE | 2018-02-08 10:29 | NUR ---
Accessibility Lift Technician to bedside to discuss plan of care with patient/family. CM/SW role and care transitions discussed. Anticipated discharge plan discussed along with duration of care. CM/SW discussed patients right to make decisions in care. CM/SW work hours given. Patient lives: with and daughter Admit/Transfer: from PACU POA/Emergency contact: Emely Sood [phone] Current/Previous Home Health: none PCP/Follow-up Care: Dr. Patric Haddad Current/Previous DME: none; pt is independent Other Services: none Employment Status: unemployed Areas of Concerns: none Referral Needs: none Education Needs: none IMM/ESQUIVEL given and signed (if applicable): n/a Goal for discharge: wants to go home today; at bedside will provide transportation CM/SW left business card at the bedside with contact information. Name and number was also written on the patients whiteboard. Patient verbalized understanding of discussion. CM will follow-up with ongoing discharge and transition of care needs.
[2018-02-08 13:07] VITALS: BP 115/56
--- NOTE | 2018-02-08 13:08 | NUR ---
Nutrition Screen Note RD Recommendation for Physician: Continue diet as ordered Plan of Care: RD following, monitoring for adequacy and tolerance Nutrition reason for involvement: Nutrition Risk Trigger MST score Primary Diagnose(s):Malignant neoplasm of the bladder Ht:70 in Wt:196.38lbs BMI: kg/m2 IBW:166lbs RD Assessment:(02/08/2018) Initial encounter with the patient. Pt states the food is too bland, but has been eating well [employer]ONER. Pt denies any difficulty chewing, swallowing, nor has nausea, vomiting or diarrhea. Current Diet: 1800 calorie ADA Malnutrition Evaluation (02/08/2018) The patient does not meet criteria for a specified degree of malnutrition at this time. Will re-evaluate at follow-up as appropriate. Diet Education Needs Assessment: Diet education not indicated. Diet Adequacy: Meeting calorie needs, Meeting protein needs, Meeting fluid needs Tolerance: Tolerating PO, Not Tolerating PO, Tolerating TF Nutrition Care Level:Wenceslao Leahy RD, LD, CNSC
[2018-02-08] MEDS ORDERED: MACROBID 100 M100 MG PO (13:19)
--- NOTE | 2018-02-08 13:30 | NUR ---
Patient voided at this time. Hematuria noted but Dr. Mann aware due to kyle being removed. 200ml of blood tinged urine noted
--- NOTE | 2018-02-08 13:50 | Progress Note ---
DATE: February 08, 2018 DISCHARGE PROGRESS NOTE AGE: 62 SEX: Male. The patient is now 1 day status post transurethral resection of the bladder tumor of unknown behavior. The Flores catheter was removed this morning. The patient is voiding light pink-colored urine. He denies pain except when he urinates. He states he feels well enough to go home. My plan at this time is to discharge the patient on Macrobid 100 mg p.o. twice daily, #20. He will have a return appointment to see me again in the office in 2 weeks to go over the results of the pathology. Job#: [id number] BOZENA
--- NOTE | 2018-02-08 14:09 | NUR ---
Removed Left subclavian central line at this time. Tip intact. 2 stitches removed. Patient noted to be bleeding. Pressure held for 5 minutes. Bleeding stopped and tegaderm applied.
--- NOTE | 2018-02-08 14:34 | NUR ---
Removed IV from right forearm. Pressure dressing with coban applied.
--- NOTE | 2018-02-08 14:52 | NUR ---
Patient discharged from facility to home. Patient assisted out via staff. Reviewed discharge paperwork, follow up appts and RX's given.
== END 2018-02-08 14:46 | disposition home or self-care (01) ==
LOC: OR 08:35 → PACU V 13:12 → MED/SURG 14:20
PROVIDERS: ADMIT Urology; ATTEND Urology
DX: D41.4 Neoplasm of uncertain behavior of bladder (principal); R31.0 Gross hematuria; N40.1 Benign prostatic hyperplasia with lower urinary tract symptoms; R35.1 Nocturia; R39.12 Poor urinary stream; N20.0 Calculus of kidney; E11.22 Type 2 diabetes mellitus with diabetic chronic kidney disease; I12.0 Hypertensive chronic kidney disease with stage 5 chronic kidney disease or end stage renal disease; N18.6 End stage renal disease; K64.4 Residual hemorrhoidal skin tags; K40.91 Unilateral inguinal hernia, without obstruction or gangrene, recurrent; K21.0 Gastro-esophageal reflux disease with esophagitis; K70.31 Alcoholic cirrhosis of liver with ascites; D69.6 Thrombocytopenia, unspecified; E80.6 Other disorders of bilirubin metabolism; J90 Pleural effusion, not elsewhere classified; M10.9 Gout, unspecified; E78.5 Hyperlipidemia, unspecified
CPT/HCPCS: 36415 ×3; 52235; 71045; 71046; 80053 ×2; 80061; 82948 ×2; 83036; 85025 ×2; 85610; 85730; 88307; 93005; C1758; G0378 ×2; J0694; J1100; J1644; J2250; J2405; J7030; J7040; S0164; 88305

== ENCOUNTER 2018-02-09 01:38 | Emergency (ER) | payer BC ==
[~2018-02-09] VITALS: Ht 177.8 cm; Wt 88.9 kg
[~2018-02-09 01:38] MED LIST changes: +MACROBID 100 M100 MG PO
--- OUTSIDE RECORDS SUMMARY | 2018-02-09 01:41 | XMS REPORT | Clinical Summary ---
Author Author [facility] Address Unknown Phone Unavailable Care Team Providers Care Electrophysiology Tech Name Role Phone Patric Romero MD PCP [...] with ascites 10/09/2017 Hospital Radiology Encounter Sury Kleni 10/08/2017 Telephone Radiology Patric Romero MD Alcoholic cirrhosis of liver with ascites (Primary Dx) 10/07/2017 Transcribe Access Orders Patric Romero MD Alcoholic cirrhosis of liver with ascites 08/26/2017 Hospital Radiology Encounter Patric Romero MD Alcoholic cirrhosis of liver with ascites (Primary Dx) 08/22/2017 Transcribe Access Orders after 02/08/2017 Family History Medical History Relation Name Comments [...] Taken Vital Sign Reading 01/30/2018 1:53 PM CUPBOARD BUILDER Blood Pressure 130/65 01/30/2018 3:30 PM CUPBOARD BUILDER Pulse 80 12/25/2017 12:07 PM CDT Temperature 36.3 C (97.4 F) 01/30/2018 1:53 PM CUPBOARD BUILDER Respiratory Rate 17 01/30/2018 3:30 PM CUPBOARD BUILDER Oxygen Saturation 100% - Inhaled Oxygen - [...] Lot Implanted Type Area Manufactur er 02/08/2020 [id number] / / [id number] Needle Yueh Centsis 19ga Str 5fr Surgical N/A: N/A COOK 7cm Cath Strl - [id number] Implants; INTERVENTI Implanted: 08/26/2017 (Quantity not Expanders; ONAL on file) Extenders; RADIOLOGY Surgical Wires [id number] / / Needle Yueh Centesis 19ga Pigtail Surgical N/A: N/A COOK Cath 5fr 15cm - [id number] Implants; INTERVENTI Implanted: 10/09/2017 (Quantity not Expanders; ONAL on file) Extenders; RADIOLOGY Surgical Wires 09/12/2020 [id number] / / [id number] Needle Yueh Centsis 19ga Str 5fr Surgical N/A: N/A COOK 7cm Cath Strl - [id number] Implants; INTERVENTI Implanted: 11/29/2017 (Quantity not Expanders; ONAL on file) Extenders; RADIOLOGY Surgical Wires 09/25/2020 [id number] / / [id number] Needle Yueh Centsis 19ga Str 5fr Surgical N/A: N/A COOK 7cm Cath Strl - [id number] Implants; INTERVENTI Implanted: 12/10/2017 (Quantity not Expanders; ONAL on file) Extenders; RADIOLOGY Surgical Wires 10/16/2020 [id number] / / [id number] Needle Yueh Centsis 19ga Str 5fr Surgical N/A: N/A COOK 7cm Cath Strl - [id number] Implants; INTERVENTI Implanted: 12/25/2017 (Quantity not Expanders; ONAL on file) Extenders; RADIOLOGY Surgical Wires Procedures Comments Procedure Name Priority Date/Time Associated Diagnosis US ABDOMINAL PARACENTESIS Routine 01/30/2018 Alcoholic cirrhosis of IMAGING 2:56 PM CUPBOARD BUILDER liver with ascites (HCC) ESTIMATED GFR Routine 01/30/2018 11:00 AM CUPBOARD BUILDER PARTIAL THROMBOPLASTIN Routine 01/30/2018 TIME (PTT) 11:00 AM CUPBOARD BUILDER PROTHROMBIN TIME WITH INR Routine 01/30/2018 11:00 AM CUPBOARD BUILDER BASIC METABOLIC PANEL Routine 01/30/2018 11:00 AM CUPBOARD BUILDER HC COMPLETE BLD COUNT Routine 01/30/2018 W/AUTO DIFF 11:00 AM CUPBOARD BUILDER US PELVIC NON OB LIMITED Routine 12/27/2017 [...] Routine 08/26/2017 DIFFERENTIAL 12:45 PM CDT after 02/08/2017 Results * US Abdominal Paracentesis Imaging (01/30/2018 2:56 PM CUPBOARD BUILDER) Only the most recent of 6 results [...] was used for local anesthesia. A 5 Mongolian Yueh catheter was inserted into the peritoneal cavity. 5 L of yellow peritoneal fluid was removed. Aspirated fluid was also sent for laboratory analysis. The patient tolerated the procedure without difficulty. IMPRESSION: Ultrasound-guided diagnostic and therapeuticparacentesis. [id number] Procedure Note Hm Interface, Radiology Results Incoming - 01/30/2018 5:37 PM CUPBOARD BUILDER EXAMINATION: US ABDOMINAL PARACENTESIS IMAGING CLINICAL HISTORY: [...] was used for local anesthesia. A 5 Mongolian Yueh catheter was inserted into the peritoneal cavity. 5 L of yellow peritoneal fluid was removed. Aspirated fluid was also sent for laboratory analysis. The patient tolerated the procedure without difficulty. IMPRESSION: Ultrasound-guided diagnostic and therapeutic paracentesis. [facility]-[id number] Performing Organization Address City/[facility]/Zipcode Phone Number RE[facility] [address] [place] [address] * Estimated GFR (01/30/2018 11:00 AM CUPBOARD BUILDER) Only the most recent of 3 results within the time period is included. Estimated GFR 81 mL/min/1.73 m2 [facility] Comment: [facility] CatergoryUnitsInte rpretation G1 >=90 Normal or high G2 60-89Mildly decreased [id number] Mildly to moderately decreased Q4a42-15 Moderately to severely decreased G4 15-29Severely decreased G5 <15Kidney failure The eGFR was calculated using the Chronic Kidney Disease Epidemiology Collaboration (CKD-EPI) equation. Interpretation is based on recommendations of the National Kidney Foundation-Kidney Disease Outcomes Quality Initiative (NKF-KDOQI) published in 2014. Specimen Plasma specimen Performing Organization Address [facility]/Unm Hospitalcode Phone Number [facility] [address] [place] [address] PATHOLOGY AND GENOMIC MEDICINE [place] [address] * Partial thromboplastin time, activated (01/30/2018 11:00 AM CUPBOARD BUILDER) Only the most recent of 6 results within the time period is included. PTT 39.3 (H) 23.0 - 36.0 sec [facility] Comment: [facility] PTT therapeutic range for unfractionated heparin is 61.0-112.0 seconds which corresponds to Anti-Xa 0.3-0.7 U/ml. Note:Change in Panic Value The PTT Panic Value is changing from 110 sec. to 100 sec. due to new instrumentation and reagents. Correlation studies have been performed to validate this result. Specimen Blood Performing Organization Address City/[facility]/Zipcode Phone Number [facility] [address] [place] [address] PATH[facility] [address] * Prothrombin time with INR (01/30/2018 11:00 AM CUPBOARD BUILDER) Only the most recent of 6 results within the time period is included. Prothrombin time 15.5 (H) 11.5 - 14.5 sec [facility] INR 1.26 [facility] Comment: [facility] For patients on anticoagulant therapy, reference ranges below: Indication: INR Value Treatment of Venous Thrombosis, 2.0-3.0 pulmonary emboli, or prophylaxis of a venous thrombosis, or systemic emboli. High dose, high risk patients 3.0-4.5 with mechanical valves. NOTE:INR values over 3.0 are sometimes associated with gastrointestinal hemorrhage, especially values over 4.0. Specimen Blood Performing Organization Address City/[facility]/Zipcode Phone Number [facility] [address] [place] [phone] PATHOLOGY [facility] [address] * CBC with platelet and differential (01/30/2018 11:00 AM CUPBOARD BUILDER) Only the most recent of 5 results within the time period is included. WBC 3.4 (L) 4.2 - 11.0 k/uL [facility] RBC 3.37 (L) 4.04 - 5.86 m/uL [facility] HGB 10.3 (L) 13.0 - 17.3 g/dL [facility] HCT 32.3 (L) 34.0 - 45.0 % [facility] MCV 95.8 80.0 - 98.0 fL [facility] MCH 30.6 27.0 - 34.0 pg [facility] MCHC 31.9 31.5 - 36.5 g/dL [facility] RDW - SD 56.6 (H) 37.0 - 51.0 fL [facility] MPV 10.8 (H) 7.4 - 10.4 fL [facility] Platelet count 64 (L) 150 - 400 k/uL [facility] Nucleated RBC 0.00 /100 WBC [facility] Neutrophils 68.5 (H) 36.0 - 66.0 % [facility] Lymphocytes 19.2 (L) 24.0 - 44.0 % [facility] Monocytes 8.5 (H) 0.0 - 6.0 % [facility] Eosinophils 2.9 0.0 - 6.0 % [facility] Basophils 0.6 0.0 - 1.2 % [facility] Immature granulocytes 0.3 0.0 - 1.0 % [facility] Specimen Blood Performing Organization Address City/[facility]/Unm Hospitalcode [place] [address] PATHOLOGY AND GENOMIC MEDICINE [address] * Basic metabolic panel (01/30/2018 11:00 AM CUPBOARD BUILDER) Only the most recent of 5 results within the time period is included. Sodium 142 135 - 150 mEq/L [facility] Potassium 3.6 3.5 - 5.0 mEq/L [facility] Chloride 101 98 - 112 mEq/L [facility] CO2 33 (H) 24 - 31 mmol/L [facility] Anion gap 8@ANIO 7 - 15 mEq/L [facility] BUN 9 7 - 18 mg/dL [facility] Creatinine 1.00 0.70 - 1.20 mg/dL [facility] Glucose 88 65 - 100 mg/dL [facility] Calcium 9.0 8.8 - 10.2 mg/dL [facility] Specimen Plasma specimen Performing Organization Address City/[facility]/Zipcode Phone Number [facility] [address] [facility] [place] [address] PATHOLOGY AND GENOMIC MEDICINE [facility] [address] [place], [place] [id number] [place] [address] * US Pelvic Non Ob Limited (12/27/2017 [...] cannot be entirely excluded. Recommend clinical correlation. [facility]-[id number] Procedure Note Interface, Radiology Results Incoming - [...] cannot be entirely excluded. Recommend clinical correlation. [facility]-[id number] Performing Organization Address City/State/Zipcode Phone Number [facility] [address] [place] [address] * POC glucose (11/29/2017 7:39 AM CDT) Only the most recent of 2 results within the time period is included. POC glucose 109 (H) 65 - 100 mg/dL [facility] DEPARTMENT OF Comment: PATHOLOGY AND Meter ID: [id number] GENOMIC MEDICINE Nuisance Wildlife Trapper: Lori Jones Performing Organization Address City/State/Zipcode Phone Number [facility] DEPARTMENT OF [address] [place] [address] PATHOLOGY AND GENOMIC MEDICINE * Estimated GFR (10/09/2017 7:00 AM CDT) Only the most recent of 2 results within the time period is included. GFR Non Af Amer 68 mL/min/1.73 m2 [facility] DEPARTMENT OF PATHOLOGY AND GENOMIC MEDICINE GFR Af Amer 82 mL/min/1.73 m2 [facility] DEPARTMENT OF Comment: PATHOLOGY AND Chronic kidney [...] Americans. Specimen Plasma specimen Performing Organization Address City/State/Unm Hospitalcode Phone Number [place] [phone] [facility] [place] [address] PATHOLOGY AND GENOMIC MEDICINE * Manual differential (08/26/2017 12:45 PM CDT) Manual differential PERFORMED [facility] DEPARTMENT OF PATHOLOGY AND GENOMIC MEDICINE Neutrophils 79.0 (H) 36.0 - 66.0 % [facility] DEPARTMENT OF PATHOLOGY AND GENOMIC MEDICINE Lymphocytes 17.0 (L) 24.0 - 44.0 % [facility] DEPARTMENT OF PATHOLOGY AND GENOMIC MEDICINE Monocytes 4.0 0.0 - 6.0 % [facility] DEPARTMENT OF PATHOLOGY AND GENOMIC MEDICINE Eosinophils 0.0 0.0 - 6.0 % [facility] DEPARTMENT OF PATHOLOGY AND GENOMIC MEDICINE Basophils 0.0 0.0 - 1.2 % [facility] DEPARTMENT OF PATHOLOGY AND GENOMIC MEDICINE Metamyelocytes 0 0 - 1 % [facility] DEPARTMENT OF PATHOLOGY AND GENOMIC MEDICINE Promyelocytes 0 0 - 1 % [facility] DEPARTMENT OF PATHOLOGY AND GENOMIC MEDICINE Platelet slide review Decreased (A) [facility] DEPARTMENT OF PATHOLOGY AND GENOMIC MEDICINE Ovalocytes Few [facility] DEPARTMENT OF PATHOLOGY AND GENOMIC MEDICINE Enlarged platelets Rare [facility] DEPARTMENT OF PATHOLOGY AND GENOMIC MEDICINE Performing Organization Address City/State/Zipcode Phone Number [facility] [address] [facility] [place] [address] PATHOLOGY AND GENOMIC MEDICINE after 02/08/2017 Insurance Payer Benefit Subscriber ID Type Phone Address Plan / Group BCBS BCBS xxxxxxxxxxxx PPO CHOICE PPO/CHERIE HODGES PPO Advance Directives Patient has advance care planning documents on file. For more information, [place] contact: Chris Pike [address] [place] [address]
[2018-02-09] MEDS ORDERED: LIDOCAINE JELLY 2% 10ML URO-JET ONE (01:53)
[2018-02-09] MEDS ORDERED: LIDOCAINE JELLY 2% 10ML URO-JET TOP ONE (02:00)
--- NOTE | 2018-02-09 02:05 | NUR ---
20 FR CATHETER INSERTED USING STERILE TECHNIQUE. 750CC DARK RED COLORED URINE C CLOTS NOTED.
[2018-02-09 02:20] LABS: CLARITY,URINE CLOUDY (CLEAR); COLOR,URINE AMBER (YELLOW)
[2018-02-09 02:21] LABS: BILIRUBIN,URINE NEGATIVE (NEGATIVE); EPITHELIAL CELLS,URINE RARE /LPF; KETONES,URINE NEGATIVE (NEGATIVE); LEUKOCYTE ESTERASE ,URINE NEGATIVE (NEGATIVE); NITRITE,URINE NEGATIVE (NEGATIVE); PROTEIN,URINE DIPSTICK 1+ (NEGATIVE); RBC,URINE 21-50 /HPF (0-5); URINE UROBILINOGEN 0.2 mg/dL (0.2 - 1); WBC,URINE (MAN) 0-5 /HPF (0-5)
[2018-02-09 02:45] LABS: BASOPHILS % 0.2 % (0.0-1.0); EOSINOPHILS % 0.2 % (0.0-6.0); HEMATOCRIT 28.1 % (38.2-49.6); HEMOGLOBIN 9.5 g/dL (14.0-18.0); LYMPHOCYTES # (AUTO) 0.5 (1.0-3.2); LYMPHOCYTES % 4.2 % (18.0-39.1); MEAN CORPUSCULAR HEMOGLOBIN 31.4 pg (28-32); MEAN CORPUSCULAR HGB CONC 33.8 g/dL (31-35); MEAN CORPUSCULAR VOLUME 92.7 fL (81-99); MONOCYTES # (AUTO) 0.6 (0.2-0.8); NEUTROPHILS # (AUTO) 10.9 (2.1-6.9); NEUTROPHILS % 89.7 % (38.7-80.0); PLATELET COUNT 57 x10e3/uL (140-360); RED BLOOD COUNT 3.03 x10e6/uL (4.3-5.7); RED CELL DISTRIBUTION WIDTH 15.2 % (11.7-14.4)
[2018-02-09] MEDS ORDERED: SODIUM CHLORIDE 0.9% 1000ML 1,000 ML IV ONE ×2 (02:45→03:30)
[2018-02-09 02:54] LABS: INR 1.39; PARTIAL THROMBOPLASTIN TIME 36.8 seconds (23.8-35.5); PROTHROMBIN TIME 18.2 seconds (11.9-14.5)
--- NOTE | 2018-02-09 03:00 | NUR ---
PT RESTING WITH EYES CLOSED, EASILY AROUSED SKIN W/D RESP NONLAB, NAD NOTED. STATES FEELS BETTER
[2018-02-09 03:03] LABS: ALBUMIN 2.7 g/dL (3.5-5.0); ALBUMIN/GLOBULIN RATIO 0.9 (0.8-2.0); ANION GAP 14.9 mmol/L (8-16); CALCIUM 8.7 mg/dL (8.4-10.2); CREATININE, SERUM 1.4 mg/dL (0.72-1.25); POTASSIUM 3.9 mmol/L (3.5-5.1)
[2018-02-09] MEDS ORDERED: SODIUM CHLORIDE 0.9% 1000ML 1,000 ML ONE (03:24)
[2018-02-09] MEDS ORDERED: ACETAMINOPHEN 325 MG TAB PO PRN (04:00)
--- NOTE | 2018-02-09 06:00 | NUR ---
RESTING WITH EYES CLOSED, EASILY AROUSED, EMPTIED 275 FROM SAPP. STATES HE FEELS BETTER. AWAKE ALERT SKIN W/D RESP NONLAB, NAD NOTED.
[2018-02-09 06:20] VITALS: BP 97/63
== END 2018-02-09 06:31 | disposition home or self-care (01) ==
LOC: ER 01:38
DX: R33.9 Retention of urine, unspecified (principal); R31.0 Gross hematuria; R10.30 Lower abdominal pain, unspecified; I10 Essential (primary) hypertension; E11.9 Type 2 diabetes mellitus without complications; Z85.51 Personal history of malignant neoplasm of bladder; Z87.19 Personal history of other diseases of the digestive system
CPT/HCPCS: 36415; 51702; 80053; 81001; 85025; 85610; 85730; 86850; 86900; 87086; 99283; J7030; 51700